=== PATIENT | male | born 1955 | race Caucasian/White ===

== ENCOUNTER 2019-04-07 08:45 | Emergency (ER) | payer OTHER ==
--- NOTE | 2019-04-07 11:04 | ED ---
Lower Extremity - HPI Summary HPI Summary: Patient is a 63-year-old male presenting to the ED with worsening right hip and groin pain over the past several weeks. He states at this time he is beginning to use a cane as symptoms have worsened. Denies any issues with range of motion. Denies any trauma or discolorations. Denies any numbness or tingling to the bilateral lower extremities. His most notably to the right lateral side of the hip and is non-radiating. Denies back pain, abdominal pain or SOB. Has been taking ibuprofen with minimal relief. - History of Current Complaint Chief Complaint: EDHipPelvisInjury Stated Complaint: PAIN IN RIGHT HIP PER PT Time Seen by Provider: 04/07/19 08:56 Hx Obtained From: Patient Mechanism Of Injury: Other - no trauma Onset/Duration: Worse Since - 3 months has been worsening Severity Initially: Moderate Severity Currently: Moderate Pain Intensity: 2 Pain Scale Used: 0-10 Numeric Timing: Constant Location: Is Discrete @ - right lateral hip Character Of Pain: Aching Associated Signs And Symptoms: Negative: Swelling, Bruising, Weakness, Dizziness , Knee Pain Aggravating Factor(s): Standing, Ambulation Alleviating Factor(s): Rest Able to Bear Weight: Yes - painful and is now using cane for ambulation - Risk Factors Gout Risk Factors: Negative DVT Risk Factors: Negative Septic Arthritis Risk Factor: Negative - Allergies/Home Medications Allergies/Adverse Reactions: Allergies Allergy/AdvReac Type Severity Reaction Status Date / Time No Known Allergies Allergy Verified 04/07/19 09:38 Home Medications: Home Medications Naproxen Sodium [Aleve] 220 mg PO BID PRN 04/07/19 [History Confirmed 04/07/19] PMH/Surg Hx/FS Hx/Imm Hx Previously Healthy: Yes Endocrine/Hematology History: Denies: Hx Diabetes Cardiovascular History: Reports: Other Cardiovascular Problems/Disorders - ON B- KATHLEEN (PORTAL HTN?) & LASIX (EDEMA?) Denies: Hx Congestive Heart Failure, Hx Hypertension GI History: Reports: Hx Cirrhosis, Other GI Disorders - 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 History: Reports: Hx Kidney Stones, Other Problems/Disorders - RENAL CALCULI Denies: Hx Renal Disease Sensory History: Reports: Hx Contacts or Glasses - FOR READING Opthamlomology History: Reports: Hx Contacts or Glasses - FOR READING - Immunization History Hx Pertussis Vaccination: No Immunizations Up to Date: Yes Infectious Disease History: Yes Infectious Disease History: Reports: Hx Hepatitis - HEPATITIS C Denies: Traveled Outside the [place] in Last 30 Days - Social History Occupation: Employed Full-time Lives: Alone Alcohol Use: None Hx Substance Use: No Substance Use Type: Reports: None Smoking Status (MU): Former Smoker Type: Cigarettes Have You Smoked in the Last Year: Yes Review of Systems Constitutional: Negative Negative: Fever, Chills, Fatigue, Skin Diaphoresis Negative: Palpitations, Chest Pain Negative: Shortness Of Breath, Cough Genitourinary: Negative Positive: no symptoms reported, see HPI Positive: Arthralgia - right sided hip pain - lateral. Negative: Myalgia Skin: Negative Neurological: Negative All Other Systems Reviewed And Are Negative: Yes Physical Exam Triage Information Reviewed: Yes Vital Signs On Initial Exam: Initial Vitals Temp Pulse Resp BP Pulse Ox 99.4 F 113 18 143/79 98 04/07/19 08:52 04/07/19 08:52 04/07/19 08:52 04/07/19 08:52 04/07/19 08:52 Vital Signs Reviewed: Yes Appearance: Positive: Well-Appearing, Well-Nourished Skin: Positive: Warm, Skin Color Reflects Adequate Perfusion Head/Face: Positive: Normal Head/Face Inspection Eyes: Positive: EOMI, Conjunctiva Clear Neck: Positive: Supple, No Lymphadenopathy Respiratory/Lung Sounds: Positive: Clear to Auscultation, Breath Sounds Present Cardiovascular: Positive: Normal, RRR, Pulses are Symmetrical in both Upper and Lower Extremities Musculoskeletal: Positive: Pain @ - right sided lateral hip pain - not worse with palpation Neurological: Positive: Sensory/Motor Intact, Alert, Oriented to Person Place, Time Psychiatric: Positive: Normal, Affect/Mood Appropriate AVPU Assessment: Alert Diagnostics - Vital Signs Vital Signs Temp Pulse Resp BP Pulse Ox 04/07/19 08:52 99.4 F 113 18 143/79 98 - Laboratory Result Diagrams: 04/07/19 11:21 04/07/19 11:21 Lab Statement: Any lab studies that have been ordered have been reviewed, and results considered in the medical decision making process. Lower Extremity Course/Dx - Course Course Of Treatment: During the course of treatment, the patient is evaluated for right lateral hip pain which is been worsening over the past 3 weeks. He states he is to the point where he is trying to use a cane. He states he is very active and is otherwise healthy and voices no other complaints at this time. He denies any back pain. He has pain over palpation to the right lateral hip without radiation. As patient continues to remain ambulatory without range of motion issues, I am not suspecting a fracture, although other pathologies were considered, so a CT was obtained. CT evidence for multiple expansile lytic lesions present throughout the pelvic bones, the L4 and L5 vertebra, the sacrum and in both proximal femurs most consistent with metastatic disease or multiple myeloma. A large lesion in the right iliac bone has both medial and lateral cortical breakthrough and a nondisplaced pathologic fracture. At this time, patient is made aware and labs are obtained. Called oncology, Dr. Vasques, Called Dr. Beasley, orthopedics, - Diagnoses Differential Diagnosis/HQI/PQRI: Positive: Fracture (Closed), Fracture (Open), Infection Provider Diagnoses: Lytic bone lesion of right femur, Metastasis - Physician Notifications Discussed Care Of Patient With: Dex Vasques - New patient visit Time Discussed With Above Provider: 11:30 - Provider called office at 11:30 and made appt for tomorrow for patient at 4pm with Dr. Vasques Instructed by Provider To: Have Pt Call For Appt. Discharge - Sign-Out/Discharge Documenting (check all that apply): Patient Departure Patient Received Moderate/Deep Sedation with Procedure: No - Discharge Plan Condition: Good Disposition: HOME Prescriptions: Ketorolac TAB * [Toradol TAB *] 10 mg PO Q6H #16 tab Referrals: Dex Vasques MD [Medical Doctor] - Carol Palmer MD [Primary Care Provider] - Additional Instructions: Please follow up with Dr. Vasques tomorrow at 11am, please arrive 15 min early for paperwork Use the cane for weight bearing - Billing Disposition and Condition Condition: GOOD Disposition: Home
[2019-04-07 11:30] LABS: Hematocrit 38 % (42-52); Hemoglobin 13.2 g/dL (14.0-18.0); Mean Corpuscular HGB Conc 35 g/dL (31-36); Mean Corpuscular Hemoglobin 35 pg (27-31); Mean Corpuscular Volume 99 fL (80-94); Platelet Count 108 10^3/uL (150-450); Red Blood Count 3.81 10^6 /uL (4.18-5.48); Red Cell Distribution Width 14 % (10.5-15); White Blood Count 7.7 10^3/uL (3.5-10.8)
[2019-04-07 11:48] LABS: Albumin 3.9 g/dL (3.2-5.2); Albumin/Globulin Ratio 1.1 (1-3); BUN/Creatinine Ratio 29.2 (8-20); C Reactive Protein 24.71 mg/L (<8.01); Calcium 9.4 mg/dL (8.6-10.3); EGFR African American 150.6 (>60); EGFR Non-African American 124.5 (>60); Globulin 3.7 g/dL (2-4); Magnesium 2.2 mg/dL (1.9-2.7); Potassium 3.9 mmol/L (3.5-5.0); Total Bilirubin 1.5 mg/dL (0.2-1.0); Total Protein 7.6 g/dL (6.4-8.9)
[2019-04-07] MEDS ORDERED: Ketorolac INJ* 60 MG/2 ML VIAL IM ONE (12:09)
[2019-04-07 12:21] VITALS: BP 148/68
== END 2019-04-07 12:20 | disposition home or self-care (01) ==
LOC: ED 08:45
DX: M89.8X5 Other specified disorders of bone, thigh (principal); M89.28 Other disorders of bone development and growth, other site; M84.454A Pathological fracture, pelvis, initial encounter for fracture; C79.9 Secondary malignant neoplasm of unspecified site; K74.60 Unspecified cirrhosis of liver; B19.20 Unspecified viral hepatitis C without hepatic coma; Z87.891 Personal history of nicotine dependence
CPT/HCPCS: 36415; 72192; 80053; 83605; 83735; 85027; 86140; 96372; 99282; J1885

== ENCOUNTER 2019-06-05 04:54 | Inpatient (IN) | payer OTHER ==
[2019-06-05] MEDS ORDERED: NS 0.9% 1000 ML** 1,000 ML IV SCH ×2 (05:30→08:00)
[2019-06-05] MEDS ORDERED: Pantoprazole* 80 mg IN NS 80 MG/250 ML BAG IV ONE (05:32)
[2019-06-05] MEDS ORDERED: Pantoprazole IV* 40 MG IV ONE (05:32)
--- NOTE | 2019-06-05 05:42 | ED ---
Complex/Multi-Sys Presentation - HPI Summary HPI Summary: This patient is a 64 year old M presenting to [facility] accompanied by his significant other with a chief complaint of vomiting bloody mucous since today. He is currently getting treated for multiple myeloma. Pt finished radiation therapy one week ago and started chemotherapy 3 days ago. Pt takes Percocet for pain, and is on chemotherapy and ABD pain medication. He occasionally takes naproxen, but has not taken it in the last few days. Pt does not take Motrin or Aspirin. Pt has hx of hepatitis C and varices. The patient rates the pain 0/10 in severity. Symptoms aggravated by nothing. Symptoms alleviated by nothing. Patient reports nasal discharge, last normal BM yesterday. Patient denies dizziness. He states his last blood transfusion was in 2011. - History Of Current Complaint Chief Complaint: EDGIBleed Time Seen by Provider: 06/05/19 05:11 Hx Obtained From: Patient, Other: - significant other Onset/Duration: Sudden Onset, Lasting Days - since today Timing: Constant, Days - since today Severity Currently: Moderate - ann discharge, last normal BM yesterday. Patient denies dizziness. Aggravating Factor(s): nothing Alleviating Factor(s): nothing Associated Signs And Symptoms: Positive: Vomiting, Other - positive - nasal discharge, last normal BM yesterday.. 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 History: Reports: Hx Kidney Stones, Other Problems/Disorders - RENAL CALCULI Denies: Hx Renal Disease Sensory History: Reports: Hx Contacts or Glasses - FOR READING Opthamlomology History: Reports: Hx Contacts or Glasses - FOR READING - Surgical History Surgical History: Yes Infectious Disease History: No Infectious Disease History: Reports: Hx Hepatitis - HEPATITIS C Denies: Traveled Outside the [place] in Last 30 Days - Family History Known Family History: Positive: None - Social History Alcohol Use: Rare Hx Substance Use: No Substance Use Type: Reports: None Smoking Status (MU): Former Smoker Type: Cigarettes Have You Smoked in the Last Year: Yes Review of Systems Positive: Nasal Discharge Positive: Vomiting Genitourinary: Other - positive - last normal BM yesterday Neurological: Other - negative - dizziness Psychological: Other All Other Systems Reviewed And Are Negative: Yes Physical Exam - Summary Physical Exam Summary: VITAL SIGNS: Reviewed. GENERAL: Patient is a well-developed and nourished MALE who is lying comfortable in the stretcher. Patient is not in any acute respiratory distress. HEAD AND FACE: No signs of trauma. No ecchymosis, hematomas or skull depressions. No sinus tenderness. EYES: PERRLA, EOMI x 2, No injected conjunctiva, no nystagmus. EARS: Hearing grossly intact. Ear canals and tympanic membranes are within normal limits. MOUTH: Oropharynx within normal limits. NECK: Supple, trachea is midline, no adenopathy, no JVD, no carotid bruit, no c- spine tenderness, neck with full ROM CHEST: Symmetric, no tenderness at palpation LUNGS: Clear to auscultation bilaterally. No wheezing or crackles. CVS: Regular rate and rhythm, S1 and S2 present, no murmurs or gallops appreciated. ABDOMEN: Soft, non-tender. No signs of distention. No rebound no guarding, and no masses palpated. Bowel sounds are normal. EXTREMITIES: Pale and bilateral lower extremity edema. FROM in all major joints , no edema, no cyanosis or clubbing. NEURO: Alert and oriented x 3. No acute neurological deficits. Speech is normal and follows commands. SKIN: Dry and warm RECTAL: brown stool Triage Information Reviewed: Yes Vital Signs On Initial Exam: Initial Vitals Temp Pulse Resp BP Pulse Ox 97.8 F 100 18 123/66 99 06/05/19 04:55 06/05/19 04:55 06/05/19 04:55 06/05/19 04:55 06/05/19 04:55 Vital Signs Reviewed: Yes Diagnostics - Vital Signs Vital Signs Temp Pulse Resp BP Pulse Ox 06/05/19 04:55 97.8 F 100 18 123/66 99 - Laboratory Result Diagrams: 06/05/19 05:55 06/05/19 05:55 Lab Statement: Any lab studies that have been ordered have been reviewed, and results considered in the medical decision making process. - EKG 0538 Cardiac Rate: Tachycardia - 102 BPM EKG Rhythm: Sinus Rhythm Summary of EKG Findings: sinus rhythm, 102 BPM, non specific T wave change Complex Multi-Symp Course/Dx Course Of Treatment: This patient is a 64 year old M presenting to [facility] accompanied by his significant other with a chief complaint of vomiting bloody mucous since today. He is currently getting treated for multiple myeloma. Pt finished radiation therapy one week ago and started chemotherapy 3 days ago. Pt takes Percocet for pain, and is on chemotherapy and ABD pain medication. He occasionally takes naproxen, but has not taken it in the last few days. Pt does not take Motrin or Aspirin. Pt has hx of hepatitis C and varices. The patient rates the pain 0/10 in severity. Symptoms aggravated by nothing. Symptoms alleviated by nothing. Patient reports nasal discharge, last normal BM yesterday. Patient denies dizziness. He states his last blood transfusion was in 2011. Patient stated that he has history of hepatitis C that was treated for years ago. Patient stated that he did have bleeding esophageal versus back then. Patient has not had any endoscopy for the last few years. I am not sure if patient's upper GI bleeding from esophageal varices versus peptic ulcer. Case discussed with product development student admissions clerk, Dr. Pickering. He stated that esophageal varices does not regress even if the hepatitis C has been cleared and treated. Had recommended the patient should be treated with octreotide and PPI simultaneously. Physical exam shows pale and bilateral lower extremity edema as well as brown stool. EKG at 0538 shows sinus rhythm, 102 BPM, non specific T wave change. Lab results show RBC 1.82, Hgb 6.5, Hct 19, MCV 107, MCH 36, RDW 18, Plt Count 56, absolute lymphs 0.6, INR 1.47, sodium 134, BUN 34 , BUN/creatinine ratio 47.9, glucose 115, calcium 8.1, total bilirubin 1.30, AST 86, alkaline phosphatase 200, ammonia 106, total protein 5.6, albumin 3.1. During ED course, the pt was given Fluids, Octreotide Acetate, and Protonix. Dx are esophageal varices and upper GI bleed. At 0653, Dr. Padilla discusses pt's case with Dr. Mosley, hospitalist, who agrees to admit pt. Pt is agreeable. - Diagnoses Provider Diagnoses: Esophageal varices, Upper GI bleed - Physician Notifications Discussed Care Of Patient With: Re Mosley Time Discussed With Above Provider: 06:53 Instructed by Provider To: Other - Dr. Padilla discusses pt's case with Dr. Mosley, hospitalist, who agrees to admit pt. Discharge - Sign-Out/Discharge Documenting (check all that apply): Patient Departure - admit Patient Received Moderate/Deep Sedation with Procedure: No - Discharge Plan Condition: Stable Disposition: ADMITTED TO [facility] Referrals: Carol Palmer MD [Primary Care Provider] - - Attestation Statements Document Initiated by Scribe: Yes Documenting Scribe: Bennett Hemphill Provider For Whom Scribe is Documenting (Include Credential): Dr. Sukhwinder Padilla MD Scribe Attestation: Bennett George scribed for Dr. Sukhwinder Padilla MD on 06/05/19 at 0723. Status of Scribe Document: Ready
[2019-06-05] MEDS ORDERED: Octreotide Acetate* 500 MCG in NS 0.9% 100 ML* 100 ML IV SCH (06:00)
[2019-06-05] MEDS ORDERED: Octreotide Acetate* 50 MCG in NS 0.9% 50 ML* 50 ML IV ONE (06:00)
[2019-06-05] MEDS ORDERED: NS 0.9% 100 ML* 100 ML ONE (06:10)
[2019-06-05 06:27] LABS: ABS Eosinophils 0.2 10^3/ul (0-0.6); ABS Lymphocytes 0.6 10^3/ul (1.0-4.8); ABS Monocytes 0.4 10^3/ul (0-0.8); ABS Neutrophils 4.3 10^3/ul (1.5-7.7); Eosinophil % 3.5 %; Hematocrit 19 % (42-52); Hemoglobin 6.5 g/dL (14.0-18.0); Lymphocyte % 10.1 %; Mean Corpuscular HGB Conc 34 g/dL (31-36); Mean Corpuscular Hemoglobin 36 pg (27-31); Mean Corpuscular Volume 107 fL (80-94); Mean Platelet Volume 9.6 fL (7.4-10.4); Platelet Count 56 10^3/uL (150-450); Red Blood Count 1.82 10^6 /uL (4.18-5.48); Red Cell Distribution Width 18 % (10-15); White Blood Count 5.5 10^3/uL (3.5-10.8)
[2019-06-05 06:32] LABS: Albumin 3.1 g/dL (3.2-5.2); Albumin/Globulin Ratio 1.2 (1-3); BUN/Creatinine Ratio 47.9 (8-20); Calcium 8.1 mg/dL (8.6-10.3); EGFR African American 135.6 (>60); EGFR Non-African American 112.1 (>60); Globulin 2.5 g/dL (2-4); Potassium 3.5 mmol/L (3.5-5.0); Total Bilirubin 1.3 mg/dL (0.2-1.0); Total Protein 5.6 g/dL (6.4-8.9)
[2019-06-05 06:41] LABS: Activated Partial Thrombo Time 26.4 seconds (26.0-38.0); INR 1.47 (0.82-1.09)
[2019-06-05] MEDS ORDERED: Ondansetron INJ* 2 MG/ML VIAL IV ONE (07:27)
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
[2019-06-05] MEDS: Morphine INJ* 2 MG/ML 1 ML SYRINGE (TWO MG - NEW SYRINGE VERSION) IV PRN (11:09)
[2019-06-05] MEDS ORDERED: fentaNYL* 50 MCG/ML 2 ML VIAL (100 MCG VIAL) ONE ×2 (14:30→21:16)
[2019-06-05] MEDS ORDERED: Midazolam* 1 MG/ML 10 ML VIAL (10 MG) ONE ×2 (14:30→21:16)
[2019-06-05] MEDS ORDERED: Pantoprazole* 80 mg IN NS 80 MG/250 ML BAG IV SCH (15:30)
[2019-06-05] MEDS: Octreotide Acetate* 500 MCG/ML 1 ML VIAL IV ONE ×2 (15:45→16:38)
[2019-06-05] MEDS: Octreotide Acetate* 500 MCG in NS 0.9% 100 ML* 100 ML IV SCH (16:36)
[2019-06-05] MEDS: cefTRIAXone(*) 1 GM in NS 0.9% 50 ML* 50 ML IVPB SCH (16:38)
--- NOTE | 2019-06-05 16:47 | CONS ---
GASTROENTEROLOGY CONSULT REPORT: DATE OF CONSULT: 06/05/19 REQUESTING PROVIDER: Dr. Diaz, ICU. REASON FOR CONSULT: Concern for upper GI bleed. HISTORY OF PRESENT ILLNESS: Mr. Gallagher is a 64-year-old gentleman with a history of multiple myeloma (on Revlimid) and hepatitis C cirrhosis complicated by esophageal varices with a variceal bleeding episode in 2011, who presents to the ER with several episodes of hematemesis. Mr. Gallagher is currently undergoing therapy for multiple myeloma. He underwent radiation therapy to his hip, and he is now on Revlimid, (today is day 3.) He felt well until this morning around 3 a.m. He woke up and felt that he had a significant amount of allergic-related phlegm. He tried to cough this phlegm up , which seemed to trigger a vomiting episode. He noticed that there was a small amount of fresh red blood in the emesis. He presented to the ER where he had a similar episode of small volume (estimated to be half a cup) hematemesis. No recurrent hematemesis since this time. No nausea, vomiting, abdominal pain , GERD, diarrhea or constipation. He had a bowel movement this morning that he thought looked normal, although nursing mentioned it smelled a bit like melena. The patient uses occasional naproxen but none recent. History of hepatitis C with a variceal bleed in 2011. Hepatitis C was treated with Harvoni. Last EGD in 2013 demonstrated small esophageal varices not requiring banding. There was also mild portal hypertensive gastropathy. He was instructed to maintain on nadolol and repeat the EGD in 1 year, although this has not happened. When asked about the beta- bere, he says that he stopped the nadolol sometime ago because he was feeling well. PAST MEDICAL HISTORY: 1. Hepatitis C cirrhosis, status post treatment for hepatitis C. Cirrhosis complicated by esophageal varices with bleeding in the 2011 requiring banding. 2. Multiple myeloma, now on Revlimid. Recently finished radiation therapy to hip. PAST SURGICAL HISTORY: None. MEDICATIONS: 1. Hydrocodone with acetaminophen 5/325 up to 9 tablets a day. 2. Morphine ER 15 mg b.i.d. p.r.n. 3. Acyclovir 400 b.i.d. 4. Compazine 10 mg p.r.n. 5. Dexamethasone 4 mg weekly. 6. Aspirin 81 mg daily. 7. Revlimid 25 mg as directed by Heme-Onc. ALLERGIES: No known drug allergies. FAMILY HISTORY: No GI or liver disease. 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 He is a former smoker. No alcohol use. No drug use other than medical marijuana recently. REVIEW OF SYSTEMS: The patient has noted some petechiae and easy bruising. He also reports right hip pain, which is related to a fracture in the setting of multiple myeloma. This is the hip that he had treated with radiation therapy recently. Otherwise complete 12 point review of system is negative except as above. PHYSICAL EXAM: Vital Signs: Heart rate 90, blood pressure 112/62. General: Chronically ill-appearing gentleman, pale, no acute distress. HEENT: Dried blood seen on patient's lips. Pulm: Breathing comfortably. Lungs clear. Cardiovascular: Regular rate and rhythm. Abdomen: Soft and mildly distended abdomen. Nontender. Extremities: No edema. Skin: Pale, no jaundice. DIAGNOSTIC STUDIES/LAB DATA: Labs reviewed, white count 5.5, hemoglobin 6.5, hematocrit 19. This is in comparison to a hemoglobin of 8.9 on 06/01/19 and 12.8 on 05/01/19. MCV 107. INR 1.47. Sodium 134, BUN 34, creatinine 0.71. Bilirubin 1.3, AST 86, ALT 25, alk-phos 200. Albumin 3.1. Imaging: No recent abdominal imaging. IMPRESSION AND RECOMMENDATIONS: Mr. Gallagher is a 64-year-old gentleman with a history of multiple myeloma on Revlimid, and hepatitis C cirrhosis complicated by variceal bleeding in 2011, who presents with several episodes of hematemesis and acute anemia. Mr. Gallagher is hemodynamically stable. No episode of hematemesis since approximately 6 am. Denies any melena. Differential certainly includes variceal bleed, esophagitis, peptic ulcer disease, portal hypertensive gastropathy. 1. NPO. 2. Plan for EGD urgently in the ICU. 3. The patient is receiving 2 units of blood and 1 unit of FFP. CBC and INR to be closely monitored. 4. Recommend starting ceftriaxone for prophylaxis given the concern for upper GI bleeding in a cirrhotic patient. 5. Recommend octreotide and PPI drips. Thank you for this consult. [id number]/[facility] #: [id number] RABIA
[2019-06-05 18:00] LABS: Hematocrit 20 % (42-52)
[2019-06-05] MEDS ORDERED: Prochlorperazine TAB* 10 MG PO PRN (18:00)
--- NOTE | 2019-06-05 18:10 | PRO ---
PROCEDURE REPORT: DATE OF PROCEDURE: 06/05/19 PROCEDURE: EGD. INDICATION: The patient presented with several episodes of small volume hematemesis. Hemoglobin dropped from recent baseline. No melena. No hematemesis since 6 a.m. Hemodynamically stable. History of hepatitis C cirrhosis with a variceal bleeding in 2011. He was banded at that point and followup EGD in 2013 demonstrated small varices. He was on nadolol, but he discontinued that sometime over the past few years. His hepatitis C was treated. He is currently receiving Revlimid for multiple myeloma. MEDICATIONS GIVEN: 1. Midazolam 3 mg IV. 2. Fentanyl 25 mcg IV. DESCRIPTION OF PROCEDURE: Full disclosure of risks was reviewed with the patient as detailed on the consent form. The patient was placed in the left lateral decubitus position and monitored with continuous pulse oximetry, capnography, interval blood pressure monitoring, and direct observation. A bite block was placed between the patient's teeth. An adult gastroscope was then inserted into the patient's mouth and advanced down the esophagus, into the stomach, and into the distal duodenum. Findings and interventions are described below. FINDINGS: There were small to medium esophageal varices in the mid and distal esophagus. These varices largely flattened with insufflation. There was no evidence of high-risk stigmata on the varices. The scope was advanced into the stomach. Stomach was examined in the forward and retroflexed views. There was a small- to medium-size hiatal hernia. There was a small amount of old blood seen throughout the stomach. This blood was suctioned away. Views of the gastric mucosa were adequate. Mild portal hypertensive gastropathy. There were no erosions or ulcers. Retroflexion did not reveal any gastric varices. Scope was then advanced into the duodenum to at least the third portion. Duodenal mucosa was unremarkable. No fresh or old blood. Scope was then withdrawn back to the esophagus. Varices were again inspected. No high-risk stigmata seen on second look. Scope was then withdrawn from the patient. The patient tolerated the procedure well and was recovered in the GI recovery area. IMPRESSION: 1. Complete upper endoscopy to the distal duodenum. 2. Small- to medium-size esophageal varices. No high-risk stigmata. 3. Small amount of old blood in the stomach. 4. Mild portal hypertensive gastropathy. 5. Hiatal hernia. FOLLOWUP: 1. Continue to monitor CBC and INR. The patient is due for repeat CBC now. 2. Continue octreotide and PPI drip for now. 3. Recommend ceftriaxone daily for SBP prophylaxis given upper GI bleed. 4. Clear diet for now. 5. No clear source of bleeding identified on this exam, although it certainly did appear that he had an upper GI bleeding episode given the old bleed seen on the stomach. I am quite concerned that perhaps he did have a variceal bleed. Varices can change in response to hemodynamics. The patient did have a hemoglobin drop and his blood pressure was borderline low (75 to 90 systolic) during the case due to sedation. Possible that the varices were partially flattened as a result of these hemodynamic changes. I would have expected to see stigmata of recent bleeding, which I did not see. Regardless, I would strongly encourage proceeding as if the patient had a variceal bleed in terms of octreotide gtt. Would also like to perform a second-look EGD tomorrow to reassess the varices and consider banding if any of the varices are larger at that time or there is evidence of high-risk stigmata. I discussed my findings and my recommendations with the patient and his partner. The patient is fairly adamant that he would not like to stay in the hospital and is interested in going home tonight. I reviewed with him the risks associated with that choice include life-threatening bleeding and . He indicates that he will let us know his decision, but that he again is inclined to go home tonight. I hope that the patient will stay and not leave AMA. I do wonder if hepatic encephalopathy may be developing and clouding his decision-making. Monitor and consider Lactulose if patient becomes clearly encephalopathic. Please contact me with any acute clinical change including recurrence of hematemesis. [id number]/[facility] #: [id number] RABIA
[2019-06-05] MEDS: PROCHLORPERAZINE INJ 5 MG/ML 2 ML VIAL IV PRN (20:06)
[2019-06-05] MEDS ORDERED: Erythromycin Lactobionate VIAL 250 MG in NS 0.9% 100 ML* 100 ML IVPB ONE (20:20)
[2019-06-05] MEDS ORDERED: NS 0.9% 1000 ML** 1,000 ML IV ONE (20:21)
[2019-06-05] MEDS ORDERED: Metoclopramide IV* 5 MG/ML 2 ML VIAL IV SLOW PU ONE (21:00)
--- NOTE | 2019-06-05 21:13 | PN ---
Progress Note - Progress Note Date of Service: 06/05/19 Note: GI Follow-up: Recurrent episode of hematemesis (300-500 cc red blood w/ clots) this evening. BP 70's-90's systolic. HR 100's. Receiving additional unit of blood. - Will plan for urgent EGD to reassess - Give Reglan 10 mg IV prior to procedure (Erythromycin on backorder nationally , per pharmacy) - Continue fluid resuscitation Ivette Corbett MD Gastroenterology
[2019-06-05] MEDS: Norepinephrine VIAL 8 MG in NS 0.9% 500 ML IV SCH (21:30)
--- NOTE | 2019-06-05 22:22 | CONSULT ---
Consult Consult: Consultation Note -- Critical Care Requesting Physician: Dr Corbett Reason for consult: GI hemorrhage Limitations in history/physical: sedated post procedure Date of consult: 06/05/2019 HPI: 64y M w/pmhx of Multiple Myeloma on chemo/radation tx, h/o Hep C, Cirrhosis , esophageal varices ; patient comes to [facility] ER 06/05 for complaints of vomiting of blood yesterday. Hg was to 6.5, last being 12s in April and March. He was given PRBC. Today he had an EGD in AM which demonstrated varices but no acute source of bleeding identified. Continued on octreotide/PPI infusion. HE was stable throughout the day and then again this evening started to vomit up blood. He was ordered for 4 more PRBC, he became hypotensive. Dr Corbett came in, another EGD performed and after multiple looks a bleeding varice identified and banded. Patient is not intubated, sats okay, BP improved with levophed and PRBC transfusing. ROS: ROS limited due to sedation PMHx: Multiple Myeloma on chemo/radation tx, h/o Hep C, Cirrhosis, esophageal varices PSHx: none Family History: None Social History: Alcohol-rare, Smoking-former, Drug use-none; Job; family Allergies: Allergies Allergy/AdvReac Type Severity Reaction Status Date / Time No Known Allergies Allergy Verified 04/07/19 09:38 Home Medications: Ketrolac TAB * [Toradol TAB *] 10 mg PO Q6H #16 tab 04/07/19 [Rx Confirmed 06/05] Naproxen Sodium [Aleve] 220 mg PO BID PRN 04/07/19 [History Confirmed 06/05/19] Acyclovir [Zovirax] 400 mg PO BID 06/05/19 [History Confirmed 06/05/19] Aspirin [Aspirin Childrens 81 MG] 81 mg PO DAILY 06/05/19 [History Confirmed ] Dexamethasone [Decadron] 4 mg PO WEEKLY 06/05/19 [History Confirmed 06/05/19] Docusate CAP* [Colace Cap*] 100 mg PO DAILY 06/05/19 [History Confirmed 06/05/19 ] Hydrocodone/Acetaminophen [Hydrocodone/Acetaminophen 5-325 mg] 1 tab PO Q4HR [History Confirmed 06/05/19] Lenalidomide [Revlimid] 25 mg PO DAILY 06/05/19 [History Confirmed 06/05/19] Morphine Sulfate [Ms Contin] 15 mg PO BID 06/05/19 [History Confirmed 06/05/19] Prochlorperazine TAB* [Compazine Tab*] 10 mg PO Q6HR 06/05/19 [History Confirmed 06/05/19] Tele: NSR Vitals: Vital Signs Temp 97.0 F 06/05/19 19:20 Pulse 88 06/05/19 19:01 Resp 17 06/05/19 20:00 BP 102/52 06/05/19 19:01 Pulse Ox 100 06/05/19 19:01 Intake & Output 06/05/19 06/05/19 06/06/19 06:59 18:59 06:59 Intake Total 263 Output Total 525 Balance -262 Weight 73.482 kg 73.3 kg Intake: IV Fluids 50 Fresh Frozen Plasma 213 Output: Urine 525 Other: Estimated Stool Amount Medium O2/Vent: NC Infusions: octreotide, ppi, prbc, ivf, levophed Current Medications: Hydrocodone Bitart/Acetaminophen (Sarah Ann 5-325 Tab*) 1 tab PO Q4H PRN PRN Reason: PAIN - MODERATE Acyclovir (Zovirax Tab*) 400 mg PO BID BLAYNE Sodium Chloride (Ns 0.9% 1000 Ml) 1,000 mls @ 125 mls/hr IV PER RATE [facility] Last Admin: 06/05/19 20:44 Dose: 125 mls/hr Pantoprazole Sodium (Protonix Iv Bag*) 80 mg in 250 mls @ 25 mls/hr IV Q10H BLAYNE Last Admin: 06/05/19 18:29 Dose: 25 mls/hr Ceftriaxone Sodium 1 gm/ (Sodium Chloride) 50 mls @ 200 mls/hr IVPB Q24H BLAYNE Last Admin: 06/05/19 16:38 Dose: 200 mls/hr Octreotide Acetate 500 mcg/ (Sodium Chloride) 101 mls @ 10.1 mls/hr IV Q10H BLAYNE ; Protocol Last Admin: 06/05/19 16:36 Dose: 10.1 mls/hr Norepinephrine Bitartrate 8 mg (/ Sodium Chloride) 500 mls @ 18.75 mls/hr IV Q24H BLAYNE; Protocol Morphine Sulfate (Morphine Inj (Syringe))*) 2 mg IV Q2H PRN PRN Reason: PAIN - MILD Last Admin: 06/05/19 11:09 Dose: 2 mg Morphine Sulfate (Ms Contin(*)) 15 mg PO BID BLAYNE Prochlorperazine (Compazine Tab*) 10 mg PO Q6H PRN PRN Reason: NAUSEA Prochlorperazine Edisylate (Compazine Inj*) 5 mg IV Q6H PRN PRN Reason: NAUSEA/VOMITING Last Admin: 06/05/19 20:06 Dose: 5 mg Physical Exam: Constitutional: awake, sedated post procedure and during, no distress, no diaphoresis Head: normocephalic, atraumatic Eyes: +++ pallor, no icterus ENT: DRY mucous membranes Neck: soft, supple, no jvd, no stridor CVS: normal rate, regular, no murmur Resp: bilateral air entry, no RRW, no acc muscle use Abdomen/GI: soft, nontender, nondistended, BS+ Ext/Msk: warm, pulses+, no edema Skin: intact, warm Neuro: awakens, sedated post procedure Labs: Laboratory Results - last 24 hr 06/05/19 06/05/19 06/05/19 05:55 05:55 05:55 WBC 5.5 RBC 1.82 L Hgb 6.5 L Hct 19 L MCV 107 H MCH 36 H MCHC 34 RDW 18 H Plt Count 56 L MPV 9.6 Neut % (Auto) 78.5 Lymph % (Auto) 10.1 Orange % (Auto) 7.3 Eos % (Auto) 3.5 Baso % (Auto) 0.6 Absolute Neuts (auto) 4.3 Absolute Lymphs (auto) 0.6 L Absolute Monos (auto) 0.4 Absolute Eos (auto) 0.2 Absolute Basos (auto) 0.0 Absolute Nucleated RBC 0.0 Nucleated RBC % 0.0 INR (Anticoag Therapy) 1.47 H APTT 26.4 Sodium 134 L Potassium 3.5 Chloride 105 Carbon Dioxide 22 Anion Gap 7 BUN 34 H Creatinine 0.71 Est GFR ( Amer) 135.6 Est GFR (Non-Af Amer) 112.1 BUN/Creatinine Ratio 47.9 H Glucose 115 H Calcium 8.1 L Total Bilirubin 1.30 H AST 86 H ALT 25 Alkaline Phosphatase 200 H Ammonia Total Protein 5.6 L Albumin 3.1 L Globulin 2.5 Albumin/Globulin Ratio 1.2 Blood Type Antibody Screen Crossmatch 06/05/19 06/05/19 06/05/19 05:55 05:55 17:50 WBC RBC Hgb 7.0 L Hct 20 L MCV MCH MCHC RDW Plt Count MPV Neut % (Auto) Lymph % (Auto) Orange % (Auto) Eos % (Auto) Baso % (Auto) Absolute Neuts (auto) Absolute Lymphs (auto) Absolute Monos (auto) Absolute Eos (auto) Absolute Basos (auto) Absolute Nucleated RBC Nucleated RBC % INR (Anticoag Therapy) APTT Sodium Potassium Chloride Carbon Dioxide Anion Gap BUN Creatinine Est GFR ( Amer) Est GFR (Non-Af Amer) BUN/Creatinine Ratio Glucose Calcium Total Bilirubin AST ALT Alkaline Phosphatase Ammonia 106 H Total Protein Albumin Globulin Albumin/Globulin Ratio Blood Type O Positive Antibody Screen Negative Crossmatch See Detail Imaging: - Assessment: 64y M w/pmhx of Multiple Myeloma on chemo/radation tx, h/o Hep C, Cirrhosis, esophageal varices ; patient comes to [facility] 06/05 for complaints of vomiting of blood yesterday. Hg was to 6.5, last being 12s in April and March. He was given PRBC. Today he had an EGD in AM which demonstrated varices but no acute source of bleeding identified. Continued on octreotide/PPI infusion. HE was stable throughout the day and then again this evening started to vomit up blood. He was ordered for 4 more PRBC, he became hypotensive. Dr Corbett came in, another EGD performed and after multiple looks a bleeding varice identified and banded. Patient is not intubated, sats okay, BP improved with levophed and PRBC transfusing. -Upper GI hemorrhage 2/2 to variceal hemorrhage -hypovolemic shock -acute blood loss anemia -thrombocytopenia -Liver Cirrhosis Multiple Myeloma Plan: Neuro- -avoid more sedation; current on moderate sedation from procedure -Delirium prec; avoid BDZ CVS- -hypotension from blood loss/hemorrhage; transfusing prbc -order plt once cbc returns -central line -check inr/pt again -on levophed but wean off once more volume/blood given -Titrate Pressors to Maintain MAP>65 Resp- -NC, no distress -if he looks stable may not require intubation; but low threshold again -Wean Fio2 to keep sat>92% -Bronchodilators PRN, Aspiration prec, Pulmonary Toilet ID- afebrile. no infectious etiology suspected. no abx indicated. GI- -UGI bleed from esoph varices; s/p banding 06/05 -cont octreotide and ppi infusion -PRBC transfusions -if further bleed, will stat transfer to [facility] for TIPS evaluation; will need a TIPS -NPO Renal- -IVF PRN; check lytes -strict I/O, replete to keep K>4, Mg>2 -hdez as indicated Heme- acute blood loss; transfuse prbc -check plt and inr stat Endo- Maintain BG<200, insulin protocol as needed Musculsk- pressure ulcer prophylaxis. Bedrest. Wounds- none Nutrition- NPO DVT prophylaxis: SCD; no AC GI prophylaxis: PPI Central Line: no Arterial Line: no Hdez Cathetor: no Disposition: Patient requires Critical Care/ICU for UGI hemorrhage, hypovolemic /hemorrhagic shock Patient Clinical Status: unstable, critical Code Status: full code Total Critical Care time is 50 minutes, excluding procedures/teaching Johnnie Diaz MD Automotive Service Assistant (Electronically Signed)
--- NOTE | 2019-06-05 23:10 | OP ---
Operative Report - Blank - Operative Report Date of Operation: 06/05/19 Note: Central Line Procedure Note Indication: venous access Diagnosis: hypovolemic/hemorrhagic shock, acute blood loss anemia, upper gi hemorrhage, esophageal varices Performed by: Johnnie Diaz MD Consent: Informed ; placed in bedside chart Risks of procedure were explained if possible, all risks of pain/discomfort, bleeding, infection, PTX, Hemotx, need for chest tube, air/wire embolism, vessel injury, , and failed procedure disclosed and understanding verbalized [place] Protocol: Time-out was performed and the correct patient and site were verified - Prior labs/history was reviewed prior to procedure - Full sterile precautions with chlorhexidine/full drapes/gowns/gloves utilized - Right Internal Jugular Vein visualized with ultrasound - Vessel accessed under ultrasound guidance with return of nonpulsatile blood. A guidewire was passed into vessel and confirmed in vessel with ultrasound. 1 attempt was made to access vessel. Vessel was dilated and cathetor was passed over wire into vessel. All ports demonstrated good blood return and flushed. Catheter was sutured to site and dressing applied. Adequate hemostasis was achieved EBL <5 cc No immediate complications noted, patient tolerated procedure well. Post Procedure CXR: RIJ in place, terminating at SVC/atrial jxn; no PTX noted Johnnie Diaz MD Rn Interventional (electronically signed)
[2019-06-05 23:18] LABS: INR 1.69 (0.82-1.09)
[2019-06-05 23:27] LABS: Albumin 2.4 g/dL (3.2-5.2); Albumin/Globulin Ratio 1.3 (1-3); BUN/Creatinine Ratio 43.8 (8-20); Calcium 6.8 mg/dL (8.6-10.3); EGFR African American 131.3 (>60); EGFR Non-African American 108.5 (>60); Globulin 1.8 g/dL (2-4); Hematocrit 21 % (42-52); Hemoglobin 7.1 g/dL (14.0-18.0); Mean Corpuscular HGB Conc 35 g/dL (31-36); Mean Corpuscular Hemoglobin 33 pg (27-31); Mean Corpuscular Volume 95 fL (80-94); Platelet Count 73 10^3/uL (150-450); Potassium 4.5 mmol/L (3.5-5.0); Red Blood Count 2.17 10^6 /uL (4.18-5.48); Red Cell Distribution Width 22 % (10-15); Total Bilirubin 1.8 mg/dL (0.2-1.0); Total Protein 4.2 g/dL (6.4-8.9); White Blood Count 13.3 10^3/uL (3.5-10.8)
[2019-06-05] MEDS ORDERED: NS 0.9% 250 ML* 250 ML IV ONE (23:32)
--- NOTE | 2019-06-06 00:01 | PRO ---
PROCEDURE REPORT: DATE OF PROCEDURE: 06/05/19 PROCEDURE: EGD with variceal banding. INPATIENT PROVIDER: Dr. Diaz. INDICATION: The patient has had several episodes of hematemesis. History of hep C cirrhosis with a variceal bleeding in 2011. EGD earlier today demonstrated small to medium varices without any evidence of high-risk stigmata. He developed a recurrent episode of hematemesis this evening. Blood pressure is in the 70s-80s systolic. Patient is less alert. Transfusions ongoing. Plan for urgent repeat EGD to reassess given high suspicion for varices , which were possibly flattened earlier due to earlier bleeding episode. MEDICATIONS: Versed given by ICU staff. DESCRIPTION OF PROCEDURE: Full disclosure of risks was reviewed with the patient as detailed on the consent form. The patient was placed in the left lateral decubitus position and monitored with continuous pulse oximetry, capnography, interval blood pressure monitoring, and direct observation. A bite block was placed between the patient's teeth. An adult gastroscope was then inserted into the patient's mouth and advanced down the esophagus and into the stomach. Findings and interventions are described below. FINDINGS: Esophagus was a tubular structure with several columns of small to medium esophageal varices. There was fresh red blood seen refluxing from the stomach, but there was no active bleeding seen in the esophagus. Scope was briefly advanced into the stomach. Stomach was full of liquid red blood and large clots. Given high concern for esophageal variceal bleed, the scope was withdrawn back into the esophagus. Close attention was paid to the columns of varices in the distal esophagus. There was one varix with possible white nipple sign representing a fibrin plug at the site of recent bleed. This portion of the varix was suctioned into the banding device. Unfortunately, the bedside suction in ICU was weak, and the varix did not lift well into the banding cup. The fibrin plug dislodged resulting in active variceal bleeding with a strong stream of blood seen spurting from the vessel. Further attempts were made to band this actively bleeding varix. Again, the varix did not lift well. The scope was withdrawn from the patient. A portable Irma suction device was then brought into the room from the endo unit. Scope was hooked up to this suction, which was much stronger. A new banding kit was placed on the scope. Scope was then inserted into the patient's esophagus where the actively spurting varix was again visualized. This varix was suctioned into the banding device. One band was deployed with immediate hemostasis. The scope was withdrawn slightly into the mid esophagus, and the varix was watched for several minutes. No evidence of ongoing bleeding identified. The scope was then withdrawn from the patient. The patient tolerated the procedure well and was recovered in the GI recovery area. IMPRESSION: 1. Upper endoscopy to stomach. Active variceal bleed, status-post placement of one band with hemostasis achieved. 2. Large amount of blood and clot seen in stomach related to the variceal bleed. RECOMMENDATIONS: 1. Continue octreotide. 2. Can switch to IV PPI once or twice daily. 3. Continue ceftriaxone once daily. 4. Continue to monitor CBC. Aim to transfuse for hemoglobin between 7 and 9. 5. Recommend keeping blood pressure between the 80 and 100 range. Avoid blood pressure over 100 as this might increase variceal pressure and prompt recurrent bleeding. 6. NPO. GI will continue to follow. Please contact me with any acute clinical change. [id number]/[facility] #: [id number] RABIA
[2019-06-06] MEDS: Acyclovir* 400 MG TAB PO SCH ×3 (00:34→22:33)
[2019-06-06] MEDS: Morphine TAB Extended Release (*) 15 MG TAB.ER PO SCH ×4 (00:34→21:40)
[2019-06-06] MEDS: Morphine INJ* 2 MG/ML 1 ML SYRINGE (TWO MG - NEW SYRINGE VERSION) IV PRN ×6 (01:22→21:41)
[2019-06-06 01:38] LABS: ABS Basophils 0.1 10^3/ul (0-0.2); ABS Eosinophils 0.7 10^3/ul (0-0.6); ABS Lymphocytes 1.2 10^3/ul (1.0-4.8); ABS Neutrophils 10.5 10^3/ul (1.5-7.7); ABS Nucleated RBC 0.1 10^3/ul; Eosinophil % 5.2 %; Lymphocyte % 8.7 %; Nucleated Red Blood Cells % 0.6
[2019-06-06 01:47] LABS: Hematocrit 25 % (42-52); Hemoglobin 8.7 g/dL (14.0-18.0)
[2019-06-06] MEDS: PROCHLORPERAZINE INJ 5 MG/ML 2 ML VIAL IV PRN ×2 (02:22→08:16)
[2019-06-06] MEDS: Octreotide Acetate* 500 MCG in NS 0.9% 100 ML* 100 ML IV SCH ×3 (03:09→23:36)
[2019-06-06 06:42] LABS: Hematocrit 25 % (42-52); Hemoglobin 8.7 g/dL (14.0-18.0); Mean Corpuscular HGB Conc 35 g/dL (31-36); Mean Corpuscular Hemoglobin 33 pg (27-31); Mean Corpuscular Volume 94 fL (80-94); Mean Platelet Volume 9.3 fL (7.4-10.4); Platelet Count 67 10^3/uL (150-450); Red Blood Count 2.63 10^6 /uL (4.18-5.48); Red Cell Distribution Width 20 % (10-15); White Blood Count 14.4 10^3/uL (3.5-10.8)
[2019-06-06 06:48] LABS: Fibrinogen 144.9 mg/dL (110.8-404.3); INR 1.63 (0.82-1.09)
[2019-06-06 06:59] LABS: Albumin 2.6 g/dL (3.2-5.2); Albumin/Globulin Ratio 1.2 (1-3); BUN/Creatinine Ratio 42.7 (8-20); Calcium 7.4 mg/dL (8.6-10.3); EGFR African American 114.8 (>60); EGFR Non-African American 94.9 (>60); Globulin 2.1 g/dL (2-4); Magnesium 2.1 mg/dL (1.9-2.7); Phosphorus 2.5 mg/dL (2.5-5.0); Total Protein 4.7 g/dL (6.4-8.9)
[2019-06-06 10:38] LABS: Hematocrit 24 % (42-52); Hemoglobin 8.5 g/dL (14.0-18.0)
[2019-06-06] MEDS ORDERED: Metoclopramide IV* 5 MG/ML 2 ML VIAL IV SLOW PU ONE (10:46)
[2019-06-06] MEDS: Pantoprazole IV* 40 MG IV SCH ×2 (11:18→23:35)
--- NOTE | 2019-06-06 12:27 | PN ---
Progress Note - Progress Note Date of Service: 06/06/19 Note: GASTROENTEROLOGY FOLLOW-UP IE/S: - EGD yesterday afternoon w/ small to medium varices w/o high risk stigmata. - Developed recurrent hematemesis and hypotension. Urgent bedside EGD late last night demonstrated varix with white nipple sign (fibrin plug). This plug was dislodged with attempted suction into banding device and began actively spurting. Varix was successfully banded with hemostasis. - Received 3 units of blood yesterday evening. Follow-up Hgb this morning has stabilized 8.7 > 8.7. - Had two small episodes of hematemesis (dark red blood) this AM. Passing melena and dark red blood. Follow-up CBC stable (Hgb 8.5). VSS, tachycardic. - Patient denies abdominal pain or nausea. O: SBP 120's-130's, HR 100's-110's GEN: Pale, ill-appearing gentleman. NAD. Interactive. HEENT: MMM CV: Tachycardic PULM: Breathing comfortably ABD: NT/ND, softly distended EXT: No significant edema Labs reviewed. INR 1.6 range. WBC elevated to 14.4. Hgb 8.7/25 x 2 > 8.5/24. A/P: 64yM w/ Hep C Cirrhosis c/b variceal bleed (2011) and multiple myeloma on Revlimid, who is admitted with variceal bleed. Status-post banding of actively spurting varix last night with hemostasis. CBC stable. Patient had two episodes of small volume hematemesis of dark red blood this morning. Suspect that this may represent old blood as significant amount of blood/clot in stomach at time of EGD. No hematemesis in several hours. Blood pressure more than adequate at present. Patient is tachycardic this morning, which will need to be closely monitoring in case this is secondary to recurrent bleeding. - NPO other ice chips (few) - Repeat CBC at 2 PM. Continue to follow CBC closely. Check at least daily CMP, INR. - Continue Octreotide gtt (x 72 hours) - Continue Ceftriaxone daily x 7 days (can switch to po abx once clinically improving) for SBP prophylaxis given UGIB in cirrhotic patient - Continue IV PPI Q12H - Can give Reglan 5-10 mg IV q8 hours to promote gastric emptying of old blood. - Low threshold to repeat EGD if concern for recurrent bleeding. Would likely need transfer to [place] for TIPS in that case. - Avoid over-resuscitation. Hgb should be within 7-9 range. No indication for FFP at this point. - Please obtain liver US w/ doppler to rule-out portal vein thrombosis given variceal bleed. GI will continue to follow. Please call with any acute clinical change. Ivette Corbett MD Gastroenterology
[2019-06-06] MEDS ORDERED: NS 0.9% 250 ML* 250 ML IV ONE (12:29)
--- NOTE | 2019-06-06 12:53 | PN ---
Progress Note - Progress Note Date of Service: 06/06/19 Note: Progress Note -- Critical Care 24 hour events -s/p EGD x2 yesterday; s/p banding of bleeding varice -overnight stable, no further bleeding/vomitting; passage of likley old blood -BP stable, HR more tachy today -this morning 1 larger episode and small episode of vomitting dark blood -no abd pain/sob/cp -hg 8.7, then repeat 8.7 -octreotide infusion ongoing -was on pressors post hemorrhage yesterday but now off; BP 130s Tele: sinus tachy Vitals: Vital Signs Temp 98.5 F 06/06/19 11:32 Pulse 112 06/06/19 12:02 Resp 19 06/06/19 12:02 BP 136/71 06/06/19 12:00 Pulse Ox 97 06/06/19 12:02 Intake & Output 06/05/19 06/06/19 06/06/19 18:59 06:59 18:59 Intake Total 263 3314 Output Total 525 575 240 Balance -262 2739 -240 Weight 73.3 kg 75.6 kg Intake: IV Fluids 50 2893 NS (0.9%) 2893 Medicated IV 421 CC - Norepinephrine/ 50 Levophed GEN - Octreotide 371 Oral 0 Fresh Frozen Plasma 213 Output: Urine 525 575 125 Emesis 115 Other: Estimated Void Medium Date of Last Bowel 06/06/19 Movement # Bowel Movements 1 Estimated Stool Amount Medium Small # Voids 1 O2/Vent: NC Infusions: octreotide Current Medications: Hydrocodone Bitart/Acetaminophen ([place] 5-325 Tab*) 1 tab PO Q4H PRN PRN Reason: PAIN - MODERATE Acyclovir (Zovirax Tab*) 400 mg PO BID [facility] Last Admin: 06/06/19 10:46 Dose: Not Given Sodium Chloride (Ns 0.9% 1000 Ml) 1,000 mls @ 125 mls/hr IV PER RATE [facility] Last Admin: 06/05/19 20:44 Dose: 125 mls/hr Ceftriaxone Sodium 1 gm/ (Sodium Chloride) 50 mls @ 200 mls/hr IVPB Q24H [facility] Last Admin: 06/05/19 16:38 Dose: 200 mls/hr Octreotide Acetate 500 mcg/ (Sodium Chloride) 101 mls @ 10.1 mls/hr IV Q10H [facility] ; Protocol Last Admin: 06/06/19 03:09 Dose: 10.1 mls/hr Norepinephrine Bitartrate 8 mg (/ Sodium Chloride) 500 mls @ 18.75 mls/hr IV Q24H [facility]; Protocol Last Admin: 06/05/19 21:30 Dose: 18.75 mls/hr Metoclopramide HCl (Reglan Iv*) 10 mg IV SLOW PU Q12H [facility] Morphine Sulfate (Morphine Inj (Syringe))*) 2 mg IV Q2H PRN PRN Reason: PAIN - MILD Last Admin: 06/06/19 04:29 Dose: 2 mg Morphine Sulfate (Ms Contin(*)) 15 mg PO BID [facility] Last Admin: 06/06/19 10:46 Dose: Not Given Ondansetron HCl (Zofran Inj*) 4 mg IV Q4H PRN PRN Reason: NAUSEA/VOMITING Pantoprazole Sodium (Protonix Iv*) 40 mg IV Q12H [facility] Last Admin: 06/06/19 11:18 Dose: 40 mg Prochlorperazine (Compazine Tab*) 10 mg PO Q6H PRN PRN Reason: NAUSEA Prochlorperazine Edisylate (Compazine Inj*) 5 mg IV Q6H PRN PRN Reason: NAUSEA/VOMITING Last Admin: 06/06/19 08:16 Dose: 5 mg Physical Exam: Constitutional: awake, alert, no distress, not diaphoretic Head: normocephalic, atraumatic Eyes: + pallor, no icterus ENT: DRY mucous membranes Neck: soft, supple, no jvd, no stridor CVS: tachy+, regular, no murmur Resp: bilateral air entry, no RRW, no acc muscle use Abdomen/GI: soft, nontender, nondistended, BS+ Ext/Msk: warm, pulses+, no edema Skin: intact, warm Neuro: awake, alert, moving all ext, oriented x3 Labs: Laboratory Results - last 24 hr 06/05/19 06/05/19 06/05/19 05:55 17:50 22:15 WBC Cancelled RBC Cancelled Hgb 7.0 L Cancelled Hct 20 L Cancelled MCV Cancelled MCH Cancelled MCHC Cancelled RDW Cancelled Plt Count Cancelled MPV Cancelled Neut % (Auto) Cancelled Lymph % (Auto) Cancelled Cavalier % (Auto) Cancelled Eos % (Auto) Cancelled Baso % (Auto) Cancelled Absolute Neuts (auto) Cancelled Absolute Lymphs (auto) Cancelled Absolute Monos (auto) Cancelled Absolute Eos (auto) Cancelled Absolute Basos (auto) Cancelled Absolute Nucleated RBC Cancelled CBC Comment Cancelled Nucleated RBC % Cancelled Diff Slide Review Cancelled Hypogranular Platelets Cancelled Clumped Platelets Cancelled Large Platelets Cancelled Giant Platelets Cancelled PT INR (Anticoag Therapy) Fibrinogen Sodium Potassium Chloride Carbon Dioxide Anion Gap BUN Creatinine Est GFR ( Amer) Est GFR (Non-Af Amer) BUN/Creatinine Ratio Glucose Calcium Phosphorus Magnesium Total Bilirubin AST ALT Alkaline Phosphatase Ammonia Total Protein Albumin Globulin Albumin/Globulin Ratio Blood Type O Positive Antibody Screen Negative Crossmatch See Detail 06/05/19 06/05/19 06/05/19 22:15 22:15 22:59 WBC 13.3 H RBC 2.17 L Hgb 7.1 L Hct 21 L MCV 95 H MCH 33 H MCHC 35 RDW 22 H Plt Count 73 L MPV 9.0 Neut % (Auto) 78.4 Lymph % (Auto) 8.7 Cavalier % (Auto) 7.2 Eos % (Auto) 5.2 Baso % (Auto) 0.5 Absolute Neuts (auto) 10.5 H Absolute Lymphs (auto) 1.2 Absolute Monos (auto) 1.0 H Absolute Eos (auto) 0.7 H Absolute Basos (auto) 0.1 Absolute Nucleated RBC 0.1 CBC Comment Nucleated RBC % 0.6 Diff Slide Review Hypogranular Platelets Clumped Platelets Large Platelets Giant Platelets PT Cancelled INR (Anticoag Therapy) Cancelled Fibrinogen Sodium Cancelled Potassium Cancelled Chloride Cancelled Carbon Dioxide Cancelled Anion Gap Cancelled BUN Cancelled Creatinine Cancelled Est GFR ( Amer) Cancelled Est GFR (Non-Af Amer) Cancelled BUN/Creatinine Ratio Cancelled Glucose Cancelled Calcium Cancelled Phosphorus Magnesium Total Bilirubin Cancelled AST Cancelled ALT Cancelled Alkaline Phosphatase Cancelled Ammonia Total Protein Cancelled Albumin Cancelled Globulin Cancelled Albumin/Globulin Ratio Cancelled Blood Type Antibody Screen Crossmatch 06/05/19 06/05/19 06/06/19 22:59 22:59 01:40 WBC RBC Hgb 8.7 L Hct 25 L MCV MCH MCHC RDW Plt Count MPV Neut % (Auto) Lymph % (Auto) Cavalier % (Auto) Eos % (Auto) Baso % (Auto) Absolute Neuts (auto) Absolute Lymphs (auto) Absolute Monos (auto) Absolute Eos (auto) Absolute Basos (auto) Absolute Nucleated RBC CBC Comment Nucleated RBC % Diff Slide Review Hypogranular Platelets Clumped Platelets Large Platelets Giant Platelets PT INR (Anticoag Therapy) 1.69 H Fibrinogen Sodium 137 Potassium 4.5 Chloride 111 Carbon Dioxide 21 L Anion Gap 5 BUN 32 H Creatinine 0.73 Est GFR ( Amer) 131.3 Est GFR (Non-Af Amer) 108.5 BUN/Creatinine Ratio 43.8 H Glucose 142 H Calcium 6.8 L Phosphorus Magnesium Total Bilirubin 1.80 H AST 70 H ALT 22 Alkaline Phosphatase 145 H Ammonia Total Protein 4.2 L Albumin 2.4 L Globulin 1.8 L Albumin/Globulin Ratio 1.3 Blood Type Antibody Screen Crossmatch 06/06/19 06/06/19 06/06/19 05:45 05:45 05:45 WBC 14.4 H RBC 2.63 L Hgb 8.7 L Hct 25 L MCV 94 MCH 33 H MCHC 35 RDW 20 H Plt Count 67 L MPV 9.3 Neut % (Auto) Lymph % (Auto) [place] % (Auto) Eos % (Auto) Baso % (Auto) Absolute Neuts (auto) Absolute Lymphs (auto) Absolute Monos (auto) Absolute Eos (auto) Absolute Basos (auto) Absolute Nucleated RBC CBC Comment Nucleated RBC % Diff Slide Review Hypogranular Platelets Clumped Platelets Large Platelets Giant Platelets PT INR (Anticoag Therapy) Fibrinogen Sodium 137 Potassium 4.0 Chloride 111 Carbon Dioxide 19 L Anion Gap 7 BUN 35 H Creatinine 0.82 Est GFR ( Amer) 114.8 Est GFR (Non-Af Amer) 94.9 BUN/Creatinine Ratio 42.7 H Glucose 159 H Calcium 7.4 L Phosphorus 2.5 Magnesium 2.1 Total Bilirubin 3.00 H AST 90 H ALT 29 Alkaline Phosphatase 163 H Ammonia 120 H Total Protein 4.7 L Albumin 2.6 L Globulin 2.1 Albumin/Globulin Ratio 1.2 Blood Type Antibody Screen Crossmatch 06/06/19 06/06/19 05:45 10:28 WBC RBC Hgb 8.5 L Hct 24 L MCV MCH MCHC RDW Plt Count MPV Neut % (Auto) Lymph % (Auto) [place]alier % (Auto) Eos % (Auto) Baso % (Auto) Absolute Neuts (auto) Absolute Lymphs (auto) Absolute Monos (auto) Absolute Eos (auto) Absolute Basos (auto) Absolute Nucleated RBC CBC Comment Nucleated RBC % Diff Slide Review Hypogranular Platelets Clumped Platelets Large Platelets Giant Platelets PT INR (Anticoag Therapy) 1.63 H Fibrinogen 144.9 Sodium Potassium Chloride Carbon Dioxide Anion Gap BUN Creatinine Est GFR ( Amer) Est GFR (Non-Af Amer) BUN/Creatinine Ratio Glucose Calcium Phosphorus Magnesium Total Bilirubin AST ALT Alkaline Phosphatase Ammonia Total Protein Albumin Globulin Albumin/Globulin Ratio Blood Type Antibody Screen Crossmatch Imaging: cxr 06/05 - TLC in place; no infiltrates Assessment: 64y M w/pmhx of Multiple Myeloma on chemo/radation tx, h/o Hep C, Cirrhosis, esophageal varices ; patient comes to [facility] 06/05 for complaints of vomiting of blood yesterday. Hg was to 6.5, last being 12s in April and March. He was given PRBC. Today he had an EGD in AM which demonstrated varices but no acute source of bleeding identified. Continued on octreotide/PPI infusion. HE was stable throughout the day and then again this evening started to vomit up blood. He was ordered for 4 more PRBC, he became hypotensive. Dr Corbett came in, another EGD performed and after multiple looks a bleeding varice identified and banded. Patient is not intubated, sats okay, BP improved with levophed and PRBC transfusing. -Upper GI hemorrhage 2/2 to variceal hemorrhage -hypovolemic shock, improved -acute blood loss anemia -thrombocytopenia -Liver Cirrhosis Multiple Myeloma Plan: Neuro- -awake/alert -Delirium prec; avoid BDZ CVS- -BP stable; mild tachycardia this AM -hg stable -give NS 250cc bolus; check h/h again at 130pm -if further dropo may need PRBC +/- repeat EGD -Maintain MAP>65 Resp- -NC, no distress -Wean Fio2 to keep sat>92% -Bronchodilators PRN, Aspiration prec, Pulmonary Toilet ID- afebrile. no infectious etiology suspected. -CTX for SBP proph in setting of GIB (day#2) GI- -UGI bleed from esoph varices; s/p banding 06/05 -has some vomittign of blood this morning, dark in appearance -reglan/zofran/coompazine IV -check repeat cbc/inr -discussed with GI; may need repeat EGD today -cont octreotide -PPI IV BID -maintain hg7-8 -NPO Renal- -IVF PRN -strict I/O, replete to keep K>4, Mg>2 -hdez as indicated Heme- acute blood loss; hg 8.7; follow trend; transfuse to maintain 7-8 -check INR and plt again Endo- Maintain BG<200, insulin protocol as needed Musculsk- pressure ulcer prophylaxis. Bedrest. Wounds- none Nutrition- NPO DVT prophylaxis: SCD; no AC GI prophylaxis: PPI Central Line: no Arterial Line: no Hdez Cathetor: no Disposition: Patient requires Critical Care/ICU for UGI hemorrhage, acute blood loss anemia Patient Clinical Status: unstable, critical Code Status: full code Total Critical Care time is 40 minutes, excluding procedures/teaching Johnnie Diaz MD [employer] (Electronically Signed)
[2019-06-06 14:10] LABS: Hematocrit 24 % (42-52); Hemoglobin 8.3 g/dL (14.0-18.0); Mean Corpuscular HGB Conc 35 g/dL (31-36); Mean Corpuscular Hemoglobin 33 pg (27-31); Mean Corpuscular Volume 93 fL (80-94); Mean Platelet Volume 8.6 fL (7.4-10.4); Platelet Count 65 10^3/uL (150-450); Red Blood Count 2.55 10^6 /uL (4.18-5.48); Red Cell Distribution Width 20 % (10-15); White Blood Count 13.5 10^3/uL (3.5-10.8)
[2019-06-06 14:14] LABS: INR 1.84 (0.82-1.09)
[2019-06-06] MEDS: Ondansetron INJ* 2 MG/ML VIAL IV PRN ×2 (15:11→23:33)
[2019-06-06] MEDS: cefTRIAXone(*) 1 GM in NS 0.9% 50 ML* 50 ML IVPB SCH (16:00)
[2019-06-06] MEDS ORDERED: Phytonadione SUBCUT/IM Adult* 10 MG/ML AMP (IM or SQ not preferred route) SUBCUT ONE (18:19)
[2019-06-06] MEDS: Metoclopramide IV* 5 MG/ML 2 ML VIAL IV SLOW PU SCH (21:40)
[2019-06-06 22:24] LABS: Hematocrit 23 % (42-52); Mean Corpuscular HGB Conc 35 g/dL (31-36); Mean Corpuscular Hemoglobin 33 pg (27-31); Mean Corpuscular Volume 94 fL (80-94); Mean Platelet Volume 8.2 fL (7.4-10.4); Platelet Count 62 10^3/uL (150-450); Red Blood Count 2.43 10^6 /uL (4.18-5.48); Red Cell Distribution Width 21 % (10-15); White Blood Count 14.1 10^3/uL (3.5-10.8)
[2019-06-06 22:31] LABS: ABS Eosinophils 0.3 10^3/ul (0-0.6); ABS Lymphocytes 1.3 10^3/ul (1.0-4.8); ABS Monocytes 1.2 10^3/ul (0-0.8); ABS Neutrophils 11.4 10^3/ul (1.5-7.7)
[2019-06-06 22:57] LABS: Polychromasia 2+
[2019-06-06] MEDS: Norepinephrine VIAL 8 MG in NS 0.9% 500 ML IV SCH (23:35)
[2019-06-07] MEDS: Morphine INJ* 2 MG/ML 1 ML SYRINGE (TWO MG - NEW SYRINGE VERSION) IV PRN (00:25)
[2019-06-07] MEDS: Morphine 4 MG/ML VIAL (1 ml) 4 MG/ML VIAL IV PRN ×6 (01:30→22:36)
[2019-06-07] MEDS: Octreotide Acetate* 500 MCG in NS 0.9% 100 ML* 100 ML IV SCH ×4 (01:50→22:36)
[2019-06-07 05:21] LABS: Hematocrit 22 % (42-52); Hemoglobin 7.5 g/dL (14.0-18.0); Mean Corpuscular HGB Conc 35 g/dL (31-36); Mean Corpuscular Hemoglobin 33 pg (27-31); Mean Corpuscular Volume 95 fL (80-94); Mean Platelet Volume 8.6 fL (7.4-10.4); Platelet Count 60 10^3/uL (150-450); Red Blood Count 2.29 10^6 /uL (4.18-5.48); Red Cell Distribution Width 21 % (10-15); White Blood Count 14.2 10^3/uL (3.5-10.8)
[2019-06-07 05:26] LABS: INR 1.65 (0.82-1.09)
[2019-06-07 05:41] LABS: Albumin 2.6 g/dL (3.2-5.2); Albumin/Globulin Ratio 1.1 (1-3); BUN/Creatinine Ratio 40.4 (8-20); Calcium 8.3 mg/dL (8.6-10.3); EGFR African American 92.4 (>60); EGFR Non-African American 76.3 (>60); Globulin 2.3 g/dL (2-4); Magnesium 2.4 mg/dL (1.9-2.7); Phosphorus 2.3 mg/dL (2.5-5.0); Total Bilirubin 2.5 mg/dL (0.2-1.0); Total Protein 4.9 g/dL (6.4-8.9)
[2019-06-07] MEDS: Metoclopramide IV* 5 MG/ML 2 ML VIAL IV SLOW PU SCH ×2 (08:15→20:37)
[2019-06-07] MEDS: Acyclovir* 400 MG TAB PO SCH ×2 (08:16→20:37)
[2019-06-07] MEDS: Morphine TAB Extended Release (*) 15 MG TAB.ER PO SCH ×2 (08:39→20:37)
[2019-06-07] MEDS: Pantoprazole IV* 40 MG IV SCH ×2 (08:46→20:37)
[2019-06-07 10:19] LABS: ABS Eosinophils 0.3 10^3/ul (0-0.6); ABS Lymphocytes 1.3 10^3/ul (1.0-4.8); ABS Neutrophils 12.7 10^3/ul (1.5-7.7); ABS Nucleated RBC 0.1 10^3/ul; Eosinophil % 2.2 %; Hematocrit 23 % (42-52); Hemoglobin 7.7 g/dL (14.0-18.0); Lymphocyte % 8.3 %; Mean Corpuscular HGB Conc 34 g/dL (31-36); Mean Corpuscular Hemoglobin 33 pg (27-31); Mean Corpuscular Volume 97 fL (80-94); Mean Platelet Volume 8.5 fL (7.4-10.4); Nucleated Red Blood Cells % 0.6; Platelet Count 66 10^3/uL (150-450); Red Blood Count 2.33 10^6 /uL (4.18-5.48); Red Cell Distribution Width 21 % (10-15); White Blood Count 15.4 10^3/uL (3.5-10.8)
[2019-06-07] MEDS: Ondansetron INJ* 2 MG/ML VIAL IV PRN ×2 (11:00→13:44)
--- NOTE | 2019-06-07 11:29 | PN ---
Progress Note - Progress Note Date of Service: 06/07/19 Note: Progress Note -- Critical Care 24 hour events -afebrile; BP 130-140s; tachycardic -confused at times; not restless -pulled out central line yesterday 2/2 to delirium -had 2 episodes of vomitting blood but dark; no further episodes overnight -no tranfusions needed -last hg 7.7 this morning; stable 7-8 range now Tele: sinus tachy Vitals: Vital Signs Temp 99.8 F 06/07/19 07:25 Pulse 103 06/07/19 11:08 Resp 16 06/07/19 11:08 BP 143/76 06/07/19 11:08 Pulse Ox 96 06/07/19 11:08 Intake & Output 06/06/19 06/07/19 06/07/19 18:59 06:59 18:59 Intake Total 471 585 Output Total 720 325 500 Balance -249 260 -500 Weight 77.4 kg Intake: IV Fluids 314 209 NS (0.9%) 314 209 Medicated IV 57 156 GEN - Octreotide 57 156 Oral 100 220 Output: Urine 425 325 500 Liquid Stool 180 Emesis 115 Other: # Bowel Movements 0 Estimated Stool Amount Small O2/Vent: NC Infusions: octreotide Current Medications: Hydrocodone Bitart/Acetaminophen ([place] 5-325 Tab*) 1 tab PO Q4H PRN PRN Reason: PAIN - MODERATE Acyclovir (Zovirax Tab*) 400 mg PO BID [facility] Last Admin: 06/07/19 08:16 Dose: 400 mg Ceftriaxone Sodium 1 gm/ (Sodium Chloride) 50 mls @ 200 mls/hr IVPB Q24H [facility] Last Admin: 06/06/19 16:00 Dose: 200 mls/hr Octreotide Acetate 500 mcg/ (Sodium Chloride) 101 mls @ 10.1 mls/hr IV Q10H [facility] ; Protocol Last Admin: 06/07/19 10:07 Dose: Not Given Norepinephrine Bitartrate 8 mg (/ Sodium Chloride) 500 mls @ 18.75 mls/hr IV Q24H [facility]; Protocol Last Admin: 06/06/19 23:35 Dose: Not Given Sodium Chloride (Ns 0.45% 1000 Ml Bag*) 1,000 mls @ 75 mls/hr IV PER RATE [facility] Stop: 06/08/19 01:19 Lactulose (Lactulose*) 30 ml PO TID [facility] Last Admin: 06/07/19 08:16 Dose: 30 ml Metoclopramide HCl (Reglan Iv*) 10 mg IV SLOW PU Q12H [facility] Last Admin: 06/07/19 08:15 Dose: 10 mg Morphine Sulfate (Ms Contin(*)) 15 mg PO BID [facility] Last Admin: 06/07/19 08:39 Dose: 15 mg Morphine Sulfate (Morphine 4 Mg/Ml Vial (1 Ml)) 4 mg IV Q2H PRN PRN Reason: PAIN - MILD Last Admin: 06/07/19 03:50 Dose: 4 mg Ondansetron HCl (Zofran Inj*) 4 mg IV Q4H PRN PRN Reason: NAUSEA/VOMITING Last Admin: 06/07/19 11:00 Dose: 4 mg Pantoprazole Sodium (Protonix Iv*) 40 mg IV Q12H [facility] Last Admin: 06/07/19 08:46 Dose: 40 mg Physical Exam: Constitutional: awake, alert, no distress, not diaphoretic Head: normocephalic, atraumatic Eyes: + pallor, no icterus ENT: DRY mucous membranes Neck: soft, supple, no jvd, no stridor CVS: tachy+, regular, no murmur Resp: bilateral air entry, no RRW, no acc muscle use Abdomen/GI: soft, nontender, mild distension, BS+ Ext/Msk: warm, pulses+, no edema Skin: intact, warm Neuro: awake, alert, oriented x2, moving all ext Labs: Laboratory Results - last 24 hr 06/05/19 06/06/19 06/06/19 05:55 14:00 14:00 WBC 13.5 H RBC 2.55 L Hgb 8.3 L Hct 24 L MCV 93 MCH 33 H MCHC 35 RDW 20 H Plt Count 65 L MPV 8.6 Neut % (Auto) Lymph % (Auto) [place] % (Auto) Eos % (Auto) Baso % (Auto) Absolute Neuts (auto) Absolute Lymphs (auto) Absolute Monos (auto) Absolute Eos (auto) Absolute Basos (auto) Absolute Nucleated RBC Immature Gran % Neutrophils % Band Neutrophils % Lymphocytes % Monocytes % Eosinophils % Metamyelocytes % Myelocytes % Nucleated RBC % Nucleated RBCs/100 WBC Normal RBC Morphology Polychromasia Anisocytosis INR (Anticoag Therapy) 1.84 H Sodium Potassium Chloride Carbon Dioxide Anion Gap BUN Creatinine Est GFR ( Amer) Est GFR (Non-Af Amer) BUN/Creatinine Ratio Glucose Calcium Phosphorus Magnesium Total Bilirubin AST ALT Alkaline Phosphatase Ammonia Total Protein Albumin Globulin Albumin/Globulin Ratio Blood Type O Positive Antibody Screen Negative Crossmatch See Detail 06/06/19 06/07/19 06/07/19 22:00 05:05 05:05 WBC 14.1 H 14.2 H RBC 2.43 L 2.29 L Hgb 8.0 L 7.5 L Hct 23 L 22 L MCV 94 95 H MCH 33 H 33 H MCHC 35 35 RDW 21 H 21 H Plt Count 62 L 60 L MPV 8.2 8.6 Neut % (Auto) Not Reportable Lymph % (Auto) Not Reportable [place] % (Auto) Not Reportable Eos % (Auto) Not Reportable Baso % (Auto) Not Reportable Absolute Neuts (auto) 11.4 H Absolute Lymphs (auto) 1.3 Absolute Monos (auto) 1.2 H Absolute Eos (auto) 0.3 Absolute Basos (auto) 0.0 Absolute Nucleated RBC 0.0 Immature Gran % 9.0 Neutrophils % 77.0 Band Neutrophils % 6.0 Lymphocytes % 10.0 Monocytes % 2.0 Eosinophils % 2.0 Metamyelocytes % 2.0 Myelocytes % 1.0 Nucleated RBC % Not Reportable Nucleated RBCs/100 WBC 2.0 H Normal RBC Morphology Not Reportable Polychromasia 2+ Anisocytosis 2+ INR (Anticoag Therapy) Sodium 139 Potassium 4.0 Chloride 114 H Carbon Dioxide 18 L Anion Gap 7 BUN 40 H Creatinine 0.99 Est GFR ( Amer) 92.4 Est GFR (Non-Af Amer) 76.3 BUN/Creatinine Ratio 40.4 H Glucose 140 H Calcium 8.3 L Phosphorus 2.3 L Magnesium 2.4 Total Bilirubin 2.50 H AST 92 H ALT 37 Alkaline Phosphatase 174 H Ammonia Total Protein 4.9 L Albumin 2.6 L Globulin 2.3 Albumin/Globulin Ratio 1.1 Blood Type Antibody Screen Crossmatch 06/07/19 06/07/19 06/07/19 05:05 08:34 08:51 WBC 15.4 H RBC 2.33 L Hgb 7.7 L Hct 23 L MCV 97 H MCH 33 H MCHC 34 RDW 21 H Plt Count 66 L MPV 8.5 Neut % (Auto) 82.6 Lymph % (Auto) 8.3 [place] % (Auto) 6.7 Eos % (Auto) 2.2 Baso % (Auto) 0.2 Absolute Neuts (auto) 12.7 H Absolute Lymphs (auto) 1.3 Absolute Monos (auto) 1.0 H Absolute Eos (auto) 0.3 Absolute Basos (auto) 0.0 Absolute Nucleated RBC 0.1 Immature Gran % Neutrophils % Band Neutrophils % Lymphocytes % Monocytes % Eosinophils % Metamyelocytes % Myelocytes % Nucleated RBC % 0.6 Nucleated RBCs/100 WBC Normal RBC Morphology Polychromasia Anisocytosis INR (Anticoag Therapy) 1.65 H Sodium Potassium Chloride Carbon Dioxide Anion Gap BUN Creatinine Est GFR ( Amer) Est GFR (Non-Af Amer) BUN/Creatinine Ratio Glucose Calcium Phosphorus Magnesium Total Bilirubin AST ALT Alkaline Phosphatase Ammonia 45 Total Protein Albumin Globulin Albumin/Globulin Ratio Blood Type Antibody Screen Crossmatch Imaging: cxr 06/05 - TLC in place; no infiltrates Assessment: 64y M w/pmhx of Multiple Myeloma on chemo/radation tx, h/o Hep C, Cirrhosis, esophageal varices ; patient comes to [facility] [place] 06/05 for complaints of vomiting of blood yesterday. Hg was to 6.5, last being 12s in April and March. He was given PRBC. Today he had an EGD in AM which demonstrated varices but no acute source of bleeding identified. Continued on octreotide/PPI infusion. HE was stable throughout the day and then again this evening started to vomit up blood. He was ordered for 4 more PRBC, he became hypotensive. Dr Corbett came in, another EGD performed and after multiple looks a bleeding varice identified and banded. Patient is not intubated, sats okay, BP improved with levophed and PRBC transfusing. -Upper GI hemorrhage 2/2 to variceal hemorrhage -hypovolemic shock, improved -acute blood loss anemia -thrombocytopenia -Liver Cirrhosis Multiple Myeloma Plan: Neuro- -awake/alert; confused -ammonia was 120 but improved with lactulose now -neurochecks, asp prec, fall prec -suspect metabolic dysfunction with bleeidng and acute hepatic decompensation -cont lactulose q8h -Delirium prec; avoid BDZ CVS- -BP stable; tachycardia -hg now 7.7 but no further bleeding since last episodes yesterday -Na and Cl elveated, BUn elevated; start 1/2 NS infusion since NPO also -monitor h/h -Maintain MAP>65 Resp- -NC, no distress -Wean Fio2 to keep sat>92% -Bronchodilators PRN, Aspiration prec ID- afebrile. no infectious etiology suspected. -CTX for SBP proph in setting of GIB (day#3) GI- -UGI bleed from esoph varices; s/p banding 06/05 -last vomitting yesterday; none further overnight -trend h/h -GI following; ?repeat EGD if further bleeding -INR down; LFTs down; bili down -reglan/zofran/coompazine IV -discussed with GI; may need repeat EGD today -cont octreotide -PPI IV BID -maintain hg7-8 -NPO; ice chips for now -will need TIPS for definitive tx for variceal bleeding -will need BB restarted also -pending portal US for thrombosis eval -cont lactulose q8h; ammonia level decreased but still confused Renal- -BUn elevated, Chloride elevated, tachycardic; start 1/2 NS 75cc/hr x1 liter and re-eval -strict I/O, replete to keep K>4, Mg>2 -hdez as indicated Heme- acute blood loss; hg 7.7; follow trend; transfuse to maintain 7-8 -INR 1.6; plt 60-70s; bleeding appears to have slowed; avoiding further transfusion for now Endo- Maintain BG<200, insulin protocol as needed Musculsk- pressure ulcer prophylaxis. Bedrest. Wounds- none Nutrition- NPO DVT prophylaxis: SCD; no AC GI prophylaxis: PPI Central Line: no Arterial Line: no Hdez Cathetor: no Disposition: Patient requires Critical Care/ICU for UGI hemorrhage, acute blood loss anemia Patient Clinical Status: guarded, critical Code Status: full code Total Critical Care time is 40 minutes, excluding procedures/teaching Johnnie Diaz MD [employer] (Electronically Signed)
[2019-06-07] MEDS ORDERED: NS 0.45% 1000 ML BAG* 1,000 ML IV SCH (12:00)
--- NOTE | 2019-06-07 12:00 | PN ---
Progress Note - Progress Note Date of Service: 06/07/19 SOAP: Subjective: [This is a 64 yo male well known to the oncology service for a relatively new diagnosis of multiple myeloma. He received palliative radiation to a painful R hip lesion and started chemotherapy 06/01/19. He presented with hematemesis and associated hemmorhagic shock found to have a variceal bleed now s/p banding. He has a history of Hep C previously treated with Harvoni and associated cirrhosis and a prior variceal bleed. Patient reports feeling relatively well today. He has been intermittently confused. ] Objective: [ Vital Signs: Temp Pulse Resp BP Pulse Ox 99.4 F 103 16 143/76 96 06/07/19 11:47 06/07/19 11:08 06/07/19 11:08 06/07/19 11:08 06/07/19 11:08 Hydrocodone Bitart/Acetaminophen ([place] 5-325 Tab*) 1 tab PO Q4H PRN PRN Reason: PAIN - MODERATE Acyclovir (Zovirax Tab*) 400 mg PO BID BLAYNE Last Admin: 06/07/19 08:16 Dose: 400 mg Ceftriaxone Sodium 1 gm/ (Sodium Chloride) 50 mls @ 200 mls/hr IVPB Q24H BLAYNE Last Admin: 06/06/19 16:00 Dose: 200 mls/hr Octreotide Acetate 500 mcg/ (Sodium Chloride) 101 mls @ 10.1 mls/hr IV Q10H BLAYNE ; Protocol Last Admin: 06/07/19 10:07 Dose: Not Given Norepinephrine Bitartrate 8 mg (/ Sodium Chloride) 500 mls @ 18.75 mls/hr IV Q24H BLAYNE; Protocol Last Admin: 06/06/19 23:35 Dose: Not Given Sodium Chloride (Ns 0.45% 1000 Ml Bag*) 1,000 mls @ 75 mls/hr IV PER RATE BLAYNE Stop: 06/08/19 01:19 Lactulose (Lactulose*) 30 ml PO TID BLAYNE Last Admin: 06/07/19 08:16 Dose: 30 ml Metoclopramide HCl (Reglan Iv*) 10 mg IV SLOW PU Q12H BLAYNE Last Admin: 06/07/19 08:15 Dose: 10 mg Morphine Sulfate (Ms Contin(*)) 15 mg PO BID BLAYNE Last Admin: 06/07/19 08:39 Dose: 15 mg Morphine Sulfate (Morphine 4 Mg/Ml Vial (1 Ml)) 4 mg IV Q2H PRN PRN Reason: PAIN - MILD Last Admin: 06/07/19 03:50 Dose: 4 mg Ondansetron HCl (Zofran Inj*) 4 mg IV Q4H PRN PRN Reason: NAUSEA/VOMITING Last Admin: 06/07/19 11:00 Dose: 4 mg Pantoprazole Sodium (Protonix Iv*) 40 mg IV Q12H BLAYNE Last Admin: 06/07/19 08:46 Dose: 40 mg Laboratory Results - last 24 hr 06/05/19 06/06/19 06/06/19 05:55 14:00 14:00 WBC 13.5 H RBC 2.55 L Hgb 8.3 L Hct 24 L MCV 93 MCH 33 H MCHC 35 RDW 20 H Plt Count 65 L MPV 8.6 Neut % (Auto) Lymph % (Auto) [place] % (Auto) Eos % (Auto) Baso % (Auto) Absolute Neuts (auto) Absolute Lymphs (auto) Absolute Monos (auto) Absolute Eos (auto) Absolute Basos (auto) Absolute Nucleated RBC Immature Gran % Neutrophils % Band Neutrophils % Lymphocytes % Monocytes % Eosinophils % Metamyelocytes % Myelocytes % Nucleated RBC % Nucleated RBCs/100 WBC Normal RBC Morphology Polychromasia Anisocytosis INR (Anticoag Therapy) 1.84 H Sodium Potassium Chloride Carbon Dioxide Anion Gap BUN Creatinine Est GFR ( Amer) Est GFR (Non-Af Amer) BUN/Creatinine Ratio Glucose Calcium Phosphorus Magnesium Total Bilirubin AST ALT Alkaline Phosphatase Ammonia Total Protein Albumin Globulin Albumin/Globulin Ratio Blood Type O Positive Antibody Screen Negative Crossmatch See Detail 06/06/19 06/07/19 06/07/19 22:00 05:05 05:05 WBC 14.1 H 14.2 H RBC 2.43 L 2.29 L Hgb 8.0 L 7.5 L Hct 23 L 22 L MCV 94 95 H MCH 33 H 33 H MCHC 35 35 RDW 21 H 21 H Plt Count 62 L 60 L MPV 8.2 8.6 Neut % (Auto) Not Reportable Lymph % (Auto) Not Reportable [place] % (Auto) Not Reportable Eos % (Auto) Not Reportable Baso % (Auto) Not Reportable Absolute Neuts (auto) 11.4 H Absolute Lymphs (auto) 1.3 Absolute Monos (auto) 1.2 H Absolute Eos (auto) 0.3 Absolute Basos (auto) 0.0 Absolute Nucleated RBC 0.0 Immature Gran % 9.0 Neutrophils % 77.0 Band Neutrophils % 6.0 Lymphocytes % 10.0 Monocytes % 2.0 Eosinophils % 2.0 Metamyelocytes % 2.0 Myelocytes % 1.0 Nucleated RBC % Not Reportable Nucleated RBCs/100 WBC 2.0 H Normal RBC Morphology Not Reportable Polychromasia 2+ Anisocytosis 2+ INR (Anticoag Therapy) Sodium 139 Potassium 4.0 Chloride 114 H Carbon Dioxide 18 L Anion Gap 7 BUN 40 H Creatinine 0.99 Est GFR ( Amer) 92.4 Est GFR (Non-Af Amer) 76.3 BUN/Creatinine Ratio 40.4 H Glucose 140 H Calcium 8.3 L Phosphorus 2.3 L Magnesium 2.4 Total Bilirubin 2.50 H AST 92 H ALT 37 Alkaline Phosphatase 174 H Ammonia Total Protein 4.9 L Albumin 2.6 L Globulin 2.3 Albumin/Globulin Ratio 1.1 Blood Type Antibody Screen Crossmatch 06/07/19 06/07/19 06/07/19 05:05 08:34 08:51 WBC 15.4 H RBC 2.33 L Hgb 7.7 L Hct 23 L MCV 97 H MCH 33 H MCHC 34 RDW 21 H Plt Count 66 L MPV 8.5 Neut % (Auto) 82.6 Lymph % (Auto) 8.3 [place] % (Auto) 6.7 Eos % (Auto) 2.2 Baso % (Auto) 0.2 Absolute Neuts (auto) 12.7 H Absolute Lymphs (auto) 1.3 Absolute Monos (auto) 1.0 H Absolute Eos (auto) 0.3 Absolute Basos (auto) 0.0 Absolute Nucleated RBC 0.1 Immature Gran % Neutrophils % Band Neutrophils % Lymphocytes % Monocytes % Eosinophils % Metamyelocytes % Myelocytes % Nucleated RBC % 0.6 Nucleated RBCs/100 WBC Normal RBC Morphology Polychromasia Anisocytosis INR (Anticoag Therapy) 1.65 H Sodium Potassium Chloride Carbon Dioxide Anion Gap BUN Creatinine Est GFR ( Amer) Est GFR (Non-Af Amer) BUN/Creatinine Ratio Glucose Calcium Phosphorus Magnesium Total Bilirubin AST ALT Alkaline Phosphatase Ammonia 45 Total Protein Albumin Globulin Albumin/Globulin Ratio Blood Type Antibody Screen Crossmatch Exam: Gen: Ill appearing 64 yo male in NAD HEENT: poor dentition CV: RRR no m/r/g Resp: CTA, no w/c/r Abd: distended, nonTTP Ext: no edema] Assessment: [64 yo male with multiple myeloma and h/o Hep C with cirrhosis who is admitted with a variceal bleed now s/p banding with a relatively stable Hgb over the last 24h.] Plan: [1. Variceal bleed with hemorrhagic shock - management per GI/nurses supervisor 2. Multiple myeloma - C1D1 RVD 06/01/19 - plan to hold additional chemotherapy until he has recovered from this acute episode to avoid inducing additional cytopenias - will follow up in oncology clinic following discharge to develop plan for restarting therapy ]
[2019-06-07] MEDS: HYDROcodone/ACETAMIN 5-325 MG* 1 TAB PO PRN (15:07)
--- NOTE | 2019-06-07 15:24 | PN ---
Progress Note - Progress Note Date of Service: 06/07/19 Note: GASTROENTEROLOGY FOLLOW-UP IE/S: - Hgb slowly drifted down a bit but now stable over past two checks. - No hematemesis in 36 hours - Bowel movements (several) yesterday were not bloody. - Remains persistently tachycardic with Tm 99.8 - No complaints. Denies chest pain, shortness of breath, cough, abdominal pain. O: SBP 140's, HR 100's-110's GEN: Pale, ill-appearing gentleman. NAD. Interactive. HEENT: MMM CV: Tachycardic PULM: Breathing comfortably ABD: NT/ND, softly distended NEURO: No asterixis. EXT: No significant edema. No calf tenderness or swelling. Labs reviewed. INR 1.6 range. WBC 14-15 range. Hgb 8 > 7.5 > 7.7. Albumin <3. Bilirubin peaked yesterday, down slightly today. A/P: 64yM w/ Hep C Cirrhosis c/b variceal bleed (2011) and multiple myeloma on Revlimid, who is admitted with variceal bleed. Status-post banding of actively spurting varix on 06/05 with hemostasis. No evidence of ongoing bleeding. H/H essentially stable. Remains persistently elevated and borderline febrile. Differential for the elevated HR and borderline elevated temp should include: sepsis/infection and PE (two pro- thrombotic conditions in MM and cirrhosis). - Advance to clears - Follow CBC every 8 hours. CMP and INR daily. - Continue Octreotide gtt (x 72 hours -- d/c Mon at [place]) - Continue Ceftriaxone daily x 7 days (can switch to po abx once clinically improving) for SBP prophylaxis given UGIB in cirrhotic patient - Continue IV PPI Q12H - Avoid over-resuscitation. Hgb should be within 7-9 range. - Please obtain liver US w/ doppler to rule-out portal vein thrombosis given variceal bleed. - Low threshold to consider infectious work-up (including diagnostic paracentesis if ascites present on US) and/or CT PE if clinical change or tachycardia worsens. - Will need outpatient GI follow-up GI will continue to follow. Please call with any acute clinical change. Ivette Corbett MD Gastroenterology
[2019-06-07] MEDS: cefTRIAXone(*) 1 GM in NS 0.9% 50 ML* 50 ML IVPB SCH (16:15)
[2019-06-07] MEDS ORDERED: NS 0.9% 250 ML* 250 ML IVPB ONE (16:15)
[2019-06-07] MEDS ORDERED: diPHENhydraMINE IV* 50 MG/ML 1 ml VIAL (BENADRYL) ONE (20:27)
[2019-06-07] MEDS ORDERED: diPHENhydraMINE IV* 50 MG/ML 1 ml VIAL (BENADRYL) IV ONE (20:30)
[2019-06-07] MEDS: Norepinephrine VIAL 8 MG in NS 0.9% 500 ML IV SCH (23:55)
[2019-06-08 01:01] LABS: Urine Appearance Clear; Urine Bacteria Absent (Absent); Urine Bilirubin Negative (Negative); Urine Blood 3+ (Negative); Urine Color Amber; Urine Glucose Negative (Negative); Urine Ketones Negative (Negative); Urine Nitrite Negative (Negative); Urine Protein Negative (Negative); Urine Red Blood Cell 3+(>10/hpf) (Absent); Urine Specific Gravity 1.021 (1.010-1.030); Urine Squamous Epithelial Cell Present (Absent); Urine Urobilinogen Negative (Negative); Urine White Blood Cell 2+(11-20/hpf) (Absent)
[2019-06-08] MEDS: Morphine 4 MG/ML VIAL (1 ml) 4 MG/ML VIAL IV PRN (01:45)
[2019-06-08 07:04] LABS: Hematocrit 20 % (42-52); Hemoglobin 6.9 g/dL (14.0-18.0); Mean Corpuscular HGB Conc 34 g/dL (31-36); Mean Corpuscular Hemoglobin 34 pg (27-31); Mean Corpuscular Volume 99 fL (80-94); Mean Platelet Volume 8.4 fL (7.4-10.4); Platelet Count 57 10^3/uL (150-450); Red Blood Count 2.03 10^6 /uL (4.18-5.48); Red Cell Distribution Width 21 % (10-15); White Blood Count 12.5 10^3/uL (3.5-10.8)
[2019-06-08 07:14] LABS: INR 1.27 (0.82-1.09)
[2019-06-08 07:31] LABS: Albumin 2.8 g/dL (3.2-5.2); Albumin/Globulin Ratio 1.2 (1-3); Calcium 8.1 mg/dL (8.6-10.3); EGFR African American 91.3 (>60); EGFR Non-African American 75.5 (>60); Globulin 2.3 g/dL (2-4); Magnesium 2.4 mg/dL (1.9-2.7); Phosphorus 2.3 mg/dL (2.5-5.0); Potassium 3.6 mmol/L (3.5-5.0); Total Bilirubin 2.8 mg/dL (0.2-1.0); Total Protein 5.1 g/dL (6.4-8.9)
[2019-06-08] MEDS: Octreotide Acetate* 500 MCG in NS 0.9% 100 ML* 100 ML IV SCH (09:27)
[2019-06-08] MEDS: Acyclovir* 400 MG TAB PO SCH ×2 (09:47→20:23)
[2019-06-08] MEDS: Morphine TAB Extended Release (*) 15 MG TAB.ER PO SCH ×2 (09:48→20:23)
[2019-06-08] MEDS: Pantoprazole IV* 40 MG IV SCH (09:48)
[2019-06-08] MEDS: Metoclopramide IV* 5 MG/ML 2 ML VIAL IV SLOW PU SCH (09:48)
--- NOTE | 2019-06-08 12:45 | PN ---
Date of Service: 06/08/13 Critical Care Services: Patient is alert and oriented this AM. No hematemesis or hematochezia. Hb down from 7.7 to 6.9, but this may be clinically insignificant. Vital Signs: Temp Pulse Resp BP SpO2 FiO2 99.7 F 104 20 133/62 98 Physical Exam: Gen:Alert, oritnted, seems comfortable Lungs:Clear Cardiac: Reg rhythm Abdomen:Not distended Extremities:No asterixis. Has trace-1+ edema throughout Fluid Balance (Past 24 Hours): 06/06/19 06/07/19 06/08/19 06:59 06:59 06:59 Intake Total 3577 1056 1465 Output Total 1100 1045 1940 Balance 0147 11 -475 Weight 166 lb 170 lb 168 lb Intake: IV Fluids 2943 523 593 NS (0.9%) 2893 523 593 Medicated IV 421 213 222 CC - Norepinephrine/ 50 Levophed GEN - Octreotide 371 213 222 Oral 0 320 650 Fresh Frozen Plasma 213 Output: Urine 1100 750 620 Vel[place] 345 Straight Cath 375 Residual 600 Velarde 16 Fr Temperature 600 Probe Liquid Stool 180 Emesis 115 Other: Estimated Void Medium Date of Last Bowel 06/06/19 06/07/19 Movement # Bowel Movements 1 0 1 Estimated Stool Amount Medium Small Medium # Voids 1 Labs: 06/08/19 06/08/19 06/08/19 06:44 06:44 06:44 WBC 12.5 RBC 2.03 L Hgb 6.9 L Hct 20 L MCV 99 H MCH 34 H MCHC 34 RDW 21 H Plt Count 57 L MPV 8.4 Hem Pathologist Commnt INR (Anticoag Therapy) Sodium 141 Potassium 3.6 Chloride 115 Carbon Dioxide 18 Anion Gap 8 BUN 40 H Creatinine 1.00 Glucose 129 H Calcium 8.1 L Phosphorus 2.3 L Magnesium 2.4 Total Bilirubin 2.80 H AST 85 H ALT 40 Alkaline Phosphatase 185 H Ammonia 43 Total Protein 5.1 L Albumin 2.8 L Globulin 2.3 Albumin/Globulin Ratio 1.2 Urine Color Urine Appearance Urine pH Ur Specific Silt Urine Protein Urine Ketones Urine Blood Urine Nitrate Urine Bilirubin Urine Urobilinogen Ur Leukocyte Esterase Urine WBC (Auto) Urine RBC (Auto) Ur Squamous Epith Cells Urine Bacteria Hyaline Casts Urine Glucose Blood Type Antibody Screen Crossmatch Studies: Portal vein ultrasound - Normal flow -There is an echogenic area at bifurcation of main and left portal veins, but it is not obstructive and thus is unlikely to be a source of varices. Nutrition: Oral diet Impression: No evidence of active GI bleeding or hepatic encephalopathy. Mild tachycardia may be residual from bleed, but could also be a sign of a cardiomyopathy from chemoRx or thiamine deficiency ([id number]).The drop in Hb may be dilutional. The platelet count is low, but not low enough to warrant platelet transfusion. Plan: 1. Repeat Hb, Hct today - if no further drop, can transfer out of ICU. 2. D/C octreotide 3. Check plasma thiamine level 4. Start beta bere (to prevent rebleeding) in 3- 5 days. 5. Oncology will decide about resuming chemoRx. Critical Care Time: 40 minutes
[2019-06-08 14:01] LABS: Hematocrit 21 % (42-52); Hemoglobin 7.2 g/dL (14.0-18.0)
[2019-06-08] MEDS: HYDROcodone/ACETAMIN 5-325 MG* 1 TAB PO PRN (18:26)
[2019-06-09] MEDS: HYDROcodone/ACETAMIN 5-325 MG* 1 TAB PO PRN ×3 (01:00→18:46)
[2019-06-09 07:02] LABS: INR 1.21 (0.82-1.09)
[2019-06-09 07:09] LABS: Albumin 2.7 g/dL (3.2-5.2); Albumin/Globulin Ratio 1.2 (1-3); BUN/Creatinine Ratio 35.4 (8-20); EGFR African American 114.8 (>60); EGFR Non-African American 94.9 (>60); Globulin 2.3 g/dL (2-4); Magnesium 2.1 mg/dL (1.9-2.7); Phosphorus 2.1 mg/dL (2.5-5.0); Potassium 3.5 mmol/L (3.5-5.0); Total Bilirubin 3.2 mg/dL (0.2-1.0)
[2019-06-09 07:23] LABS: Hematocrit 20 % (42-52); Hemoglobin 6.9 g/dL (14.0-18.0); Mean Corpuscular HGB Conc 35 g/dL (31-36); Mean Corpuscular Hemoglobin 35 pg (27-31); Mean Corpuscular Volume 101 fL (80-94); Mean Platelet Volume 8.1 fL (7.4-10.4); Platelet Count 49 10^3/uL (150-450); Red Blood Count 1.97 10^6 /uL (4.18-5.48); Red Cell Distribution Width 21 % (10-15); White Blood Count 10.4 10^3/uL (3.5-10.8)
[2019-06-09] MEDS: Morphine TAB Extended Release (*) 15 MG TAB.ER PO SCH ×2 (08:39→20:26)
[2019-06-09] MEDS: Acyclovir* 400 MG TAB PO SCH ×2 (08:39→20:26)
[2019-06-09] MEDS: Pantoprazole TAB * 40 MG TAB PO SCH (08:39)
[2019-06-09] MEDS ORDERED: Potassium Chlor TAB* 20 MEQ TAB.ER PO ONE (14:56)
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
[2019-06-09] MEDS ORDERED: Magnesium Hydroxide LIQ* 30 ML UDC PO PRN (20:53)
[2019-06-09] MEDS ORDERED: Senna TAB PO PRN (20:53)
[2019-06-09] MEDS ORDERED: cefTRIAXone(*) 1 GM in NS 0.9% 50 ML* 50 ML IVPB SCH (22:00)
[2019-06-10] MEDS: HYDROcodone/ACETAMIN 5-325 MG* 1 TAB PO PRN ×4 (01:13→18:06)
[2019-06-10 06:29] LABS: Hematocrit 23 % (42-52); Mean Corpuscular HGB Conc 34 g/dL (31-36); Mean Corpuscular Hemoglobin 35 pg (27-31); Mean Corpuscular Volume 101 fL (80-94); Mean Platelet Volume 8.2 fL (7.4-10.4); Platelet Count 50 10^3/uL (150-450); Red Blood Count 2.32 10^6 /uL (4.18-5.48); Red Cell Distribution Width 19 % (10-15); White Blood Count 10.3 10^3/uL (3.5-10.8)
[2019-06-10 06:42] LABS: BUN/Creatinine Ratio 31.8 (8-20); Calcium 8.1 mg/dL (8.6-10.3); EGFR African American 147.5 (>60); EGFR Non-African American 121.9 (>60); Potassium 3.9 mmol/L (3.5-5.0)
[2019-06-10] MEDS: Pantoprazole TAB * 40 MG TAB PO SCH (09:31)
[2019-06-10] MEDS: Morphine TAB Extended Release (*) 15 MG TAB.ER PO SCH (09:31)
[2019-06-10] MEDS: Acyclovir* 400 MG TAB PO SCH (09:32)
[2019-06-10] MEDS ORDERED: Spironolactone TAB* 25 MG PO SCH (11:15)
[2019-06-10] MEDS ORDERED: Furosemide TAB* 20 MG PO SCH (12:00)
[2019-06-10 16:13] VITALS: BP 127/50
--- NOTE | 2019-06-10 18:20 | DS ---
Resident Discharge Summary Discharge Summary: Date of Admission: 06/05/19 Date of Discharge: 06/10/2019 Admitting MD: Re Mosley MD Attending MD: Bernie Blanchard MD Primary Care Physician: Carol Palmer MD Home Medications Medication Instructions Recorded Confirmed Type Acyclovir [Zovirax] 400 mg PO BID 06/05/19 06/05/19 History Dexamethasone [Decadron] 4 mg PO WEEKLY 06/05/19 06/05/19 History Hydrocodone/Acetaminophen 1 tab PO Q4HR 06/05/19 06/05/19 History [Hydrocodone-Acetamin 5-325 mg] Lenalidomide [Revlimid] 25 mg PO DAILY 06/05/19 06/05/19 History Morphine Sulfate [Ms Contin] 15 mg PO BID 06/05/19 06/05/19 History Prochlorperazine TAB* [Compazine 10 mg PO Q6HR 06/05/19 06/05/19 History Tab*] Ciprofloxacin TAB* [Cipro 500 MG 500 mg PO BID #6 tab 06/10/19 Rx TAB*] Furosemide TAB* [Lasix TAB*] 20 mg PO DAILY #30 tab 06/10/19 Rx Lactulose* 30 ml PO TID #900 ml 06/10/19 Rx Nadolol TAB* [[place] TAB*] 20 mg PO DAILY #30 tab 06/10/19 Rx Pantoprazole TAB * [Protonix TAB*] 40 mg PO DAILY #30 tab 06/10/19 Rx Spironolactone TAB* [Aldactone TAB 25 mg PO DAILY #30 tab 06/10/19 Rx 25 MG*] Disposition: Home Condition: Improved Primary Diagnosis: 1. Decompensated Cirrhosis with variceal bleed s/p Banding. 2. Multiple Myeloma 3. Constipation Diagnostic Imaging: Chest X-Ray: Lytic lesion with soft tissue mass at the right 5th rib and fracture of right 7th rib. Lungs clear. Portal US: Echogenic material in junction between main portal vein and left portal vein probably Thrombus. Moderate ascites noted. Pertinent Laboratory Results: WBC: 5.5 on admission. 10.3 on discharge HgB: 6.5 on admission. 8.0 on discharge. Platelet: 56 on admission, 50 on discharge Ammonia: 106 on presentation, normal on discharge. Creatinine: 0.66 INR; 1.21 Hospital Course: 64 y/o M with PMH of Hepatits C(cured), variceal bleed and Multiple Myeloma( recently diagnosed; on chemo and radiotherapy) presented with Vomiting of blood ; which was red in color, 4 episodes. No any abdominal pain, fever, dizziness or passing out. He was started on octreotide and protonix drip.Patient was tachycardic. Admitted to ICU, IV fluid resuscitation done. 2 U of PRBC and 1 UNIT OF ffp given. IV CEFTRIAXONE started for SBP Prophylaxis. EGD showed varices. Recurrent hematemesis so urgent EGD done again and banding done. 1 U of PRBC transfused. Patient was transferred to floor after 4 days of ICU stay. 1 U of PRBC transfused again as his hb was low. On discharge his hb was 8 and patient was eating and doing well. Follow Up Instructions: F/U with PCP in 1-2 weeks. F/U with GI in 1-2 weeks. Advised to avoid NSAIDS. and eat low salt and high fiber diet. In case of an emergency or after clinic hours, please go to your nearest Emergency Department. You may also call the [facility] coating machine operator helper at ( [phone].
== END 2019-06-10 18:50 | disposition home health service (06) ==
LOC: ED 04:54 → ICU 07:56 → MED 06-08 16:25
PROVIDERS: ADMIT Internal Medicine; ATTEND Internal Medicine
PROC: 06L38CZ Occlusion of Esophageal Vein with Extraluminal Device, Via Natural or Artificial Opening Endoscopic (ICD-10-PCS; principal; 2019-06-05)
PROC: 30233N1 Transfusion of Nonautologous Red Blood Cells into Peripheral Vein, Percutaneous Approach (ICD-10-PCS; 2019-06-05)
PROC: 30233K1 Transfusion of Nonautologous Frozen Plasma into Peripheral Vein, Percutaneous Approach (ICD-10-PCS; 2019-06-05)
PROC: 0DJ08ZZ Inspection of Upper Intestinal Tract, Via Natural or Artificial Opening Endoscopic (ICD-10-PCS; 2019-06-05)
PROC: 05HM33Z Insertion of Infusion Device into Right Internal Jugular Vein, Percutaneous Approach (ICD-10-PCS; 2019-06-05)
DX: K74.60 Unspecified cirrhosis of liver (principal); I85.11 Secondary esophageal varices with bleeding; R57.1 Hypovolemic shock; C90.00 Multiple myeloma not having achieved remission; K76.6 Portal hypertension; D62 Acute posthemorrhagic anemia; K59.00 Constipation, unspecified; K44.9 Diaphragmatic hernia without obstruction or gangrene; K31.89 Other diseases of stomach and duodenum; D69.6 Thrombocytopenia, unspecified; R00.0 Tachycardia, unspecified; Z87.442 Personal history of urinary calculi; Z80.42 Family history of malignant neoplasm of prostate; Z86.19 Personal history of other infectious and parasitic diseases; Z92.3 Personal history of irradiation; Z87.891 Personal history of nicotine dependence; Z92.21 Personal history of antineoplastic chemotherapy; Z83.79 Family history of other diseases of the digestive system; Z79.891 Long term (current) use of opiate analgesic
CPT/HCPCS: 36415; 71045; 80048; 80053; 81003; 81015; 82140; 82270; 83735; 84100; 85014; 85018; 85025; 85027; 85060; 85384; 85610; 85730; 86850; 86900; 86901; 86922; 86927; 87086; 87641; 93005; 93975; 99156; 99157; 99232; 99284; A9270-GY; G8978-GP-CJ; G8979-GP-CH; G8987-GO-CI; G8988-GO-CI; G8989-GO-CI; J0696; J0780; J1200; J2250; J2270; J2354; J2405; J2765; J3010; J3430; P9017; P9040

== ENCOUNTER 2019-06-19 19:48 | Inpatient (IN) | payer OTHER ==
[2019-06-19] MEDS ORDERED: NS 0.9% 1000 ML** 1,000 ML IV ONE (20:07)
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
[2019-06-19] MEDS ORDERED: Lidocaine 2% EPI 1:200000 MPF* 10 ML VIAL INJ ONE (20:44)
[2019-06-19] MEDS ORDERED: Lidocaine 2% w/ EPI 1:200,000* 20 ML SDV VIAL ONE (20:46)
[2019-06-19 21:21] LABS: Albumin/Globulin Ratio 0.9 (1-3); BUN/Creatinine Ratio 27.7 (8-20); Calcium 8.3 mg/dL (8.6-10.3); EGFR African American 90.3 (>60); EGFR Non-African American 74.6 (>60); Globulin 3.2 g/dL (2-4); Potassium 3.7 mmol/L (3.5-5.0); Total Protein 6.2 g/dL (6.4-8.9); Troponin I 0.03 ng/mL (<0.04)
[2019-06-19 21:28] LABS: Total Bilirubin 12.9 mg/dL (0.2-1.0)
[2019-06-19] MEDS ORDERED: fentaNYL* 50 MCG/ML 2 ML VIAL (100 MCG VIAL) IV SLOW PU ONE (21:28)
[2019-06-19] MEDS ORDERED: Lidocaine 1% INJ* 10 MG/ML 30 ML SDV INJ ONE (21:28)
[2019-06-19 21:40] LABS: ABS Eosinophils 0.6 10^3/ul (0-0.6); ABS Monocytes 0.4 10^3/ul (0-0.8); ABS Neutrophils 11.5 10^3/ul (1.5-7.7); Eosinophil % 4.4 %; Hematocrit 33 % (42-52); Hemoglobin 10.6 g/dL (14.0-18.0); Lymphocyte % 7.1 %; Mean Corpuscular HGB Conc 33 g/dL (31-36); Mean Corpuscular Hemoglobin 34 pg (27-31); Mean Corpuscular Volume 104 fL (80-94); Mean Platelet Volume 10.1 fL (7.4-10.4); Nucleated Red Blood Cells % 0.1; Platelet Count 79 10^3/uL (150-450); Red Blood Count 3.12 10^6 /uL (4.18-5.48); Red Cell Distribution Width 25 % (10-15); White Blood Count 13.5 10^3/uL (3.5-10.8)
[2019-06-19] MEDS ORDERED: Acetaminophen TAB* 325 MG PO PRN (21:55)
[2019-06-19] MEDS ORDERED: Morphine INJ* 2 MG/ML 1 ML SYRINGE (TWO MG - NEW SYRINGE VERSION) IV PRN (21:55)
[2019-06-19] MEDS ORDERED: Vancomycin(*) 1,000 MG in NS 0.9% 250 ML* 250 ML IVPB ONE (21:58)
[2019-06-19] MEDS ORDERED: Cefepime 2 GM in Dextrose(*) 2 GM/50 ML BAG IV ONE (21:58)
--- NOTE | 2019-06-19 23:06 | OP ---
OPERATIVE REPORT: DATE OF OPERATION: 06/19/19. DATE OF : 57. SURGEON: Gigi Doran MD PRE-OP DIAGNOSIS: Spontaneous right pneumothorax. POST-OP DIAGNOSIS: Spontaneous right pneumothorax. OPERATIVE PROCEDURE: Placement of 16-Algerian right chest tube. INDICATION FOR PROCEDURE: Spontaneous pneumothorax. Risks including but not limited to bleeding, infection, injury to lung or other chest contents explai perez along with persistent pneumothorax. He seemed to understand and agreed to the procedure. Consen t was signed and all questions were answered. DESCRIPTION OF PROCEDURE: In the emergency room bed in the supine position with his right arm extend ed and the hand placed behind his head, the right chest was prepped and draped in a sterile fashion. The skin was anesthetized with plain lidocaine. In the mid axillary line, just above the nipple lev el, a 16-Algerian chest tube was placed over the rib and into the chest cavity and connected to Pleur- evac suction. The patient felt immediate relief. The chest tube was sutured in place with a silk byrne ture. A chest x-ray was ordered. Sedation was given by the emergency room physician prior to the pr ocedure with fentanyl. He tolerated the procedure well. ESTIMATED BLOOD LOSS: Minimal/zero. [id number]/[facility] #: [id number]
[2019-06-20] MEDS: RiFAXimin* 550 MG TAB PO SCH ×3 (00:34→21:02)
[2019-06-20] MEDS ORDERED: Vancomycin per Pharmacy* NOTE FOLLOW UP PRN (00:37)
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
[2019-06-20] MEDS: HYDROcodone/ACETAMIN 5-325 MG* 1 TAB PO PRN ×4 (02:01→16:31)
[2019-06-20] MEDS: Morphine INJ* 2 MG/ML 1 ML SYRINGE (TWO MG - NEW SYRINGE VERSION) IV PRN ×5 (02:01→14:47)
[2019-06-20 05:45] LABS: Hematocrit 29 % (42-52); Hemoglobin 9.9 g/dL (14.0-18.0); Mean Corpuscular HGB Conc 34 g/dL (31-36); Mean Corpuscular Hemoglobin 36 pg (27-31); Mean Corpuscular Volume 106 fL (80-94); Mean Platelet Volume 10.3 fL (7.4-10.4); Platelet Count 57 10^3/uL (150-450); Red Blood Count 2.76 10^6 /uL (4.18-5.48); Red Cell Distribution Width 25 % (10-15); White Blood Count 9.9 10^3/uL (3.5-10.8)
[2019-06-20 05:59] LABS: Albumin 2.7 g/dL (3.2-5.2); BUN/Creatinine Ratio 31.2 (8-20); Calcium 7.8 mg/dL (8.6-10.3); EGFR African American 99.3 (>60); EGFR Non-African American 82.1 (>60); Globulin 2.8 g/dL (2-4); Potassium 3.7 mmol/L (3.5-5.0); Total Bilirubin 11.2 mg/dL (0.2-1.0); Total Protein 5.5 g/dL (6.4-8.9)
[2019-06-20 06:30] LABS: ABS Eosinophils 0.5 10^3/ul (0-0.6); ABS Lymphocytes 0.7 10^3/ul (1.0-4.8); ABS Monocytes 0.3 10^3/ul (0-0.8); ABS Neutrophils 8.4 10^3/ul (1.5-7.7); Eosinophil % 4.7 %; Lymphocyte % 6.9 %; Polychromasia 1+
[2019-06-20] MEDS: Cefepime 2 GM in Dextrose(*) 2 GM/50 ML BAG IV SCH ×2 (08:00→15:12)
[2019-06-20] MEDS: Vancomycin(*) 1,250 MG in NS 0.9% 250 ML* 250 ML IVPB SCH ×2 (09:39→22:28)
[2019-06-20] MEDS: Nadolol TAB* 40 MG PO SCH (09:42)
[2019-06-20] MEDS: Acyclovir* 400 MG TAB PO SCH ×2 (09:42→21:02)
[2019-06-20] MEDS: Pantoprazole TAB * 40 MG TAB PO SCH (09:44)
[2019-06-20] MEDS: Spironolactone TAB* 25 MG PO SCH (09:44)
[2019-06-20] MEDS: Morphine TAB Extended Release (*) 15 MG TAB.ER PO SCH ×2 (09:44→21:02)
[2019-06-20] MEDS: Furosemide TAB* 20 MG PO SCH (09:44)
--- NOTE | 2019-06-20 10:50 | PN ---
Subjective Date of Service: 06/20/19 Interval History: Pt states SOB is improving. He notes that he avoids walking, due to his peripheral edema, which is chronic, but worse in last month. He c/o pain all over, due to cancer. He states that his next dose of chemo is due Saturday. Objective Active Medications: Acetaminophen (Tylenol Tab*) 650 mg PO Q6H PRN Hydrocodone Bitart/Acetaminophen (Buckeye 5-325 Tab*) 1 tab PO Q4HR PRN Acyclovir (Zovirax Tab*) 400 mg PO BID BLAYNE Furosemide (Lasix Tab*) 20 mg PO DAILY BLAYNE Cefepime HCl (Maxipime 2 Gm In Dextrose Duplex (*)) 2 gm in 50 mls @ 100 mls/ hr IV Q8H BLAYNE Vancomycin HCl 1,250 mg/ (Sodium Chloride) 250 mls @ 166.667 mls/hr IVPB Q12H B[facility]NE Lactulose (Lactulose*) 30 ml PO TID BLAYNE Morphine Sulfate (Ms Contin(*)) 15 mg PO BID BLAYNE Morphine Sulfate (Morphine Inj (Syringe))*) 1 mg IV Q1H PRN Nadolol (Corgard Tab*) 20 mg PO DAILY BLAYNE Pantoprazole Sodium (Protonix Tab*) 40 mg PO DAILY [facility] Pharmacy Consult (Vancomycin Per Pharmacy*) 1 note FOLLOW UP . PRN Pharmacy Profile Note (Vancomycin Trough Check) 1 note FOLLOW UP 0930 ONE Pneumococcal Polyvalent Vaccine (Pneumococcal Vac 23-Polyvalent*) 0.5 ml IM .ONCE ONE Rifaximin (Xifaxan*) 550 mg PO BID BLAYNE Spironolactone (Aldactone Tab*) 25 mg PO DAILY [facility] Vital Signs: Temp Pulse Resp BP Pulse Ox 99.3 F 79 16 106/57 98 06/20/19 16:10 06/20/19 16:10 06/20/19 18:40 06/20/19 16:10 06/20/19 16:10 Oxygen Devices in Use Now: Nasal Cannula Appearance: Pt is laying in bed with HOB elevated. He is jaundice and appears chronically ill and weak. He is in no acute distress. Eyes: PERRLA, - - Icterus. Neck: NL Appearance and Movements; NL JVP, Trachea Midline Respiratory: Symmetrical Chest Expansion and Respiratory Effort, - - L side crackles throughout. Cardiovascular: NL Sounds; No Murmurs; No JVD, RRR, - - 3+ b/l LE pitting edema Abdominal: NL Sounds; No Tenderness; No Distention, No Hepatosplenomegaly Extremities: No Clubbing, Cyanosis Skin: - - Jaundice. Neurological: Alert and Oriented x 3 Result Diagrams: 06/20/19 05:27 06/20/19 05:27 Microbiology and Other Data: Microbiology 06/20/19 03:50 Legionella Urinary Antigen - Final Urine Negative Legionella Antigen Streptococcus pneumoniae Ag Screen - Final Negative S. pneumo Antigen Assess/Plan/Problems-Billing Assessment: 64yom PMHx multiple myeloma, currently on chemo, HCV, liver cirrhosis, recent UGIB presents with SOB, found to have ptx due to pathological rib fx; R chest tube placed. - Patient Problems (1) Pneumothorax Comment: -R lung chest tube in place; pt with b/l pneumothorax likely from b/l rib fractures; no recommendation for L chest tube -Pt reports improved SOB -Surgery, Dr. Doran following; thank you for recommendations (2) Hospital-acquired pneumonia Comment: -SOB has improved; afebrile with improved leukocytosis -Likely HAP; continue treatment with Cefepime, Vanco -BC pending -Urine for strep, legionella negative (3) Liver cirrhosis Comment: -Pt with b/l LE edema, jaundice, scleral icterus; LFTs decreasing but are still very elevated -Continue nadolol, spironolactone -BP low-normal; will consider lasix later in hospital course (4) Multiple myeloma Comment: -Pt states he is on PO chemo and follows with Dr. Vasques -Dr. Vasques notified and consulted with pt today; awaiting further recommendations (5) Hepatic encephalopathy Comment: -Continue home lactulose -Continue rifaximin (6) DVT prophylaxis Comment: -Hold chemo ppx in light of recent UGIB and SCD d/t LE edema (7) Full code status Status and Disposition: Inpatient. Discharge when stable.
[2019-06-20] MEDS ORDERED: Pneumococcal *Vac Polyvalent 0.5 ML VIAL IM ONE (11:00)
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
[2019-06-21] MEDS: Cefepime 2 GM in Dextrose(*) 2 GM/50 ML BAG IV SCH ×4 (00:08→23:41)
[2019-06-21] MEDS: HYDROcodone/ACETAMIN 5-325 MG* 1 TAB PO PRN ×4 (00:56→23:40)
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
[2019-06-21 07:03] LABS: ABS Eosinophils 0.7 10^3/ul (0-0.6); ABS Lymphocytes 0.7 10^3/ul (1.0-4.8); ABS Monocytes 0.3 10^3/ul (0-0.8); ABS Neutrophils 7.1 10^3/ul (1.5-7.7); Eosinophil % 8.3 %; Hematocrit 26 % (42-52); Hemoglobin 8.9 g/dL (14.0-18.0); Lymphocyte % 7.9 %; Mean Corpuscular HGB Conc 35 g/dL (31-36); Mean Corpuscular Hemoglobin 36 pg (27-31); Mean Corpuscular Volume 103 fL (80-94); Mean Platelet Volume 9.8 fL (7.4-10.4); Nucleated Red Blood Cells % 0.1; Platelet Count 54 10^3/uL (150-450); Red Blood Count 2.49 10^6 /uL (4.18-5.48); Red Cell Distribution Width 25 % (10-15)
[2019-06-21 07:15] LABS: Albumin 2.5 g/dL (3.2-5.2); Albumin/Globulin Ratio 0.9 (1-3); BUN/Creatinine Ratio 28.9 (8-20); Calcium 7.8 mg/dL (8.6-10.3); EGFR African American 94.6 (>60); EGFR Non-African American 78.2 (>60); Globulin 2.7 g/dL (2-4); Potassium 3.6 mmol/L (3.5-5.0); Total Bilirubin 10.7 mg/dL (0.2-1.0); Total Protein 5.2 g/dL (6.4-8.9)
[2019-06-21] MEDS: RiFAXimin* 550 MG TAB PO SCH ×2 (08:40→21:25)
[2019-06-21] MEDS: Morphine TAB Extended Release (*) 15 MG TAB.ER PO SCH ×2 (08:40→21:25)
[2019-06-21] MEDS: Furosemide TAB* 20 MG PO SCH (08:41)
[2019-06-21] MEDS: Nadolol TAB* 40 MG PO SCH (08:41)
[2019-06-21] MEDS: Pantoprazole TAB * 40 MG TAB PO SCH (08:41)
[2019-06-21] MEDS: Acyclovir* 400 MG TAB PO SCH ×2 (08:41→21:25)
[2019-06-21] MEDS: Spironolactone TAB* 25 MG PO SCH ×2 (08:41→10:03)
--- NOTE | 2019-06-21 08:56 | PN ---
Subjective Date of Service: 06/21/19 Interval History: Pt states he is doing well today. He states that his SOB is improved and he is not having difficulty with breathing. He admits to cough last night d/t congestion and post-nasal drainage, but otherwise denies cough, fever, chills. He was up to chair yesterday and feels that his peripheral edema has decreased somewhat. Pt has h/o HCV obtained in [place] from a B12 injection. He denies IV drug use, alcohol use. He has 1 female partner with whom he has unprotected intercourse since treatment of HCV. He has cirrhosis. He denies abdominal pain , n/v. Objective Active Medications: Acetaminophen (Tylenol Tab*) 650 mg PO Q6H PRN Hydrocodone Bitart/Acetaminophen ([place] 5-325 Tab*) 1 tab PO Q4HR PRN Acyclovir (Zovirax Tab*) 400 mg PO BID [facility] Furosemide (Lasix Tab*) 20 mg PO DAILY [facility] Cefepime HCl (Maxipime 2 Gm In Dextrose Duplex (*)) 2 gm in 50 mls @ 100 mls/ hr IV Q8H [facility] Vancomycin HCl 1,250 mg/ (Sodium Chloride) 250 mls @ 166.667 mls/hr IVPB Q12H [facility] Lactulose (Lactulose*) 30 ml PO TID [facility] Morphine Sulfate (Ms Contin(*)) 15 mg PO BID [facility] Morphine Sulfate (Morphine Inj (Syringe))*) 1 mg IV Q1H PRN Nadolol ([place] Tab*) 20 mg PO DAILY [facility] Pantoprazole Sodium (Protonix Tab*) 40 mg PO DAILY [facility] Pharmacy Consult (Vancomycin Per Pharmacy*) 1 note FOLLOW UP . PRN Pharmacy Profile Note (Vancomycin Trough Check) 1 note FOLLOW UP 0930 ONE Rifaximin (Xifaxan*) 550 mg PO BID [facility] Spironolactone (Aldactone Tab*) 50 mg PO DAILY [facility] Vital Signs: Temp Pulse Resp BP Pulse Ox 98.2 F 82 16 104/46 97 06/21/19 08:00 06/21/19 08:00 06/21/19 08:40 06/21/19 08:00 06/21/19 08:00 Oxygen Devices in Use Now: Nasal Cannula Appearance: Pt is sitting up in bed with HOB elevated. He appears to be in no acute distress and is breathing comfortably. Chronically ill-appearing, jaundiced, and appears older than stated age. Eyes: PERRLA, - - Icteric sclera Ears/Nose/Mouth/Throat: Clear Oropharnyx, Mucous Membranes Moist Neck: NL Appearance and Movements; NL JVP, Trachea Midline Respiratory: Symmetrical Chest Expansion and Respiratory Effort, - - B/l lungs clear to ausculation. R chest tube in place. There is some subcutaneous emphysema crackling on the left side. Cardiovascular: NL Sounds; No Murmurs; No JVD, RRR Abdominal: NL Sounds; No Tenderness; No Distention, - - Abdomen distended without notable fluid wave. BS in all quadrants. Nontender to palpation. Extremities: No Clubbing, Cyanosis, - - B/l LE 2+ pitting edema. Neurological: Alert and Oriented x 3, - - CN grossly intact. Result Diagrams: 06/21/19 06:38 06/21/19 06:38 Microbiology and Other Data: Microbiology 06/20/19 03:50 Legionella Urinary Antigen - Final Urine Negative Legionella Antigen Streptococcus pneumoniae Ag Screen - Final Negative S. pneumo Antigen Assess/Plan/Problems-Billing Assessment: 64yom PMHx multiple myeloma, currently on chemo, HCV, liver cirrhosis, recent UGIB presents with SOB, found to have ptx due to pathological rib fx; R chest tube placed. - Patient Problems (1) Hospital-acquired pneumonia Comment: -SOB has improved; afebrile with improved leukocytosis -Likely HAP; continue treatment with Cefepime, Vanco -BC x1 shows gram positive bacilli -ID consulted and notified -Urine for strep, legionella negative (2) Liver cirrhosis Comment: -Pt with mild ascites, hepatic encephalopathy; MELD-Na score: 24, therefore 14- 15% estimated 90-day mortality -Pt with b/l LE edema, jaundice, scleral icterus -h/o esophageal varices 2011 and May 2018, both s/p banding -LFTs trending down, but still elevated -Continue Lasix; increase spironolactone to 50 -Continue nadolol -US liver from May shows echogenic material in portal vein, R liver lobe lesion -CT abd/pel with and without shows 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, portal vein thrombus -GI consulted, notified; thank you for recommendations -Albumin ordered -AFP ordered -Will need outpatient variceal banding (3) Hepatic encephalopathy Comment: -Lactulose titrated to 3-4 BM per day -Continue rifaximin -Continue to monitor ammonia (4) Pneumothorax Comment: -R lung chest tube in place; pt with b/l pneumothorax likely from b/l rib fractures; no recommendation for L chest tube at this time -Pt reports improved SOB; breath sounds clear -Surgery following; thank you for recommendations (5) Multiple myeloma Comment: -Pt states he is on PO chemo and follows with Dr. Vasques -CT abd/pel shows multiple myeloma at T12 with epidural extension, mild spinal stenosis. If there is any neuropathy, MRI is indicated to assess severity of stenosis. -Dr. Vasques notified and consulted (6) DVT prophylaxis Comment: -Hold chemo ppx in light of recent UGIB and SCD d/t LE edema (7) Full code status Status and Disposition: Inpatient. Discharge when stable.
--- NOTE | 2019-06-21 08:59 | PN ---
Progress Note - Progress Note Date of Service: 06/21/19 SOAP: Subjective: [] "feel much better" Objective: [] Temp Pulse Resp BP Pulse Ox 98.2 F 82 16 104/46 97 06/21/19 08:00 06/21/19 08:00 06/21/19 08:40 06/21/19 08:00 06/21/19 08:00 lungs clear anteriorly chest tube -no air leak Assessment: []stable pneumothorax treated with chest tube Plan: []chest tube to water seal in am, ? dc tube soon
[2019-06-21] MEDS ORDERED: Vancomycin Trough Check NOTE FOLLOW UP ONE (09:30)
[2019-06-21 09:46] LABS: INR 1.63 (0.82-1.09)
[2019-06-21] MEDS: Vancomycin(*) 1,250 MG in NS 0.9% 250 ML* 250 ML IVPB SCH (10:31)
[2019-06-21] MEDS ORDERED: Iohexol 300* (CONTRAST) 10 ML SDV IV ONE (10:43)
[2019-06-21] MEDS: Vancomycin(*) 1,000 MG in NS 0.9% 250 ML* 250 ML IVPB SCH (12:11)
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
[2019-06-21] MEDS: Morphine INJ* 2 MG/ML 1 ML SYRINGE (TWO MG - NEW SYRINGE VERSION) IV PRN (20:15)
[2019-06-21] MEDS: Albumin Human 25%* 25 GM/100 ML BTL IV SCH (21:31)
[2019-06-22] MEDS: Vancomycin(*) 1,000 MG in NS 0.9% 250 ML* 250 ML IVPB SCH (00:24)
[2019-06-22] MEDS: HYDROcodone/ACETAMIN 5-325 MG* 1 TAB PO PRN ×4 (04:01→23:29)
[2019-06-22 05:09] LABS: Hematocrit 24 % (42-52); Hemoglobin 8.2 g/dL (14.0-18.0); Mean Corpuscular HGB Conc 34 g/dL (31-36); Mean Corpuscular Hemoglobin 36 pg (27-31); Mean Corpuscular Volume 105 fL (80-94); Mean Platelet Volume 9.4 fL (7.4-10.4); Platelet Count 59 10^3/uL (150-450); Red Cell Distribution Width 24 % (10-15)
[2019-06-22 05:10] LABS: INR 1.71 (0.82-1.09)
[2019-06-22 05:21] LABS: ALT 98 U/L (7-52); Albumin 2.7 g/dL (3.2-5.2); Albumin/Globulin Ratio 1.1 (1-3); Alkaline Phosphatase 218 U/L (34-104); BUN/Creatinine Ratio 23.7 (8-20); Blood Urea Nitrogen 23 mg/dL (6-24); CO2 Carbon Dioxide 22 mmol/L (22-32); Calcium 7.9 mg/dL (8.6-10.3); Chloride 101 mmol/L (101-111); EGFR African American 94.6 (>60); EGFR Non-African American 78.2 (>60); Globulin 2.5 g/dL (2-4); Glucose 115 mg/dL (70-100); Sodium 132 mmol/L (135-145); Total Protein 5.2 g/dL (6.4-8.9)
[2019-06-22 05:46] LABS: Anion Gap 9 mmol/L (2-11)
[2019-06-22 07:11] LABS: Potassium Redraw 3.4 mmol/L (3.5-5.0)
[2019-06-22] MEDS: Cefepime 2 GM in Dextrose(*) 2 GM/50 ML BAG IV SCH ×3 (07:51→23:30)
[2019-06-22] MEDS ORDERED: Potassium Chlor TAB* 20 MEQ TAB.ER PO ONE (09:00)
[2019-06-22] MEDS: Morphine TAB Extended Release (*) 15 MG TAB.ER PO SCH ×2 (10:27→20:48)
[2019-06-22] MEDS: Spironolactone TAB* 25 MG PO SCH (10:27)
[2019-06-22] MEDS: Acyclovir* 400 MG TAB PO SCH ×2 (10:28→20:49)
[2019-06-22] MEDS: Pantoprazole TAB * 40 MG TAB PO SCH (10:28)
[2019-06-22] MEDS: Nadolol TAB* 40 MG PO SCH (10:28)
[2019-06-22] MEDS: Furosemide TAB* 20 MG PO SCH (10:28)
[2019-06-22] MEDS: Albumin Human 25%* 25 GM/100 ML BTL IV SCH ×2 (10:28→21:01)
[2019-06-22] MEDS: RiFAXimin* 550 MG TAB PO SCH ×2 (10:30→20:49)
[2019-06-22] MEDS ORDERED: Azithromycin TAB* 250 MG PO ONE (11:27)
--- NOTE | 2019-06-22 12:25 | PN ---
Progress Note - Progress Note Date of Service: 06/22/19 Note: Surgery Progress: S: Breathing feels "great". Some bilateral rib pain, robyn if he has to sit up. O: Vital Signs - 8 hr 06/22/19 06/22/19 06/22/19 06:26 07:40 07:41 Temperature 98.3 F Pulse Rate 77 Respiratory 18 14 Rate Blood Pressure 100/45 108/35 (mmHg) O2 Sat by Pulse 95 Oximetry 06/22/19 06/22/19 06/22/19 08:00 08:07 10:27 Temperature Pulse Rate Respiratory 14 14 14 Rate Blood Pressure (mmHg) O2 Sat by Pulse 95 Oximetry 06/22/19 06/22/19 11:20 11:33 Temperature 98.5 F Pulse Rate 78 Respiratory 14 Rate Blood Pressure 110/42 114/48 (mmHg) O2 Sat by Pulse 96 Oximetry Gen: jaundiced-appearing male in NAD Heart: reg Lungs: clear bilat in upper anterior tucker; small areas of crepitus palp Left side, lateral chest wall and base of neck. Pleurevac w/ min serosang drainage; no air leak Most recent cXray from 06/20 reviewed A: bilateral pneumothoraces, s/p chest tube placement on Right; improved P: suction d/c'd to Right chest tube; discussed w/ Dr. Arnold (covering); will check xray; prob d/c Chest tube 06/23
--- NOTE | 2019-06-22 18:18 | PN ---
Progress Note - Progress Note Date of Service: 06/22/19 Note: feels better today, breathing better, no confusion; edema still an issue VS; 98.9, 101/48 nad, alert +bs, soft no asterixis MELD has increased, as INR, bili trending up lactulose at TID, can increase diuretics to lasix 40mg, aldactone 100mg as renal fxn stable awaiting imaging and afp to eval for HCC will follow Migel Decker MD [facility]
--- NOTE | 2019-06-22 19:10 | PN ---
Subjective Date of Service: 06/22/19 Interval History: Late entry: Pt seen today; states he is feeling well. Discussed CT findings and possible clinical course. He is accepting, but appears somewhat discouraged. Pt denies fever. He continues to have b/l LE edema. Denies abd pain. He had 1 BM yesterday, and none as of this morning. He denies numbness/tingling in UE or LE. he denies hematemesis, melena, hematochezia. He feels that he is urinating well and has been up to the BR with walker. Objective Active Medications: Acetaminophen (Tylenol Tab*) 650 mg PO Q6H PRN Hydrocodone Bitart/Acetaminophen ([place] 5-325 Tab*) 1 tab PO Q4HR PRN Acyclovir (Zovirax Tab*) 400 mg PO BID BLAYNE Azithromycin (Zithromax Tab*) 250 mg PO DAILY BLAYNE Furosemide (Lasix Tab*) 20 mg PO DAILY BLAYNE Cefepime HCl (Maxipime 2 Gm In Dextrose Duplex (*)) 2 gm in 50 mls @ 100 mls/ hr IV Q8H BLAYNE Albumin Human (Albumin Human 25%*) 25 gm in 100 mls @ 100 mls/hr IV BID BLAYNE Lactulose (Lactulose*) 30 ml PO TID BLAYNE Morphine Sulfate (Ms Contin(*)) 15 mg PO BID BLAYNE Morphine Sulfate (Morphine Inj (Syringe))*) 1 mg IV Q1H PRN Nadolol ([place] Tab*) 20 mg PO DAILY BLAYNE Pantoprazole Sodium (Protonix Tab*) 40 mg PO DAILY BLAYNE Rifaximin (Xifaxan*) 550 mg PO BID BLAYNE Spironolactone (Aldactone Tab*) 50 mg PO DAILY BLAYNE Vital Signs: Temp Pulse Resp BP Pulse Ox 98.9 F 78 15 101/48 95 06/22/19 15:31 06/22/19 15:31 06/22/19 16:28 06/22/19 15:31 06/22/19 16:00 Oxygen Devices in Use Now: None Appearance: Pt is laying in bed with HOB elevated, LE elevated and wrapped. He is comfortable, appropriate; in no acute distress. Jaundiced. Eyes: PERRLA, - - Scleral icterus Ears/Nose/Mouth/Throat: NL Teeth, Lips, Gums, Clear Oropharnyx, Mucous Membranes Moist Neck: NL Appearance and Movements; NL JVP, Trachea Midline Respiratory: Symmetrical Chest Expansion and Respiratory Effort, Clear to Auscultation, - - Subcutaneous emphysema noted. Cardiovascular: NL Sounds; No Murmurs; No JVD, RRR Abdominal: - - Abd appears distended. BS in all quadrants. Nontender to palpation. Extremities: No Clubbing, Cyanosis, - - B/l LE anasarca. No asterixis. Neurological: Alert and Oriented x 3 Result Diagrams: 06/22/19 04:56 06/22/19 06:43 Microbiology and Other Data: Microbiology 06/20/19 03:50 Legionella Urinary Antigen - Final Urine Negative Legionella Antigen Streptococcus pneumoniae Ag Screen - Final Negative S. pneumo Antigen Assess/Plan/Problems-Billing Assessment: 64yom PMHx multiple myeloma, currently on chemo, HCV, liver cirrhosis, recent UGIB presents with SOB, found to have ptx due to pathological rib fx; R chest tube placed. - Patient Problems (1) Hospital-acquired pneumonia Comment: -SOB has improved; afebrile with improved leukocytosis -Likely HAP -BC x1 shows gram positive bacilli (likely contaminant) -ID consulted and notified; recommend d/c vanco (done) -Continue cefepime and add azithro -Urine for strep, legionella negative (2) Liver cirrhosis Comment: -Pt with mild ascites, hepatic encephalopathy; MELD-Na score: 24, therefore 14- 15% estimated 90-day mortality -Pt with b/l LE edema, jaundice, scleral icterus -h/o esophageal varices 2011 and May 2018, both s/p banding -LFTs trending down, but still elevated -Increase lasix to 40, spironolactone to 100 -Continue nadolol -US liver from May shows echogenic material in portal vein, R liver lobe lesion -CT abd/pel with and without shows 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, portal vein thrombus -GI consulted, notified; thank you for recommendations -Albumin ordered -AFP ordered -Will need outpatient variceal banding (3) Hepatic encephalopathy Comment: -Lactulose titrated to 3-4 BM per day -Continue rifaximin -Continue to monitor ammonia (4) Pneumothorax Comment: -R lung chest tube in place; pt with b/l pneumothorax likely from b/l rib fractures; no recommendation for L chest tube at this time -Pt reports improved SOB; breath sounds clear -Surgery following; thank you for recommendations -Planning for possible removal 06/23 (5) Multiple myeloma Comment: -Pt states he is on PO chemo and follows with Dr. Vasques -CT abd/pel shows multiple myeloma at T12 with epidural extension, mild spinal stenosis. If there is any neuropathy, MRI is indicated to assess severity of stenosis. -Dr. Vasques notified and consulted (6) DVT prophylaxis Comment: -Hold chemo ppx in light of recent UGIB and SCD d/t LE edema (7) Full code status Status and Disposition: Inpatient. Discharge when stable.
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
[2019-06-22] MEDS: Morphine INJ* 2 MG/ML 1 ML SYRINGE (TWO MG - NEW SYRINGE VERSION) IV PRN (19:51)
[2019-06-23] MEDS: HYDROcodone/ACETAMIN 5-325 MG* 1 TAB PO PRN ×2 (05:35→15:57)
[2019-06-23 05:48] LABS: ABS Eosinophils 0.5 10^3/ul (0-0.6); ABS Lymphocytes 0.5 10^3/ul (1.0-4.8); ABS Monocytes 0.6 10^3/ul (0-0.8); ABS Neutrophils 7.1 10^3/ul (1.5-7.7); Eosinophil % 6.1 %; Hematocrit 24 % (42-52); Lymphocyte % 5.7 %; Mean Corpuscular HGB Conc 34 g/dL (31-36); Mean Corpuscular Hemoglobin 36 pg (27-31); Mean Corpuscular Volume 106 fL (80-94); Mean Platelet Volume 8.9 fL (7.4-10.4); Platelet Count 50 10^3/uL (150-450); Red Blood Count 2.24 10^6 /uL (4.18-5.48); Red Cell Distribution Width 24 % (10-15); White Blood Count 8.7 10^3/uL (3.5-10.8)
[2019-06-23 05:52] LABS: INR 1.78 (0.82-1.09)
[2019-06-23 06:17] LABS: BUN/Creatinine Ratio 22.4 (8-20); Calcium 8.3 mg/dL (8.6-10.3); EGFR African American 110.2 (>60); Potassium 3.5 mmol/L (3.5-5.0)
[2019-06-23] MEDS: Cefepime 2 GM in Dextrose(*) 2 GM/50 ML BAG IV SCH ×2 (07:41→15:57)
[2019-06-23] MEDS: Morphine INJ* 2 MG/ML 1 ML SYRINGE (TWO MG - NEW SYRINGE VERSION) IV PRN (07:45)
[2019-06-23] MEDS: Nadolol TAB* 40 MG PO SCH (10:11)
[2019-06-23] MEDS: RiFAXimin* 550 MG TAB PO SCH ×2 (10:11→21:43)
[2019-06-23] MEDS: Morphine TAB Extended Release (*) 15 MG TAB.ER PO SCH ×2 (10:12→21:43)
[2019-06-23] MEDS: Spironolactone TAB* 25 MG PO SCH (10:12)
[2019-06-23] MEDS: Acyclovir* 400 MG TAB PO SCH ×2 (10:14→21:44)
[2019-06-23] MEDS: Pantoprazole TAB * 40 MG TAB PO SCH (10:14)
[2019-06-23] MEDS: Azithromycin TAB* 250 MG PO SCH (10:15)
[2019-06-23] MEDS: Furosemide TAB* 40 MG PO SCH (10:15)
[2019-06-23] MEDS: Albumin Human 25%* 25 GM/100 ML BTL IV SCH ×2 (10:17→21:36)
[2019-06-23] MEDS ORDERED: Vancomycin Trough Check NOTE FOLLOW UP ONE (11:30)
--- NOTE | 2019-06-23 19:29 | PN ---
Subjective Date of Service: 06/23/19 Interval History: Assessed in bed. Denies fever, chills, and abd pain. Continues to have bilateral LE edema. In addition he has scrotal edema which is uncomfortable. Reports he is urinary large amounts of dark colored urine. Objective Active Medications: Acetaminophen (Tylenol Tab*) 650 mg PO Q6H PRN PRN Reason: MILD PAIN or TEMP > 100.4 Last Admin: 06/23/19 01:38 Dose: 650 mg Hydrocodone Bitart/Acetaminophen ([place] 5-325 Tab*) 1 tab PO Q4HR PRN PRN Reason: Moderate pain Last Admin: 06/23/19 15:57 Dose: 1 tab Acyclovir (Zovirax Tab*) 400 mg PO BID [facility] Last Admin: 06/23/19 10:14 Dose: 400 mg Azithromycin (Zithromax Tab*) 250 mg PO DAILY [facility] Stop: 06/27/19 08:59 Last Admin: 06/23/19 10:15 Dose: 250 mg Furosemide (Lasix Tab*) 40 mg PO DAILY [facility] Last Admin: 06/23/19 10:15 Dose: 40 mg Cefepime HCl (Maxipime 2 Gm In Dextrose Duplex (*)) 2 gm in 50 mls @ 100 mls/ hr IV Q8H [facility] Last Admin: 06/23/19 15:57 Dose: 100 mls/hr Albumin Human (Albumin Human 25%*) 25 gm in 100 mls @ 100 mls/hr IV BID [facility] Last Admin: 06/23/19 10:17 Dose: 100 mls/hr Lactulose (Lactulose*) 30 ml PO TID [facility] Last Admin: 06/23/19 13:56 Dose: Not Given Morphine Sulfate (Ms Contin(*)) 15 mg PO BID [facility] Last Admin: 06/23/19 10:12 Dose: 15 mg Morphine Sulfate (Morphine Inj (Syringe))*) 1 mg IV Q1H PRN PRN Reason: SEVERE PAIN Last Admin: 06/23/19 07:45 Dose: 1 mg Nadolol (Corgard Tab*) 20 mg PO DAILY [facility] Last Admin: 06/23/19 10:11 Dose: 20 mg Pantoprazole Sodium (Protonix Tab*) 40 mg PO DAILY [facility] Last Admin: 06/23/19 10:14 Dose: 40 mg Rifaximin (Xifaxan*) 550 mg PO BID [facility] Last Admin: 06/23/19 10:11 Dose: 550 mg Spironolactone (Aldactone Tab*) 100 mg PO DAILY [facility] Last Admin: 06/23/19 10:12 Dose: 100 mg Vital Signs - 8 hr 06/23/19 06/23/19 06/23/19 15:09 15:57 16:00 Temperature 98 F Pulse Rate 75 Respiratory 19 18 Rate Blood Pressure 109/52 (mmHg) O2 Sat by Pulse 94 94 Oximetry Oxygen Devices in Use Now: None Appearance: NAD Eyes: No Scleral Icterus Ears/Nose/Mouth/Throat: Clear Oropharnyx, Mucous Membranes Moist Neck: NL Appearance and Movements; NL JVP Respiratory: Symmetrical Chest Expansion and Respiratory Effort, Clear to Auscultation Cardiovascular: NL Sounds; No Murmurs; No JVD, RRR, - - +3 pitting edema to BLE. Abdominal: - - Mild abd distention. Denies pain. BS+ Lymphatic: No Cervical Adenopathy Skin: No Rash or Ulcers Neurological: Alert and Oriented x 3 Nutrition: Taking PO's - Nutrition: Malnutrition Diagnosis/Plan Malnutrition Assessment by Registered Dietitian: Malnutrition Assessment Clinical Characteristics Chronic,Severe Malnutrition Assessment: Severe Muscle Wasting - Temporal muscles Criteria Severe Fat Pad Wasting - Orbital fat pads Inadequate Oral Intake - Consumed 75-90% single meal x3 days, w/ reported poor intake since CA dx x3 mos ago Malnutrition Assessment: Nutritional Supplementals/Nourishments - Pt Interventions amenable to trialing anything; will send Ensure Enlive (350kcal, 20g prot/serv) w/ B, L, and D daily to optimize kcal/prot intake; will monitor acceptance. Malnutrition Assessment: Goals 1) Adequate po intake to replete lean body mass and hydration status 2) Improve fluid/electrolyte balance w/ adequate po intake 3) Maintain bowel regularity w/ adequate po intake w/o development of diarrhea/constipation Result Diagrams: 06/23/19 05:33 06/23/19 05:33 Additional Lab and Data: Laboratory Results - last 24 hr 06/21/19 06/23/19 06/23/19 06:38 05:33 05:33 WBC 8.7 RBC 2.24 L Hgb 8.0 L Hct 24 L MCV 106 H MCH 36 H MCHC 34 RDW 24 H Plt Count 50 L MPV 8.9 Neut % (Auto) 81.2 Lymph % (Auto) 5.7 [place] % (Auto) 6.5 Eos % (Auto) 6.1 Baso % (Auto) 0.5 Absolute Neuts (auto) 7.1 Absolute Lymphs (auto) 0.5 L Absolute Monos (auto) 0.6 Absolute Eos (auto) 0.5 Absolute Basos (auto) 0.0 Absolute Nucleated RBC 0.0 Nucleated RBC % 0.0 INR (Anticoag Therapy) 1.78 H Sodium Potassium Chloride Carbon Dioxide Anion Gap BUN Creatinine Est GFR ( Amer) Est GFR (Non-Af Amer) BUN/Creatinine Ratio Glucose Calcium Ammonia Tumor Marker AFP 1628 H 06/23/19 06/23/19 05:33 05:33 WBC RBC Hgb Hct MCV MCH MCHC RDW Plt Count MPV Neut % (Auto) Lymph % (Auto) [place] % (Auto) Eos % (Auto) Baso % (Auto) Absolute Neuts (auto) Absolute Lymphs (auto) Absolute Monos (auto) Absolute Eos (auto) Absolute Basos (auto) Absolute Nucleated RBC Nucleated RBC % INR (Anticoag Therapy) Sodium 134 L Potassium 3.5 Chloride 103 Carbon Dioxide 21 L Anion Gap 10 BUN 19 Creatinine 0.85 Est GFR ( Amer) 110.2 Est GFR (Non-Af Amer) 91.0 BUN/Creatinine Ratio 22.4 H Glucose 117 H Calcium 8.3 L Ammonia 56 H Tumor Marker AFP Microbiology and Other Data: Microbiology 06/23/19 00:20 Sputum Expectorated Gram Stain - Final 06/19/19 20:55 Blood Venous Aerobic Blood Culture - Preliminary No Growth Day 3 06/19/19 20:55 Blood Venous Anaerobic Blood Culture - Preliminary No Growth Day 3 06/19/19 20:55 Blood Venous Aerobic Blood Culture - Final Bacillus Sp (Non-Anthracis) 06/19/19 20:55 Blood Venous Anaerobic Blood Culture - Preliminary No Growth Day 3 06/20/19 03:50 Urine Legionella Urinary Antigen - Final Negative Legionella Antigen 06/20/19 03:50 Urine Streptococcus pneumoniae Ag Screen - Final Negative S. pneumo Antigen Assess/Plan/Problems-Billing Assessment: 64yom PMHx multiple myeloma, currently on chemo, HCV, liver cirrhosis, recent UGIB presents with SOB, found to have ptx due to pathological rib fx; R chest tube placed. - Patient Problems (1) Hepatic encephalopathy Comment: -Lactulose titrated to 3-4 BM per day -Continue rifaximin -Continue to monitor ammonia (2) Hospital-acquired pneumonia Comment: -SOB has improved; afebrile with improved leukocytosis -Likely HAP -BC x1 shows gram positive bacilli (likely contaminant) -ID consulted and notified; recommend d/c vanco (done) -Continue cefepime and add azithro -Urine for strep and legionella negative (3) Liver cirrhosis Comment: -Pt with mild ascites, hepatic encephalopathy; MELD-Na score: 24, therefore 14- 15% estimated 90-day mortality -Pt with b/l LE edema, jaundice, scleral icterus, and scrotal edema -h/o esophageal varices 2011 and May 2018, both s/p banding -LFTs trending down, but still elevated -Increase lasix to 40, spironolactone to 100 per GI -Continue nadolol -US liver from May shows echogenic material in portal vein, R liver lobe lesion -CT abd/pel with and without shows 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, portal vein thrombus -GI consulted, notified; thank you for recommendations -Albumin ordered -AFP ordered (4) Multiple myeloma Comment: - No neuropathy - Pt states he is on PO chemo and follows with Dr. Vasques - CT abd/pel shows multiple myeloma at T12 with epidural extension, mild spinal stenosis. If there is any neuropathy, MRI is indicated to assess severity of stenosis. - Dr. Vasques notified and consulted (5) Pneumothorax Comment: - R lung chest tube in place; pt with b/l pneumothorax likely from b/l rib fractures; no recommendation for L chest tube at this time - Pt reports improved SOB; breath sounds clear - Surgery following; thank you for recommendations - Planning for possible removal 06/23 (6) Esophageal varices in cirrhosis Comment: - Recent variceal bleed - Will need outpatient banding per GI (7) Full code status (8) DVT prophylaxis Comment: - Cont to hold chemo ppx as patient is high risk due to thrombocytopenia, hx of varciele bleeding, anemia, elevated INR in setting of liver disease Status and Disposition: Inpatient. Discharge when stable. Attending: Elvia Ovalle
--- NOTE | 2019-06-23 20:11 | PN ---
Progress Note - Progress Note Date of Service: 06/23/19 Note: Surgery Progress: S: No c/o re: breathing or chest pain. No change or increase in sc emphysema. O: Vital Signs - 8 hr 06/23/19 06/23/19 06/23/19 15:09 15:57 16:00 Temperature 98 F Pulse Rate 75 Respiratory 19 18 Rate Blood Pressure 109/52 (mmHg) O2 Sat by Pulse 94 94 Oximetry 06/23/19 19:35 Temperature 98.2 F Pulse Rate 73 Respiratory 18 Rate Blood Pressure 107/50 (mmHg) O2 Sat by Pulse 96 Oximetry Gen: lying in bed; appears comfortable; jaundiced Heart: reg Lungs: clear to ausc; no sig palp sc air Chest tube w/ minimal light serosang drainage. No air leak. Chest xray from 06/22 viewed personally and report reviewed. Reviewed verbally w/ Dr. Doran. A: bilateral pneumothoraces; s/p R chest tube placement w/ improvement, stable P: Right chest tube d/c'd; occlusive dsg placed; pt tali'd well. Nsg instructions given.
[2019-06-24] MEDS: Cefepime 2 GM in Dextrose(*) 2 GM/50 ML BAG IV SCH ×4 (00:11→23:53)
[2019-06-24 06:26] LABS: ABS Basophils 0.1 10^3/ul (0-0.2); ABS Eosinophils 0.5 10^3/ul (0-0.6); ABS Lymphocytes 0.6 10^3/ul (1.0-4.8); ABS Monocytes 0.9 10^3/ul (0-0.8); ABS Neutrophils 7.5 10^3/ul (1.5-7.7); Hematocrit 25 % (42-52); Hemoglobin 8.6 g/dL (14.0-18.0); Lymphocyte % 6.3 %; Mean Corpuscular HGB Conc 34 g/dL (31-36); Mean Corpuscular Hemoglobin 37 pg (27-31); Mean Corpuscular Volume 106 fL (80-94); Mean Platelet Volume 8.6 fL (7.4-10.4); Nucleated Red Blood Cells % 0.1; Platelet Count 66 10^3/uL (150-450); Red Blood Count 2.35 10^6 /uL (4.18-5.48); Red Cell Distribution Width 24 % (10-15); White Blood Count 9.6 10^3/uL (3.5-10.8)
[2019-06-24 06:35] LABS: Albumin 3.1 g/dL (3.2-5.2); Albumin/Globulin Ratio 1.3 (1-3); BUN/Creatinine Ratio 21.4 (8-20); Calcium 8.4 mg/dL (8.6-10.3); EGFR African American 93.5 (>60); EGFR Non-African American 77.2 (>60); Globulin 2.4 g/dL (2-4); Potassium 3.6 mmol/L (3.5-5.0); Total Protein 5.5 g/dL (6.4-8.9)
[2019-06-24 06:37] LABS: Total Bilirubin 12.2 mg/dL (0.2-1.0)
--- NOTE | 2019-06-24 08:25 | PN ---
Subjective Date of Service: 06/24/19 Interval History: Discussed case with Dr Elías Sheets plan for further imaging to evaluate thromus Spoke to Radiologist this morning who recommends starting with ultrasound to evaluate flow to further evaluate composition of thrombus then MRI w/wo if needed. Discussed case with Dr Pascual who will see patient this afternoon. Discussed elevated AFP with patient and plan for ultrasound and evaluation. Patient states understanding and requested that I call his partner. Attempted call x2 with no response. Harshil PRABHAKAR from Onc will contact partner. Patient reports right hip pain which is normal for him and is tolerable. Patient denies sob, cp, nausea, vomiting, urinary symptoms. Objective Active Medications: Acetaminophen (Tylenol Tab*) 650 mg PO Q6H PRN PRN Reason: MILD PAIN or TEMP > 100.4 Last Admin: 06/23/19 01:38 Dose: 650 mg Hydrocodone Bitart/Acetaminophen ([place] 5-325 Tab*) 1 tab PO Q4HR PRN PRN Reason: Moderate pain Last Admin: 06/23/19 15:57 Dose: 1 tab Acyclovir (Zovirax Tab*) 400 mg PO BID [facility] Last Admin: 06/23/19 21:44 Dose: 400 mg Azithromycin (Zithromax Tab*) 250 mg PO DAILY [facility] Stop: 06/27/19 08:59 Last Admin: 06/23/19 10:15 Dose: 250 mg Furosemide (Lasix Tab*) 40 mg PO DAILY [facility] Last Admin: 06/23/19 10:15 Dose: 40 mg Cefepime HCl (Maxipime 2 Gm In Dextrose Duplex (*)) 2 gm in 50 mls @ 100 mls/ hr IV Q8H [facility] Last Admin: 06/24/19 07:53 Dose: 100 mls/hr Albumin Human (Albumin Human 25%*) 25 gm in 100 mls @ 100 mls/hr IV BID [facility] Last Admin: 06/23/19 21:36 Dose: 100 mls/hr Lactulose (Lactulose*) 30 ml PO TID [facility] Last Admin: 06/23/19 21:44 Dose: Not Given Morphine Sulfate (Ms Contin(*)) 15 mg PO BID [facility] Last Admin: 06/23/19 21:43 Dose: 15 mg Morphine Sulfate (Morphine Inj (Syringe))*) 1 mg IV Q1H PRN PRN Reason: SEVERE PAIN Last Admin: 06/23/19 07:45 Dose: 1 mg Nadolol (Corgard Tab*) 20 mg PO DAILY [facility] Last Admin: 06/23/19 10:11 Dose: 20 mg Pantoprazole Sodium (Protonix Tab*) 40 mg PO DAILY [facility] Last Admin: 06/23/19 10:14 Dose: 40 mg Rifaximin (Xifaxan*) 550 mg PO BID [facility] Last Admin: 06/23/19 21:43 Dose: 550 mg Spironolactone (Aldactone Tab*) 100 mg PO DAILY [facility] Last Admin: 06/23/19 10:12 Dose: 100 mg Vital Signs - 8 hr 06/24/19 06/24/19 06/24/19 03:00 07:00 07:27 Temperature 98.2 F 98.5 F 98.5 F Pulse Rate 81 74 74 Respiratory 16 20 20 Rate Blood Pressure 111/48 107/53 107/53 (mmHg) O2 Sat by Pulse 94 93 93 Oximetry Oxygen Devices in Use Now: None Appearance: Comfortable, NAD Eyes: - - Scleral with icterus - Nutrition: Malnutrition Diagnosis/Plan Malnutrition Assessment by Registered Dietitian: Malnutrition Assessment Clinical Characteristics Chronic,Severe Malnutrition Assessment: Severe Muscle Wasting - Temporal muscles Criteria Severe Fat Pad Wasting - Orbital fat pads Inadequate Oral Intake - Consumed 75-90% single meal x3 days, w/ reported poor intake since CA dx x3 mos ago Malnutrition Assessment: Nutritional Supplementals/Nourishments - Pt Interventions amenable to trialing anything; will send Ensure Enlive (350kcal, 20g prot/serv) w/ B, L, and D daily to optimize kcal/prot intake; will monitor acceptance. Malnutrition Assessment: Goals 1) Adequate po intake to replete lean body mass and hydration status 2) Improve fluid/electrolyte balance w/ adequate po intake 3) Maintain bowel regularity w/ adequate po intake w/o development of diarrhea/constipation Result Diagrams: 06/24/19 06:01 06/24/19 06:01 Additional Lab and Data: Laboratory Results - last 24 hr 06/21/19 06/23/19 06/23/19 06:38 05:33 05:33 WBC 8.7 RBC 2.24 L Hgb 8.0 L Hct 24 L MCV 106 H MCH 36 H MCHC 34 RDW 24 H Plt Count 50 L MPV 8.9 Neut % (Auto) 81.2 Lymph % (Auto) 5.7 [place] % (Auto) 6.5 Eos % (Auto) 6.1 Baso % (Auto) 0.5 Absolute Neuts (auto) 7.1 Absolute Lymphs (auto) 0.5 L Absolute Monos (auto) 0.6 Absolute Eos (auto) 0.5 Absolute Basos (auto) 0.0 Absolute Nucleated RBC 0.0 Nucleated RBC % 0.0 INR (Anticoag Therapy) 1.78 H Sodium Potassium Chloride Carbon Dioxide Anion Gap BUN Creatinine Est GFR ( Amer) Est GFR (Non-Af Amer) BUN/Creatinine Ratio Glucose Calcium Ammonia Tumor Marker AFP 1628 H 06/23/19 06/23/19 05:33 05:33 WBC RBC Hgb Hct MCV MCH MCHC RDW Plt Count MPV Neut % (Auto) Lymph % (Auto) [place] % (Auto) Eos % (Auto) Baso % (Auto) Absolute Neuts (auto) Absolute Lymphs (auto) Absolute Monos (auto) Absolute Eos (auto) Absolute Basos (auto) Absolute Nucleated RBC Nucleated RBC % INR (Anticoag Therapy) Sodium 134 L Potassium 3.5 Chloride 103 Carbon Dioxide 21 L Anion Gap 10 BUN 19 Creatinine 0.85 Est GFR ( Amer) 110.2 Est GFR (Non-Af Amer) 91.0 BUN/Creatinine Ratio 22.4 H Glucose 117 H Calcium 8.3 L Ammonia 56 H Tumor Marker AFP Microbiology and Other Data: Microbiology 06/23/19 00:20 Sputum Expectorated Gram Stain - Final 06/19/19 20:55 Blood Venous Aerobic Blood Culture - Preliminary No Growth Day 3 06/19/19 20:55 Blood Venous Anaerobic Blood Culture - Preliminary No Growth Day 3 06/19/19 20:55 Blood Venous Aerobic Blood Culture - Final Bacillus Sp (Non-Anthracis) 06/19/19 20:55 Blood Venous Anaerobic Blood Culture - Preliminary No Growth Day 3 06/20/19 03:50 Urine Legionella Urinary Antigen - Final Negative Legionella Antigen 06/20/19 03:50 Urine Streptococcus pneumoniae Ag Screen - Final Negative S. pneumo Antigen Assess/Plan/Problems-Billing Assessment: 64yom PMHx multiple myeloma, currently on chemo, HCV, liver cirrhosis, recent UGIB presents with SOB, found to have ptx due to pathological rib fx; R chest tube placed. 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 Hopefully liver function will improve and patient will have more options for treatment. (2) Hepatic encephalopathy Comment: -Lactulose titrated to 3-4 BM per day -Continue rifaximin -Continue to monitor ammonia (3) Hospital-acquired pneumonia Comment: - Denies sob - Leukocytosis improved - Likely HAP - BC x1 shows gram positive bacilli (likely contaminant) - ID consulted; recommend d/c vanco (done) - Continue cefepime and add azithro - Urine for strep and legionella negative (4) Liver cirrhosis Comment: - Discussed diuresis with Harshil PRABHAKAR. Changed Lasix from PO to IV 40 mg daily. Cont Aldactone and Nadolol per GI - Pt with b/l LE edema, jaundice, scleral icterus, and scrotal edema - h/o esophageal varices 2011 and May 2018, both s/p banding. Plan for serial banding starting tomorrow. - CT abd/pel with and without shows 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, portal vein thrombus - GI and Oncology consulting - Cont Albumin per Oncology order - AFP elevated (5) Multiple myeloma Comment: - No neuropathy - Pt states he is on PO chemo and follows with Dr. Vasques - CT abd/pel shows multiple myeloma at T12 with epidural extension, mild spinal stenosis. If there is any neuropathy, MRI is indicated to assess severity of stenosis. - Oncology consulting (6) Pneumothorax Comment: - Chest tube removed today. - Admitted with b/l pneumothorax likely from b/l rib fractures; Had chest tube on right. No recommendation for L chest tube at this time - Denies SOB; breath sounds clear - Surgery following (7) Esophageal varices in cirrhosis Comment: - Recent variceal bleed - Plan for serial banding with EGD starting tomorrow (8) Full code status (9) DVT prophylaxis Comment: - Cont to hold chemo ppx as patient is high risk due to thrombocytopenia, hx of varciele bleeding, anemia, elevated INR in setting of liver disease Status and Disposition: Inpatient. Discharge when stable. May need CATARINA, therefore, PT and OT ordered. Attending: Elvia Ovalle
[2019-06-24] MEDS: RiFAXimin* 550 MG TAB PO SCH ×2 (08:49→21:21)
[2019-06-24] MEDS: Azithromycin TAB* 250 MG PO SCH (08:49)
[2019-06-24] MEDS: Spironolactone TAB* 25 MG PO SCH (08:49)
[2019-06-24] MEDS: Acyclovir* 400 MG TAB PO SCH ×2 (08:49→21:22)
[2019-06-24] MEDS: Furosemide TAB* 40 MG PO SCH (08:50)
[2019-06-24] MEDS: Pantoprazole TAB * 40 MG TAB PO SCH (08:50)
[2019-06-24] MEDS: Morphine TAB Extended Release (*) 15 MG TAB.ER PO SCH ×2 (08:52→21:22)
[2019-06-24] MEDS: Nadolol TAB* 40 MG PO SCH (08:53)
[2019-06-24] MEDS: Albumin Human 25%* 25 GM/100 ML BTL IV SCH ×2 (10:06→21:20)
--- NOTE | 2019-06-24 16:58 | PN ---
Progress Note - Progress Note Date of Service: 06/24/19 SOAP: Subjective: [No change in symptoms. Feels very weak.] Objective: [ Vital Signs: Temp Pulse Resp BP Pulse Ox 98.2 F 70 18 112/47 92 06/24/19 15:23 06/24/19 15:23 06/24/19 15:23 06/24/19 15:23 06/24/19 15:23 Acetaminophen (Tylenol Tab*) 650 mg PO Q6H PRN PRN Reason: MILD PAIN or TEMP > 100.4 Last Admin: 06/23/19 01:38 Dose: 650 mg Hydrocodone Bitart/Acetaminophen ([place] 5-325 Tab*) 1 tab PO Q4HR PRN PRN Reason: Moderate pain Last Admin: 06/23/19 15:57 Dose: 1 tab Acyclovir (Zovirax Tab*) 400 mg PO BID [facility] Last Admin: 06/24/19 08:49 Dose: 400 mg Azithromycin (Zithromax Tab*) 250 mg PO DAILY [facility] Stop: 06/27/19 08:59 Last Admin: 06/24/19 08:49 Dose: 250 mg Furosemide (Lasix Tab*) 40 mg PO DAILY [facility] Last Admin: 06/24/19 08:50 Dose: 40 mg Cefepime HCl (Maxipime 2 Gm In Dextrose Duplex (*)) 2 gm in 50 mls @ 100 mls/ hr IV Q8H [facility] Last Admin: 06/24/19 15:59 Dose: 100 mls/hr Albumin Human (Albumin Human 25%*) 25 gm in 100 mls @ 100 mls/hr IV BID [facility] Last Admin: 06/24/19 10:06 Dose: 100 mls/hr Lactulose (Lactulose*) 30 ml PO TID [facility] Last Admin: 06/24/19 14:07 Dose: 30 ml Morphine Sulfate (Ms Contin(*)) 15 mg PO BID [facility] Last Admin: 06/24/19 08:52 Dose: 15 mg Morphine Sulfate (Morphine Inj (Syringe))*) 1 mg IV Q1H PRN PRN Reason: SEVERE PAIN Last Admin: 06/23/19 07:45 Dose: 1 mg Nadolol (Corgard Tab*) 20 mg PO DAILY [facility] Last Admin: 06/24/19 08:53 Dose: 20 mg Pantoprazole Sodium (Protonix Tab*) 40 mg PO DAILY [facility] Last Admin: 06/24/19 08:50 Dose: 40 mg Rifaximin (Xifaxan*) 550 mg PO BID [facility] Last Admin: 06/24/19 08:49 Dose: 550 mg Spironolactone (Aldactone Tab*) 100 mg PO DAILY [facility] Last Admin: 06/24/19 08:49 Dose: 100 mg Laboratory Results - last 24 hr 06/24/19 06/24/19 06:01 06:01 WBC 9.6 RBC 2.35 L Hgb 8.6 L Hct 25 L MCV 106 H MCH 37 H MCHC 34 RDW 24 H Plt Count 66 L MPV 8.6 Neut % (Auto) 78.2 Lymph % (Auto) 6.3 [place] % (Auto) 9.1 Eos % (Auto) 5.0 Baso % (Auto) 1.4 Absolute Neuts (auto) 7.5 Absolute Lymphs (auto) 0.6 L Absolute Monos (auto) 0.9 H Absolute Eos (auto) 0.5 Absolute Basos (auto) 0.1 Absolute Nucleated RBC 0.0 Nucleated RBC % 0.1 Sodium 134 L Potassium 3.6 Chloride 104 Carbon Dioxide 23 Anion Gap 7 BUN 21 Creatinine 0.98 Est GFR ( Amer) 93.5 Est GFR (Non-Af Amer) 77.2 BUN/Creatinine Ratio 21.4 H Glucose 120 H Calcium 8.4 L Total Bilirubin 12.20 H* AST 125 H ALT 90 H Alkaline Phosphatase 259 H Total Protein 5.5 L Albumin 3.1 L Globulin 2.4 Albumin/Globulin Ratio 1.3 Exam: Gen: Chronically ill appearing HEENT: scleral icterus Abd: distended, nonTTP Skin: marked jaundice] Assessment: [64 yo male with multiple myeloma admitted with spontaneous pneumothorax and PNA and decompensated liver failure with a known h/o cirrhosis secondary to Hep C with a recent variceal bleed. Recent CT demonstrated a liver mass and tumor thrombus, highly suspicious of HCC given his history. AFP was sent earlier this week and returned today markedly elevated. He now has evidence of 2 malignancies and severe liver failure which significantly limits treatment options. Had a very long conversation today regarding goals of care and what options exist. The first issue to address is his liver failure and whether his acute decompensation is at least in part due to the portal vein thrombus. The biggest question regarding treatment is whether the portal vein thrombosis is a blood clot v. tumor thrombus. We have no options for treatment if this is tumor thrombus and limited options if a blood clot. Both his known esophageal varices and thrombocytopenia make anticoagulation very tenuous. Portal vein US completed today shows complete obstruction of the portal system and thrombus extending from the main portal vein, R and L portal veins and superior mesenteric vein. He had a portal vein US done 06/08 which showed no obstruction, but a possible echogenic focus. There certainly has been a significant record changer tester this period of time which favors a bland thrombus over rapid tumor progression over 2 weeks. Discussed case at length with Dr Elías Sheets who suggested we could attempt serial variceal banding followed by anticoagulation and serial imaging of the portal vein/following his liver function. If his liver function improves following successful treatment of the presumed bland thrombus he would have additional options for treatment of both the HCC and MM. This was discussed in detail with the patient and his partner, specifically outlining the low probability of success. Also spent time reviewing palliative options and home Hospice care. Klaus and his partner favored a more aggressive approach, regardless of the low likelihood of success.] Plan: [- EGD to eval esophageal varices and banding as indicated (this will likely require serial procedures) - NPO after midnight for EGD - plan to initiate anticoagulation following banding (assuming thrombocytopenia does not become prohibitive) - MRI liver for better characterization of liver tumor, but this certainly represents HCC given his AFP of 1628 Spent 60 min on this case, >50% spent face to face
[2019-06-24] MEDS: HYDROcodone/ACETAMIN 5-325 MG* 1 TAB PO PRN (18:27)
--- NOTE | 2019-06-24 21:28 | PN ---
Progress Note - Progress Note Date of Service: 06/24/19 Note: BRIEF GI NOTE S: - Patient and partner are understandably saddened and overwhelmed. They have decided that they would like to be as aggressive as possible as "what do we have to lose?" - Lower extremity edema improved - Abdominal distention/ascites stable to improved. - No dyspnea. Mild cough. O: Reviewed vitals. Vitals stable. Complete exam not performed. Patient comfortable appearing. Surrounded by friends and partner. Not encephalopathic.Mild/mod abdominal distention. Lower extremities wrapped in JORDY wraps -- slightly less edematous. Jaundice. Reviewed labs. Bilirubin ~12. AST/ALT and Alk phos remain stably elevated. INR ~ 1.8. AFP >1600. Reviewed updated Liver US w/ doppler. 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 No flow. Significant change as compared to 06/08 doppler US. Favored to be bland thrombus, per radiology. 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 Admitted w/ b/l pneumothoraces (2/2 pathologic rib fx) requiring chest tube, now removed. Also pneumonia (likely HCAP) on antibiotics. Now in decompensated chronic liver failure w/ MELD-Na in the mid . Liver US w/ doppler during hospitalization in May for variceal bleed noted echogenicity within portal vein as well as liver lesion. Follow-up CT abdomen/pelvis w/wo contrast demonstrates large thrombus in portal veins -> SMV as well as liver lesion highly suspicious for HCC. Follow-up AFP >1600 making likelihood of HCC > 95%. There has been concern that the portal vein thrombus may be tumor-related vs combination of tumor and bland thrombus. Updated liver US w/ doppler favors bland thrombus given significant increase in thrombus over short period of time. Very challenging situation. Unfortunately, patient is not candidate for therapy for HCC given current decompensated liver disease. Patient is not transplant candidate due to multiple myeloma. Anticoagulation usually not considered for chronic PVT or tumor thrombus; however, imaging is favoring acute bland thrombus. He is at high risk for anticoagulation given recent variceal bleed. Can consider serial banding to eradicate varices (may require several sessions over period of few weeks) followed by trial of anticoagulation. If liver function is able to improve, then treatment (or palliative) options for HCC could be discussed. - Continue to monitor CBC, CMP, INR daily - Continue Albumin 25% 25 grams IV BID (goal albumin >3.5) - Continue low sodium diet, elevate lower extremities, JORDY wraps to legs - Continue Xifaxan 550 mg BID and Lactulose (goal 3 bowel movements/day) - Recommend MRI liver w/wo contrast given some artifact seen in liver lesion on CT - NPO after MN. Will plan for EGD tmrw to reassess esophageal varices and band if medium/large varices present. GI will continue to follow. Ivette Corbett MD Gastroenterology
[2019-06-25] MEDS: Morphine INJ* 2 MG/ML 1 ML SYRINGE (TWO MG - NEW SYRINGE VERSION) IV PRN (05:24)
[2019-06-25] MEDS: Cefepime 2 GM in Dextrose(*) 2 GM/50 ML BAG IV SCH ×3 (07:18→23:15)
[2019-06-25 08:28] LABS: ABS Eosinophils 0.4 10^3/ul (0-0.6); ABS Lymphocytes 0.5 10^3/ul (1.0-4.8); ABS Monocytes 0.7 10^3/ul (0-0.8); ABS Neutrophils 5.6 10^3/ul (1.5-7.7); Eosinophil % 4.8 %; Hematocrit 23 % (42-52); Hemoglobin 7.9 g/dL (14.0-18.0); Lymphocyte % 7.2 %; Mean Corpuscular HGB Conc 34 g/dL (31-36); Mean Corpuscular Hemoglobin 36 pg (27-31); Mean Corpuscular Volume 106 fL (80-94); Mean Platelet Volume 8.6 fL (7.4-10.4); Platelet Count 71 10^3/uL (150-450); Red Blood Count 2.18 10^6 /uL (4.18-5.48); Red Cell Distribution Width 24 % (10-15); White Blood Count 7.3 10^3/uL (3.5-10.8)
[2019-06-25 08:33] LABS: INR 1.72 (0.82-1.09)
[2019-06-25] MEDS: Acyclovir* 400 MG TAB PO SCH ×2 (08:36→22:02)
[2019-06-25] MEDS: Morphine TAB Extended Release (*) 15 MG TAB.ER PO SCH ×2 (08:36→22:02)
[2019-06-25] MEDS: Pantoprazole TAB * 40 MG TAB PO SCH (08:37)
[2019-06-25] MEDS: Azithromycin TAB* 250 MG PO SCH (08:37)
[2019-06-25] MEDS: Spironolactone TAB* 25 MG PO SCH (08:37)
[2019-06-25] MEDS: RiFAXimin* 550 MG TAB PO SCH ×2 (08:37→22:02)
[2019-06-25] MEDS: Nadolol TAB* 40 MG PO SCH (08:37)
[2019-06-25] MEDS: Furosemide IV* 10 MG/ML VIAL (40 MG) IV SCH (08:39)
[2019-06-25 08:41] LABS: Albumin 3.1 g/dL (3.2-5.2); Albumin/Globulin Ratio 1.2 (1-3); BUN/Creatinine Ratio 22.5 (8-20); Calcium 8.5 mg/dL (8.6-10.3); EGFR African American 89.3 (>60); EGFR Non-African American 73.8 (>60); Globulin 2.5 g/dL (2-4); Indirect Bilirubin 4.8 mg/dL (0.3-1.0); Magnesium 2.3 mg/dL (1.9-2.7); Potassium 3.6 mmol/L (3.5-5.0); Total Bilirubin 11.4 mg/dL (0.2-1.0); Total Protein 5.6 g/dL (6.4-8.9)
[2019-06-25] MEDS: Albumin Human 25%* 25 GM/100 ML BTL IV SCH ×2 (08:51→21:53)
--- NOTE | 2019-06-25 11:23 | PN ---
Progress Note - Progress Note Date of Service: 06/25/19 SOAP: Subjective: [No changes overnight. Able to get up to chair with minimal assistance.] Objective: [ Vital Signs: Temp Pulse Resp BP Pulse Ox 99.1 F 69 16 101/44 94 06/25/19 11:05 06/25/19 11:05 06/25/19 11:05 06/25/19 11:05 06/25/19 11:05 Acetaminophen (Tylenol Tab*) 650 mg PO Q6H PRN PRN Reason: MILD PAIN or TEMP > 100.4 Last Admin: 06/23/19 01:38 Dose: 650 mg Hydrocodone Bitart/Acetaminophen ([place] 5-325 Tab*) 1 tab PO Q4HR PRN PRN Reason: Moderate pain Last Admin: 06/24/19 18:27 Dose: 1 tab Acyclovir (Zovirax Tab*) 400 mg PO BID [facility] Last Admin: 06/25/19 08:36 Dose: 400 mg Azithromycin (Zithromax Tab*) 250 mg PO DAILY [facility] Stop: 06/27/19 08:59 Last Admin: 06/25/19 08:37 Dose: 250 mg Furosemide (Lasix Iv*) 40 mg IV DAILY [facility] Last Admin: 06/25/19 08:39 Dose: 40 mg Cefepime HCl (Maxipime 2 Gm In Dextrose Duplex (*)) 2 gm in 50 mls @ 100 mls/ hr IV Q8H [facility] Last Admin: 06/25/19 07:18 Dose: 100 mls/hr Albumin Human (Albumin Human 25%*) 25 gm in 100 mls @ 100 mls/hr IV BID [facility] Last Admin: 06/25/19 08:51 Dose: 100 mls/hr Lactulose (Lactulose*) 30 ml PO TID [facility] Last Admin: 06/25/19 09:06 Dose: Not Given Morphine Sulfate (Ms Contin(*)) 15 mg PO BID [facility] Last Admin: 06/25/19 08:36 Dose: 15 mg Morphine Sulfate (Morphine Inj (Syringe))*) 1 mg IV Q1H PRN PRN Reason: SEVERE PAIN Last Admin: 06/25/19 05:24 Dose: 1 mg Nadolol (Corgard Tab*) 20 mg PO DAILY [facility] Last Admin: 06/25/19 08:37 Dose: 20 mg Pantoprazole Sodium (Protonix Tab*) 40 mg PO DAILY [facility] Last Admin: 06/25/19 08:37 Dose: 40 mg Rifaximin (Xifaxan*) 550 mg PO BID [facility] Last Admin: 06/25/19 08:37 Dose: 550 mg Spironolactone (Aldactone Tab*) 100 mg PO DAILY [facility] Last Admin: 06/25/19 08:37 Dose: 100 mg Laboratory Results - last 24 hr 06/25/19 06/25/19 06/25/19 08:15 08:15 08:15 WBC 7.3 RBC 2.18 L Hgb 7.9 L Hct 23 L MCV 106 H MCH 36 H MCHC 34 RDW 24 H Plt Count 71 L MPV 8.6 Neut % (Auto) 77.7 Lymph % (Auto) 7.2 [place] % (Auto) 9.9 Eos % (Auto) 4.8 Baso % (Auto) 0.4 Absolute Neuts (auto) 5.6 Absolute Lymphs (auto) 0.5 L Absolute Monos (auto) 0.7 Absolute Eos (auto) 0.4 Absolute Basos (auto) 0.0 Absolute Nucleated RBC 0.0 Nucleated RBC % 0.0 INR (Anticoag Therapy) 1.72 H Sodium 133 L Potassium 3.6 Chloride 103 Carbon Dioxide 22 Anion Gap 8 BUN 23 Creatinine 1.02 Est GFR ( Amer) 89.3 Est GFR (Non-Af Amer) 73.8 BUN/Creatinine Ratio 22.5 H Glucose 127 H Calcium 8.5 L Magnesium 2.3 Total Bilirubin 11.40 H Direct Bilirubin 6.60 H Indirect Bilirubin 4.8 H AST 163 H ALT 93 H Alkaline Phosphatase 312 H Ammonia Total Protein 5.6 L Albumin 3.1 L Globulin 2.5 Albumin/Globulin Ratio 1.2 06/25/19 08:15 WBC RBC Hgb Hct MCV MCH MCHC RDW Plt Count MPV Neut % (Auto) Lymph % (Auto) [place] % (Auto) Eos % (Auto) Baso % (Auto) Absolute Neuts (auto) Absolute Lymphs (auto) Absolute Monos (auto) Absolute Eos (auto) Absolute Basos (auto) Absolute Nucleated RBC Nucleated RBC % INR (Anticoag Therapy) Sodium Potassium Chloride Carbon Dioxide Anion Gap BUN Creatinine Est GFR ( Amer) Est GFR (Non-Af Amer) BUN/Creatinine Ratio Glucose Calcium Magnesium Total Bilirubin Direct Bilirubin Indirect Bilirubin AST ALT Alkaline Phosphatase Ammonia 47 Total Protein Albumin Globulin Albumin/Globulin Ratio Exam: Gen: Chronically ill appearing HEENT: scleral icterus CV: RRR, no m/r/g Resp: CTA, no w/c/r Abd: distended, nonTTP Skin: marked jaundice Ext: 1+ edema bilaterally with JORDY wraps in place Assessment: [64 yo male with multiple myeloma admitted with spontaneous pneumothorax and PNA and decompensated liver failure with a known h/o cirrhosis secondary to Hep C with a recent variceal bleed. Recent CT demonstrated a liver mass and tumor thrombus now with elevated AFP c/w HCC. After long discussion with patient and partner decided to pursue a more aggressive treatment approach starting with addressing his decompensated liver failure by attempting anticoagulation following banding of esophageal varices. Plan: [- EGD to eval esophageal varices and banding as indicated (this will likely require serial procedures) pending for later today - plan to initiate anticoagulation following banding (assuming thrombocytopenia does not become prohibitive) - MRI liver for better characterization of liver tumor - pending for later today - PT/OT consultation to help with discharge planning Dispo: plan for dc home v [facility] in the next 1-2 days
[2019-06-25] MEDS ORDERED: Gadoteridol* (CONTRAST) 279.3 MG/ML 10 ML IV ONE (12:38)
[2019-06-25] MEDS ORDERED: Gadoteridol* (CONTRAST) 279.3 MG/ML 10 ML IV SCH (13:00)
[2019-06-25] MEDS ORDERED: fentaNYL* 50 MCG/ML 2 ML VIAL (100 MCG VIAL) ONE (14:34)
[2019-06-25] MEDS ORDERED: Midazolam* 1 MG/ML 10 ML VIAL (10 MG) ONE (14:34)
--- NOTE | 2019-06-25 16:33 | PRO ---
PROCEDURE REPORT: DATE OF PROCEDURE: 06/25/19 - inpatient, room SSU 343-02 PROCEDURE: EGD. INDICATION: History of varices, reevaluation due to the fact that the patient may require anticoagulation. MEDICATIONS GIVEN: 4 mg IV Versed. DESCRIPTION OF PROCEDURE: After the EGD procedure, including the risks, benefits, and alternatives, not limited to perforation, surgery, and/or were explained to the patient, written consent was then obtained, IV medication was given, and a bite block was placed between the teeth. An Olympus gastroscope was then inserted into the patient's mouth, advanced down the esophagus, into the stomach, into the distal duodenum. In the esophagus, there were 3 columns of grade 2 to 3 esophageal varices. As I was withdrawing the scope from the stomach back into the esophagus, there was 1 column that had a small white nipple on it. As the scope brushed by this, the nipple did burst and bled fairly actively. I then immediately withdrew the scope and put the cigar head holer on the tip. The cigar head holer was reintroduced into the patient's mouth down the esophagus. I was able to find the bleeding site and immediately deployed a band, which stopped the bleeding. Three other bands were placed on 3 other columns of esophageal varices. The patient tolerated the procedure well and was returned to his hospital room in stable condition. IMPRESSION: 1. Complete upper endoscopy into the distal duodenum with esophageal variceal band ligation for cessation of bleeding. 2. Three columns grade 2 to 3 esophageal varices, status post 3 bands, white nipple, status post 1 band. 3. I am concerned about how friable these esophageal varices are, the patient and his team are considering anticoagulation; however, I think that this is a high risk and should be discussed further. [id number]/[facility] #: [id number] MTDD
[2019-06-26] MEDS: Morphine INJ* 2 MG/ML 1 ML SYRINGE (TWO MG - NEW SYRINGE VERSION) IV PRN (00:04)
[2019-06-26] MEDS: HYDROcodone/ACETAMIN 5-325 MG* 1 TAB PO PRN ×4 (03:41→23:17)
[2019-06-26] MEDS: Cefepime 2 GM in Dextrose(*) 2 GM/50 ML BAG IV SCH ×3 (09:28→23:20)
[2019-06-26] MEDS: Spironolactone TAB* 25 MG PO SCH (09:30)
[2019-06-26] MEDS: Acyclovir* 400 MG TAB PO SCH ×2 (09:31→22:44)
[2019-06-26] MEDS: Nadolol TAB* 40 MG PO SCH (09:31)
[2019-06-26] MEDS: Azithromycin TAB* 250 MG PO SCH (09:32)
[2019-06-26] MEDS: Pantoprazole TAB * 40 MG TAB PO SCH (09:33)
[2019-06-26] MEDS: Furosemide IV* 10 MG/ML VIAL (40 MG) IV SCH (09:33)
[2019-06-26] MEDS: RiFAXimin* 550 MG TAB PO SCH ×2 (09:33→22:50)
[2019-06-26] MEDS: Albumin Human 25%* 25 GM/100 ML BTL IV SCH ×2 (10:26→21:53)
--- NOTE | 2019-06-26 10:59 | PN ---
Progress Note - Progress Note Date of Service: 06/26/19 SOAP: Subjective: [EGD yesterday showed multiple varices that were quite friable and began to bleed at the scope passed by. He was successfully banded, but Dr Decker has questioned the likelihood of success of serial banding. No changes in symptoms. He got up to a chair with PT today.] Objective: [ Vital Signs: Temp Pulse Resp BP Pulse Ox 98.4 F 65 16 84/41 96 06/26/19 10:54 06/26/19 10:54 06/26/19 10:54 06/26/19 10:54 06/26/19 10:54 Acetaminophen (Tylenol Tab*) 650 mg PO Q6H PRN PRN Reason: MILD PAIN or TEMP > 100.4 Last Admin: 06/23/19 01:38 Dose: 650 mg Hydrocodone Bitart/Acetaminophen ([place] 5-325 Tab*) 1 tab PO Q4HR PRN PRN Reason: Moderate pain Last Admin: 06/26/19 03:41 Dose: 1 tab Acyclovir (Zovirax Tab*) 400 mg PO BID [facility] Last Admin: 06/26/19 09:31 Dose: 400 mg Azithromycin (Zithromax Tab*) 250 mg PO DAILY [facility] Stop: 06/27/19 08:59 Last Admin: 06/26/19 09:32 Dose: 250 mg Furosemide (Lasix Iv*) 40 mg IV DAILY [facility] Last Admin: 06/26/19 09:33 Dose: 40 mg Gadoteridol (Prohance* (Contrast)) 15 ml IV ONCE [facility] Stop: 06/27/19 12:37 Cefepime HCl (Maxipime 2 Gm In Dextrose Duplex (*)) 2 gm in 50 mls @ 100 mls/ hr IV Q8H [facility] Last Admin: 06/26/19 09:28 Dose: 100 mls/hr Albumin Human (Albumin Human 25%*) 25 gm in 100 mls @ 100 mls/hr IV BID [facility] Last Admin: 06/26/19 10:26 Dose: 100 mls/hr Lactulose (Lactulose*) 30 ml PO TID [facility] Last Admin: 06/26/19 09:36 Dose: 30 ml Morphine Sulfate (Ms Contin(*)) 15 mg PO BID [facility] Last Admin: 06/25/19 22:02 Dose: 15 mg Morphine Sulfate (Morphine Inj (Syringe))*) 1 mg IV Q1H PRN PRN Reason: SEVERE PAIN Last Admin: 06/26/19 00:04 Dose: 1 mg Nadolol (Corgard Tab*) 20 mg PO DAILY [facility] Last Admin: 06/26/19 09:31 Dose: 20 mg Pantoprazole Sodium (Protonix Tab*) 40 mg PO DAILY [facility] Last Admin: 06/26/19 09:33 Dose: 40 mg Rifaximin (Xifaxan*) 550 mg PO BID [facility] Last Admin: 06/26/19 09:33 Dose: 550 mg Spironolactone (Aldactone Tab*) 100 mg PO DAILY [facility] Last Admin: 06/26/19 09:30 Dose: 100 mg Exam: Gen: Chronically ill appearing HEENT: scleral icterus CV: RRR, no m/r/g Resp: CTA, no w/c/r Abd: distended, nonTTP Skin: marked jaundice Ext: trace to 1+ edema bilaterally with JORDY wraps in place Assessment: [64 yo male with multiple myeloma admitted with spontaneous pneumothorax and PNA and decompensated liver failure with a known h/o cirrhosis secondary to Hep C with a recent variceal bleed. Recent CT demonstrated a liver mass and tumor thrombus now with elevated AFP c/w HCC. After long discussion with patient and partner decided to pursue a more aggressive treatment approach starting with addressing his decompensated liver failure by attempting anticoagulation following banding of esophageal varices. Plan: [1. PTX - chest tube has been out for several days without recurrent respiratory symptoms 2. Liver failure, decompensated secondary to cirrhosis with h/o treated Hep C - EGD 06/25 demonstrated large, friable varices s/p successful banding but remains very high risk for additional bleeding - plan for repeat EGD 07/03 (likely as an outpt) - plan was to initiate anticoagulation following banding, but the likelihood of success seems to be waning based on yesterday's EGD findings 3. 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 MM - treatment on hold due to decompensated liver failure - hopeful to readdress treatment options if liver function recovers Dispo: pt is motivated to get home, but will require additional equipment/home modifications to be successful - hopeful for dc in ~2d with the assistance of case management
--- NOTE | 2019-06-26 11:22 | PN ---
Progress Note - Progress Note Date of Service: 06/26/19 Note: Surgery Progress: S: no c/o re: chest pain or SOB. It has been 72 hr since removal of the R chest tube. O: Vital Signs - 8 hr 06/26/19 06/26/19 06/26/19 03:39 03:41 05:46 Temperature 98.5 F Pulse Rate 63 Respiratory 16 16 15 Rate Blood Pressure 99/48 (mmHg) O2 Sat by Pulse 99 Oximetry 06/26/19 06/26/19 06/26/19 05:47 07:00 08:00 Temperature 97.8 F Pulse Rate 73 Respiratory 15 18 16 Rate Blood Pressure 93/39 (mmHg) O2 Sat by Pulse 100 Oximetry 06/26/19 06/26/19 10:14 10:54 Temperature 98.6 F 98.4 F Pulse Rate 70 65 Respiratory 18 16 Rate Blood Pressure 108/40 84/41 (mmHg) O2 Sat by Pulse 95 96 Oximetry R chest tube site dressing clean,dry and intact. No crepitus bilat. A/P: s/p bilateral spon ptx's, Right side treated w/ chest tube, since removed. As he is likely to be healing very slowly given his comorbidities, I elected to leave the current dressing in place at least another 24- 48 hr. Thereafter a smaller occlusive dressing (abx ointment, gauze, Tegaderm) can be placed for another 48 - 72 hr, then the wound could be left open. If he is still here Saturday, one of our team will change the dressing. Discussed w/ PA Harshil Cordon.
[2019-06-26] MEDS: Morphine TAB Extended Release (*) 15 MG TAB.ER PO SCH ×2 (12:21→22:44)
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
[2019-06-27] MEDS: HYDROcodone/ACETAMIN 5-325 MG* 1 TAB PO PRN (04:05)
[2019-06-27 06:15] LABS: ABS Eosinophils 0.5 10^3/ul (0-0.6); ABS Lymphocytes 0.5 10^3/ul (1.0-4.8); ABS Monocytes 0.8 10^3/ul (0-0.8); ABS Neutrophils 5.8 10^3/ul (1.5-7.7); Eosinophil % 6.3 %; Hematocrit 23 % (42-52); Hemoglobin 7.8 g/dL (14.0-18.0); Lymphocyte % 7.1 %; Mean Corpuscular HGB Conc 34 g/dL (31-36); Mean Corpuscular Hemoglobin 37 pg (27-31); Mean Corpuscular Volume 107 fL (80-94); Mean Platelet Volume 8.9 fL (7.4-10.4); Platelet Count 92 10^3/uL (150-450); Red Blood Count 2.11 10^6 /uL (4.18-5.48); Red Cell Distribution Width 24 % (10-15); White Blood Count 7.6 10^3/uL (3.5-10.8)
[2019-06-27 06:31] LABS: Albumin 3.1 g/dL (3.2-5.2); Albumin/Globulin Ratio 1.2 (1-3); BUN/Creatinine Ratio 24.1 (8-20); Calcium 8.7 mg/dL (8.6-10.3); EGFR African American 65.7 (>60); EGFR Non-African American 54.3 (>60); Globulin 2.6 g/dL (2-4); Potassium 3.6 mmol/L (3.5-5.0); Total Bilirubin 9.3 mg/dL (0.2-1.0); Total Protein 5.7 g/dL (6.4-8.9)
[2019-06-27] MEDS: Cefepime 2 GM in Dextrose(*) 2 GM/50 ML BAG IV SCH ×2 (08:07→15:48)
[2019-06-27] MEDS: Spironolactone TAB* 25 MG PO SCH (08:07)
[2019-06-27] MEDS: Morphine TAB Extended Release (*) 15 MG TAB.ER PO SCH ×2 (08:07→21:29)
[2019-06-27] MEDS: Pantoprazole TAB * 40 MG TAB PO SCH (08:08)
[2019-06-27] MEDS: Acyclovir* 400 MG TAB PO SCH ×2 (08:40→21:30)
[2019-06-27] MEDS: Albumin Human 25%* 25 GM/100 ML BTL IV SCH ×2 (09:40→21:26)
[2019-06-27] MEDS: Furosemide IV* 10 MG/ML VIAL (40 MG) IV SCH (10:55)
[2019-06-27] MEDS: Nadolol TAB* 40 MG PO SCH (10:59)
[2019-06-27] MEDS: RiFAXimin* 550 MG TAB PO SCH ×2 (10:59→21:30)
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
[2019-06-28] MEDS: Cefepime 2 GM in Dextrose(*) 2 GM/50 ML BAG IV SCH ×4 (00:11→23:47)
[2019-06-28] MEDS: HYDROcodone/ACETAMIN 5-325 MG* 1 TAB PO PRN ×2 (04:08→11:35)
[2019-06-28 06:00] LABS: ABS Eosinophils 0.5 10^3/ul (0-0.6); ABS Lymphocytes 0.5 10^3/ul (1.0-4.8); ABS Monocytes 0.6 10^3/ul (0-0.8); Eosinophil % 7.2 %; Hematocrit 23 % (42-52); Hemoglobin 7.4 g/dL (14.0-18.0); Lymphocyte % 7.7 %; Mean Corpuscular HGB Conc 32 g/dL (31-36); Mean Corpuscular Hemoglobin 36 pg (27-31); Mean Corpuscular Volume 113 fL (80-94); Mean Platelet Volume 9.5 fL (7.4-10.4); Platelet Count 101 10^3/uL (150-450); Red Blood Count 2.05 10^6 /uL (4.18-5.48); Red Cell Distribution Width 24 % (10-15); White Blood Count 6.7 10^3/uL (3.5-10.8)
[2019-06-28 06:16] LABS: ALT 105 U/L (7-52); Alkaline Phosphatase 317 U/L (34-104); BUN/Creatinine Ratio 23.9 (8-20); Blood Urea Nitrogen 39 mg/dL (6-24); CO2 Carbon Dioxide 19 mmol/L (22-32); Calcium 9.2 mg/dL (8.6-10.3); Chloride 100 mmol/L (101-111); EGFR Non-African American 42.9 (>60); Glucose 119 mg/dL (70-100); Magnesium 2.5 mg/dL (1.9-2.7); Phosphorus 2.4 mg/dL (2.5-5.0); Sodium 129 mmol/L (135-145)
[2019-06-28 06:40] LABS: Anion Gap 10 mmol/L (2-11)
[2019-06-28] MEDS: Acyclovir* 400 MG TAB PO SCH ×2 (09:27→22:07)
[2019-06-28] MEDS: Nadolol TAB* 40 MG PO SCH (09:28)
[2019-06-28] MEDS: Spironolactone TAB* 25 MG PO SCH (09:28)
[2019-06-28] MEDS: Pantoprazole TAB * 40 MG TAB PO SCH (09:28)
[2019-06-28] MEDS: Morphine TAB Extended Release (*) 15 MG TAB.ER PO SCH ×2 (09:28→22:07)
[2019-06-28] MEDS: RiFAXimin* 550 MG TAB PO SCH ×2 (09:29→22:07)
[2019-06-28] MEDS: Albumin Human 25%* 25 GM/100 ML BTL IV SCH ×2 (09:39→22:04)
[2019-06-28] MEDS: Furosemide IV* 10 MG/ML VIAL (40 MG) IV SCH (10:40)
[2019-06-28] MEDS: Furosemide TAB* 20 MG PO SCH (12:41)
--- NOTE | 2019-06-28 12:47 | PN ---
Progress Note - Progress Note Date of Service: 06/28/19 SOAP: Subjective: [No changes overnight.] Objective: [ Vital Signs: Temp Pulse Resp BP Pulse Ox 98.5 F 84 18 98/47 98 06/28/19 10:06 06/28/19 10:06 06/28/19 11:35 06/28/19 10:06 06/28/19 10:06 Acetaminophen (Tylenol Tab*) 650 mg PO Q6H PRN PRN Reason: MILD PAIN or TEMP > 100.4 Last Admin: 06/23/19 01:38 Dose: 650 mg Hydrocodone Bitart/Acetaminophen (Gay 5-325 Tab*) 1 tab PO Q4HR PRN PRN Reason: Moderate pain Last Admin: 06/28/19 11:35 Dose: 1 tab Acyclovir (Zovirax Tab*) 400 mg PO BID [facility] Last Admin: 06/28/19 09:27 Dose: 400 mg Furosemide (Lasix Tab*) 20 mg PO DAILY [facility] Last Admin: 06/28/19 12:41 Dose: 20 mg Cefepime HCl (Maxipime 2 Gm In Dextrose Duplex (*)) 2 gm in 50 mls @ 100 mls/ hr IV Q8H [facility] Last Admin: 06/28/19 07:14 Dose: 100 mls/hr Albumin Human (Albumin Human 25%*) 25 gm in 100 mls @ 100 mls/hr IV BID [facility] Last Admin: 06/28/19 09:39 Dose: 100 mls/hr Lactulose (Lactulose*) 30 ml PO TID [facility] Last Admin: 06/28/19 09:29 Dose: 30 ml Morphine Sulfate (Ms Contin(*)) 15 mg PO BID [facility] Last Admin: 06/28/19 09:28 Dose: 15 mg Nadolol (Corgard Tab*) 20 mg PO DAILY [facility] Last Admin: 06/28/19 09:28 Dose: 20 mg Pantoprazole Sodium (Protonix Tab*) 40 mg PO DAILY [facility] Last Admin: 06/28/19 09:28 Dose: 40 mg Rifaximin (Xifaxan*) 550 mg PO BID [facility] Last Admin: 06/28/19 09:29 Dose: 550 mg Spironolactone (Aldactone Tab*) 100 mg PO DAILY [facility] Last Admin: 06/28/19 09:28 Dose: 100 mg Laboratory Results - last 24 hr 06/28/19 06/28/19 05:37 05:37 WBC 6.7 RBC 2.05 L Hgb 7.4 L Hct 23 L MCV 113 H MCH 36 H MCHC 32 RDW 24 H Plt Count 101 L MPV 9.5 Neut % (Auto) 75.4 Lymph % (Auto) 7.7 Ross % (Auto) 9.5 Eos % (Auto) 7.2 Baso % (Auto) 0.2 Absolute Neuts (auto) 5.0 Absolute Lymphs (auto) 0.5 L Absolute Monos (auto) 0.6 Absolute Eos (auto) 0.5 Absolute Basos (auto) 0.0 Absolute Nucleated RBC 0.0 Nucleated RBC % 0.0 Sodium 129 L Potassium TNP Chloride 100 L Carbon Dioxide 19 L Anion Gap 10 BUN 39 H Creatinine 1.63 H Est GFR ( Amer) 52.0 Est GFR (Non-Af Amer) 42.9 BUN/Creatinine Ratio 23.9 H Glucose 119 H Calcium 9.2 Phosphorus 2.4 L Magnesium 2.5 Total Bilirubin 8.80 H AST TNP ALT 105 H Alkaline Phosphatase 317 H Total Protein 6.0 L Albumin 3.0 L Globulin 3.0 Albumin/Globulin Ratio 1.0 Exam: Gen: Chronically ill appearing HEENT: scleral icterus CV: RRR, no m/r/g Resp: CTA, no w/c/r Abd: distended, nonTTP Skin: marked jaundice Ext: diffuse anasarca,1-2+ edema bilaterally with JORDY wraps in place, UE edema also ~2+ Assessment: [64 yo male with multiple myeloma admitted with spontaneous pneumothorax and PNA and decompensated liver failure with a known h/o cirrhosis secondary to Hep C with a recent variceal bleed. Recent CT demonstrated a liver mass and tumor thrombus now with elevated AFP c/w HCC. After long discussion with patient and partner decided to pursue a more aggressive treatment approach starting with addressing his decompensated liver failure by attempting anticoagulation following banding of esophageal varices. Plan: [1. PTX - chest tube has been out for several days without recurrent respiratory symptoms - surgery's input is appreciated 2. Liver failure, decompensated secondary to cirrhosis with h/o treated Hep C - EGD 06/25 demonstrated large, friable varices s/p successful banding but remains very high risk for additional bleeding - plan for repeat EGD 07/03 (likely as an outpt) - plan was to initiate anticoagulation following banding, but the likelihood of success seems to be waning based on recent EGD findings 3. MONSE - noted rise in Cr over last 48h - he remains diffusely edematous but was initially responding to albumin/lasix - rise in Cr is concerning for development of hepatorenal syndrome - will cont albumin, but back off on diuretics (stopped IV furosemide and started oral furosemide) 3. 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 MM - treatment on hold due to decompensated liver failure - hopeful to readdress treatment options if liver function recovers 5. DVT prophylaxis - chemical prophylaxis Dispo: after numerous discussions over the last several days, pt agrees that [facility] is the most realistic plan for dc from the hospital. Will ask CM team to initiate referrals to local rehab facilities. EGD planned 07/03, which can be completed as an outpatient
[2019-06-29 05:24] LABS: Hematocrit 21 % (42-52); Hemoglobin 7.1 g/dL (14.0-18.0); Mean Corpuscular HGB Conc 34 g/dL (31-36); Mean Corpuscular Hemoglobin 37 pg (27-31); Mean Corpuscular Volume 107 fL (80-94); Mean Platelet Volume 9.4 fL (7.4-10.4); Platelet Count 79 10^3/uL (150-450); Red Blood Count 1.92 10^6 /uL (4.18-5.48); Red Cell Distribution Width 24 % (10-15); White Blood Count 5.4 10^3/uL (3.5-10.8)
[2019-06-29 05:25] LABS: INR 1.67 (0.82-1.09)
[2019-06-29 05:41] LABS: Albumin 3.5 g/dL (3.2-5.2); Albumin/Globulin Ratio 1.3 (1-3); BUN/Creatinine Ratio 22.2 (8-20); Calcium 9.5 mg/dL (8.6-10.3); EGFR African American 40.3 (>60); EGFR Non-African American 33.3 (>60); Globulin 2.6 g/dL (2-4); Potassium 4.1 mmol/L (3.5-5.0); Total Bilirubin 7.7 mg/dL (0.2-1.0); Total Protein 6.1 g/dL (6.4-8.9)
[2019-06-29] MEDS: Cefepime 2 GM in Dextrose(*) 2 GM/50 ML BAG IV SCH ×3 (08:17→22:39)
[2019-06-29] MEDS: Nadolol TAB* 40 MG PO SCH (08:18)
[2019-06-29] MEDS: RiFAXimin* 550 MG TAB PO SCH ×2 (08:18→20:58)
[2019-06-29] MEDS: Spironolactone TAB* 25 MG PO SCH (08:18)
[2019-06-29] MEDS: Acyclovir* 400 MG TAB PO SCH ×2 (08:18→20:58)
[2019-06-29] MEDS: Pantoprazole TAB * 40 MG TAB PO SCH (08:26)
[2019-06-29] MEDS: Furosemide TAB* 20 MG PO SCH (08:26)
[2019-06-29] MEDS ORDERED: Furosemide TAB* 20 MG PO SCH (09:00)
[2019-06-29] MEDS: Morphine TAB Extended Release (*) 15 MG TAB.ER PO SCH ×2 (09:10→20:58)
--- NOTE | 2019-06-29 10:05 | PN ---
Progress Note - Progress Note Date of Service: 06/29/19 SOAP: Subjective:no dyspnea or chest pain [] Objective: Vital Signs Temp 99 F 06/29/19 07:25 Pulse 82 06/29/19 07:25 Resp 16 06/29/19 09:10 BP 98/43 06/29/19 07:25 Pulse Ox 95 06/29/19 07:25 Intake & Output 06/28/19 06/29/19 06/29/19 18:59 06:59 18:59 Intake Total 435 120 Output Total 100 250 Balance 335 -130 Intake: IV Fluids 60 NS (0.9%) 60 IVPB 155 ABX - CEFEPIME 50 ALBUMIN 105 Oral 220 120 Output: Urine 100 250 Other: # Bowel Movements 0 Right anterior chest exit site of previous chest tube well healed [] Assessment:bilat pneumothoraces,s/p placement and removal of R chest tube [] Plan:occlusive dsg removed from exit site,no need for replacement of dressing []
[2019-06-29] MEDS: Albumin Human 25%* 25 GM/100 ML BTL IV SCH ×2 (10:23→20:57)
--- NOTE | 2019-06-29 11:01 | PN ---
Progress Note - Progress Note Date of Service: 06/29/19 SOAP: Subjective: []Son and brother in room. More sleepy today. No pain. Medications: Acetaminophen (Tylenol Tab*) 650 mg PO Q6H PRN PRN Reason: MILD PAIN or TEMP > 100.4 Last Admin: 06/23/19 01:38 Dose: 650 mg Hydrocodone Bitart/Acetaminophen ([place] 5-325 Tab*) 1 tab PO Q4HR PRN PRN Reason: Moderate pain Last Admin: 06/28/19 11:35 Dose: 1 tab Acyclovir (Zovirax Tab*) 400 mg PO BID [facility] Last Admin: 06/29/19 08:18 Dose: 400 mg Furosemide (Lasix Tab*) 20 mg PO DAILY [facility] Last Admin: 06/29/19 08:26 Dose: 20 mg Cefepime HCl (Maxipime 2 Gm In Dextrose Duplex (*)) 2 gm in 50 mls @ 100 mls/ hr IV Q8H [facility] Last Admin: 06/29/19 08:17 Dose: 100 mls/hr Albumin Human (Albumin Human 25%*) 25 gm in 100 mls @ 100 mls/hr IV BID [facility] Last Admin: 06/29/19 10:23 Dose: 100 mls/hr Lactulose (Lactulose*) 30 ml PO TID [facility] Last Admin: 06/29/19 08:25 Dose: 30 ml Morphine Sulfate (Ms Contin(*)) 15 mg PO BID [facility] Last Admin: 06/29/19 09:10 Dose: 15 mg Nadolol (Corgard Tab*) 20 mg PO DAILY [facility] Last Admin: 06/29/19 08:18 Dose: 20 mg Pantoprazole Sodium (Protonix Tab*) 40 mg PO DAILY [facility] Last Admin: 06/29/19 08:26 Dose: 40 mg Rifaximin (Xifaxan*) 550 mg PO BID [facility] Last Admin: 06/29/19 08:18 Dose: 550 mg Spironolactone (Aldactone Tab*) 100 mg PO DAILY [facility] Last Admin: 06/29/19 08:18 Dose: 100 mg Objective: [] Vital Signs Temp Pulse Resp BP Pulse Ox 98.3 F 72 18 103/50 95 06/29/19 10:48 06/29/19 10:48 06/29/19 10:48 06/29/19 10:48 06/29/19 10:48 Alert and oriented, lethargic HRI, no murmur noted LS dim. with poor resp. effort +BS, enlarged liver Jaundice with icterus Bilat. LE edema, wraps in place Laboratory Results - last 24 hr 06/29/19 06/29/19 06/29/19 05:11 05:11 05:11 WBC 5.4 RBC 1.92 L Hgb 7.1 L Hct 21 L MCV 107 H MCH 37 H MCHC 34 RDW 24 H Plt Count 79 L MPV 9.4 INR (Anticoag Therapy) 1.67 H Sodium 130 L Potassium 4.1 Chloride 100 L Carbon Dioxide 22 Anion Gap 8 BUN 45 H Creatinine 2.03 H Est GFR ( Amer) 40.3 Est GFR (Non-Af Amer) 33.3 BUN/Creatinine Ratio 22.2 H Glucose 130 H Calcium 9.5 Total Bilirubin 7.70 H AST 176 H ALT 99 H Alkaline Phosphatase 305 H Ammonia Total Protein 6.1 L Albumin 3.5 Globulin 2.6 Albumin/Globulin Ratio 1.3 06/29/19 05:11 WBC RBC Hgb Hct MCV MCH MCHC RDW Plt Count MPV INR (Anticoag Therapy) Sodium Potassium Chloride Carbon Dioxide Anion Gap BUN Creatinine Est GFR ( Amer) Est GFR (Non-Af Amer) BUN/Creatinine Ratio Glucose Calcium Total Bilirubin AST ALT Alkaline Phosphatase Ammonia 59 H Total Protein Albumin Globulin Albumin/Globulin Ratio Assessment: []64 yo male with multiple myeloma admitted with spontaneous pneumothorax and PNA and decompensated liver failure with a known h/o cirrhosis secondary to Hep C with a recent variceal bleed. CT findings with knew liver mass, tumor thrombus and levated AFP c/w HCC. Following multiple discussions regarding plan of care and patient goals decision to attempt serial banding of esophageal varices in order to attempt anticoagulation so as to improve liver function and work-up the mass for possible treatment. Unfortunately I am concerned this course is futile with persistent evidence of slow bleeding and now rise in Cr and elevated ammonia. We discussed this at length and at this time the patient and family wish to focus on getting to 07/03 repeat EGD though they are aware he can transition to comfort measures at any time. Plan: []1. PTX: resolved 2. Liver failure, decompensated secondary to cirrhosis with h/o treated Hep C and now new liver mass with thrombus - EGD 06/25 demonstrated large, friable varices s/p successful banding however case discussed with Dr. Decker who agrees he likely has continued bleeding and is too high risk to warrant repeat prior to 07/03 - plan for repeat EGD 07/03 (can occur outpt) - plan was to initiate anticoagulation following banding, but the likelihood of success seems to be waning 3. MONSE: concerning for hepatorenal failure - noted rise in Cr over last 48h - appears to be responding to albumin/lasix - will cont albumin, but back off on diuretics (stopped IV furosemide and started oral furosemide) - attempt 1 unit PRBCs today 3. HCC (new dx this admission) - AFP of 1600 with liver mass and portal vein thrombus - MRI liver demonstrated a 3.5 cm tumor with portal vein thrombosis, reviewed imaging in detail with radiology - there is not characteristic enhancement of the lesion as expected with HCC but this may be limited due to large portal vein thrombus limited perfusion - treatment options are very much dependent on his liver function recovering following treatment (if possible) of his portal vein thrombosis - will plan to repeat imaging and/or pursue bx prior to initiating therapy, I am very concerned he likely will not make it to tx. - rising ammonia with concern for early hepatic encephalopathy, cont. lactulose 4. MM - treatment on hold due to decompensated liver failure 5. DVT prophylaxis: no chemical prophylaxis d/t evidence for active bleeding DNR/DNI: MOLST form completed with Palliative care Dispo: requires inpt. care for blood transfusion and continued monitoring of labs
[2019-06-29] MEDS: HYDROcodone/ACETAMIN 5-325 MG* 1 TAB PO PRN (13:40)
[2019-06-29] MEDS ORDERED: Furosemide IV* 10 MG/ML 2 ML VIAL (20 MG) IV SLOW PU ONE (17:03)
[2019-06-30] MEDS: HYDROcodone/ACETAMIN 5-325 MG* 1 TAB PO PRN (03:52)
[2019-06-30 06:11] LABS: Hematocrit 23 % (42-52); Mean Corpuscular HGB Conc 35 g/dL (31-36); Mean Corpuscular Hemoglobin 36 pg (27-31); Mean Corpuscular Volume 105 fL (80-94); Mean Platelet Volume 10.1 fL (7.4-10.4); Platelet Count 79 10^3/uL (150-450); Red Blood Count 2.22 10^6 /uL (4.18-5.48); Red Cell Distribution Width 26 % (10-15); White Blood Count 6.2 10^3/uL (3.5-10.8)
[2019-06-30 06:15] LABS: Albumin 3.6 g/dL (3.2-5.2); Albumin/Globulin Ratio 1.3 (1-3); Calcium 10.1 mg/dL (8.6-10.3); EGFR African American 28.4 (>60); EGFR Non-African American 23.5 (>60); Globulin 2.7 g/dL (2-4); Magnesium 2.8 mg/dL (1.9-2.7); Potassium 4.4 mmol/L (3.5-5.0); Total Bilirubin 9.1 mg/dL (0.2-1.0); Total Protein 6.3 g/dL (6.4-8.9)
[2019-06-30] MEDS: Albumin Human 25%* 25 GM/100 ML BTL IV SCH (09:30)
[2019-06-30] MEDS: Morphine TAB Extended Release (*) 15 MG TAB.ER PO SCH ×2 (09:31→23:58)
[2019-06-30] MEDS: Acyclovir* 400 MG TAB PO SCH (09:44)
[2019-06-30] MEDS: RiFAXimin* 550 MG TAB PO SCH (09:44)
[2019-06-30] MEDS: Pantoprazole TAB * 40 MG TAB PO SCH (09:44)
[2019-06-30] MEDS: Spironolactone TAB* 25 MG PO SCH (09:44)
[2019-06-30] MEDS: Furosemide TAB* 20 MG PO SCH (09:44)
[2019-06-30] MEDS: Nadolol TAB* 40 MG PO SCH (09:44)
[2019-06-30] MEDS ORDERED: Lorazepam PYXIS KEY PRN (10:17)
[2019-06-30] MEDS ORDERED: LORazepam INJ* 2 MG/ML 1 ML VIAL IV PUSH PRN (10:17)
[2019-06-30] MEDS ORDERED: Ondansetron ODT TAB* 4 MG SL PRN (10:23)
[2019-06-30] MEDS: Morphine INJ* 2 MG/ML 1 ML SYRINGE (TWO MG - NEW SYRINGE VERSION) IV PRN (11:03)
[2019-07-01] MEDS: Morphine TAB Extended Release (*) 15 MG TAB.ER PO SCH ×2 (10:25→21:16)
[2019-07-01] MEDS: Pantoprazole TAB * 40 MG TAB PO SCH (10:26)
[2019-07-01 20:12] VITALS: BP 111/48
[2019-07-02] MEDS: Morphine INJ* 2 MG/ML 1 ML SYRINGE (TWO MG - NEW SYRINGE VERSION) IV PRN ×6 (02:55→22:54)
[2019-07-02] MEDS: Morphine TAB Extended Release (*) 15 MG TAB.ER PO SCH ×2 (07:39→19:50)
[2019-07-02] MEDS: Pantoprazole TAB * 40 MG TAB PO SCH (07:39)
--- NOTE | 2019-07-02 10:46 | PN ---
Progress Note - Progress Note Date of Service: 07/02/19 SOAP: Subjective: [Full comfort measures. He has not been alert today. No po intake in 2-3 days. ] Objective: [ Vital Signs: Temp Pulse Resp BP Pulse Ox 98.0 F 80 17 111/48 97 07/01/19 20:07 07/01/19 20:07 07/02/19 09:58 07/01/19 20:07 07/02/19 07:40 Acetaminophen (Tylenol Tab*) 650 mg PO Q6H PRN PRN Reason: MILD PAIN or TEMP > 100.4 Last Admin: 06/23/19 01:38 Dose: 650 mg Hydrocodone Bitart/Acetaminophen ([place] 5-325 Tab*) 1 tab PO Q4HR PRN PRN Reason: Moderate pain Last Admin: 06/30/19 03:52 Dose: 1 tab Lorazepam (Ativan Inj*) 0.5 mg IV PUSH Q4H PRN PRN Reason: ANXIETY Miscellaneous (Ativan Pyxis Morales) 1 ea N/A .ATIVAN IV MORALES PRN PRN Reason: PYXIS MORALES Morphine Sulfate (Ms Contin(*)) 15 mg PO BID [facility] Last Admin: 07/02/19 07:39 Dose: Not Given Morphine Sulfate (Morphine Inj (Syringe))*) 2 mg IV Q2H PRN PRN Reason: PAIN - SEVERE Last Admin: 07/02/19 09:26 Dose: 2 mg Ondansetron HCl (Zofran Odt Tab*) 4 mg SL Q8H PRN PRN Reason: NAUSEA/VOMITING Pantoprazole Sodium (Protonix Tab*) 40 mg PO DAILY [facility] Last Admin: 07/02/19 07:39 Dose: Not Given Exam: Gen: Non-responsive Resp: even, unlabored respirations Abd: distended Skin: jaundice Assessment: [64 yo male with multiple myeloma, HCC, and cirrhosis secondary to Hep C admitted with bilateral pneumothorax, PNA and decompensated liver failure and recent variceal bleed and portal vein thrombus with rapid decline now on full comfort measures.] Plan: [1. Continue full comfort measures Dispo: he is not stable for transfer, anticipate his within 48h]
[2019-07-03] MEDS: Morphine INJ* 2 MG/ML 1 ML SYRINGE (TWO MG - NEW SYRINGE VERSION) IV PRN ×4 (01:13→08:57)
[2019-07-03] MEDS: Atropine 1% (ORAL/SL)* 15 ML BTL SL PRN ×5 (06:26→23:42)
[2019-07-03] MEDS ORDERED: Morphine ORAL.SOLN 10 mg* 2 MG/ML UDC 5 ml PO PRN (10:04)
--- NOTE | 2019-07-03 10:09 | PN ---
Progress Note - Progress Note Date of Service: 07/03/19 SOAP: Subjective: [No overnight events. ] Objective: [ Vital Signs: Temp Pulse Resp BP Pulse Ox 98.0 F 80 22 111/48 94 07/01/19 20:07 07/01/19 20:07 07/03/19 08:57 07/01/19 20:07 07/03/19 00:00 Exam: Gen: Non-responsive Resp: even, unlabored respirations but slightly tachypneic with a few secretions Abd: distended Skin: jaundice Assessment: [64 yo male with multiple myeloma, HCC, and cirrhosis secondary to Hep C admitted with bilateral pneumothorax, PNA and decompensated liver failure and recent variceal bleed and portal vein thrombus with rapid decline now on full comfort measures.] Plan: [1. Continue full comfort measures - increase morphine dose with goal for RR <20/min Dispo: he is not stable for transfer, anticipate his within 24-48h
[2019-07-03] MEDS: Pantoprazole TAB * 40 MG TAB PO SCH (10:29)
[2019-07-03] MEDS: Morphine TAB Extended Release (*) 15 MG TAB.ER PO SCH (10:30)
[2019-07-03] MEDS: Morphine 4 MG/ML VIAL (1 ml) 4 MG/ML VIAL IV PRN ×3 (13:34→23:41)
[2019-07-04] MEDS: Morphine 4 MG/ML VIAL (1 ml) 4 MG/ML VIAL IV PRN ×3 (02:27→17:46)
[2019-07-04] MEDS: Pantoprazole TAB * 40 MG TAB PO SCH (07:46)
[2019-07-04] MEDS: Atropine 1% (ORAL/SL)* 15 ML BTL SL PRN ×4 (08:49→21:34)
--- NOTE | 2019-07-04 11:01 | PN ---
Progress Note - Progress Note Date of Service: 07/04/19 SOAP: Subjective: []has been comfortable overnight. non responsive Acetaminophen (Tylenol Tab*) 650 mg PO Q6H PRN PRN Reason: MILD PAIN or TEMP > 100.4 Last Admin: 06/23/19 01:38 Dose: 650 mg Atropine Sulfate (Atropine 1% (Oral/Sl)*) 2 drop SL Q2H PRN PRN Reason: Secretions Last Admin: 07/04/19 08:49 Dose: 2 drp Lorazepam (Ativan Inj*) 0.5 mg IV PUSH Q4H PRN PRN Reason: ANXIETY Miscellaneous (Ativan Pyxis Morales) 1 ea N/A .ATIVAN IV MORALES PRN PRN Reason: PYXIS MORALES Morphine Sulfate (Morphine 4 Mg/Ml Vial (1 Ml)) 4 mg IV Q2H PRN PRN Reason: PAIN - SEVERE Last Admin: 07/04/19 08:48 Dose: 4 mg Morphine Sulfate (Morphine Oral.Soln 10 Mg*) 15 mg PO Q2H PRN PRN Reason: Pain/agitation/RR>20 Ondansetron HCl (Zofran Odt Tab*) 4 mg SL Q8H PRN PRN Reason: NAUSEA/VOMITING Pantoprazole Sodium (Protonix Tab*) 40 mg PO DAILY [facility] Last Admin: 07/04/19 07:46 Dose: Not Given Objective: [] Vital Signs Temp Pulse Resp BP Pulse Ox 98.0 F 80 15 111/48 94 07/01/19 20:07 07/01/19 20:07 07/04/19 09:43 07/01/19 20:07 07/03/19 16:00 Gen: Non-responsive Resp: even, unlabored respirations but slightly tachypneic with a few secretions Abd: distended Skin: jaundice Assessment: [64 yo male with multiple myeloma, HCC, and cirrhosis secondary to Hep C admitted with bilateral pneumothorax, PNA and decompensated liver failure and recent variceal bleed and portal vein thrombus with rapid decline now on full comfort measures.] Plan: [1. Continue full comfort measures - continue morphine.
[2019-07-04] MEDS: Morphine ORAL CONCENTRATE* 5 MG/0.25 ML ORAL.SYRIN SL PRN (21:33)
[2019-07-05] MEDS: Morphine ORAL CONCENTRATE* 5 MG/0.25 ML ORAL.SYRIN SL PRN ×4 (02:30→10:17)
[2019-07-05] MEDS: Atropine 1% (ORAL/SL)* 15 ML BTL SL PRN ×2 (02:31→06:05)
[2019-07-05] MEDS: Pantoprazole TAB * 40 MG TAB PO SCH (07:50)
--- NOTE | 2019-07-05 11:55 | PN ---
Progress Note - Progress Note Date of Service: 07/05/19 SOAP: Subjective: [] Agonal breathing, unresponsive. Son and brother by his side, feel he is getting worse this morning. Morphine worked fine Objective: [] Vital Signs Temp Pulse Resp BP Pulse Ox 98.0 F 80 26 111/48 94 07/01/19 20:07 07/01/19 20:07 07/05/19 10:23 07/01/19 20:07 07/03/19 16:00 Gen: Non-responsive Resp: even, unlabored respirations but slightly tachypneic with a few secretions Abd: distended Skin: jaundice Assessment: [64 yo male with multiple myeloma, HCC, and cirrhosis secondary to Hep C admitted with bilateral pneumothorax, PNA and decompensated liver failure and recent variceal bleed and portal vein thrombus with rapid decline now on full comfort measures. Expect he would today.] Plan: [1. Continue full comfort measures - continue morphine.
--- NOTE | 2019-07-06 13:37 | DS ---
CC: Dr. Vasques; Dr. Corbett, Dr. Palmer* DISCHARGE SUMMARY/ NOTE: DATE OF ADMISSION: 06/19/19 DATE OF : 07/05/19 PRIMARY CARE PROVIDER: Dr. Palmer. PRIMARY ONCOLOGIST: Dr. Dex Vasques. CONSULTING CANDLE MAKING SUPERVISOR: Dr. Corbett. CONSULTING INFECTIOUS DISEASE SPECIALIST: Dr. Darnell Stearns. CONSULTING PALLIATIVE PHYSICIAN: Dr. Leni Nino. ATTENDING PHYSICIAN: Dr. Ferdinand Argueta* (dictated by VANNA Hamilton). DISCHARGING PROVIDER: VANNA Hamilton PRIMARY DIAGNOSES LEADING TO : 1. Decompensated liver failure secondary to cirrhosis as a result of prior hepatitis C, complicated by portal vein thrombosis. 2. Multiple myeloma. 3. Hepatocellular carcinoma. 4. Pneumothorax. 5. Pneumonia. 6. Recent variceal bleed. HOSPITAL IMAGIN. Chest x-ray 06/19/19 shows moderate-sized right pneumothorax with no mediastinal shift. The pneumothorax has been surgically decompressed by the time of this dictation. There are bilateral lytic rib lesions with fractures which are better characterized by CT. There is left chest wall subcutaneous emphysema, left mid and lower zone airspace opacification. 2. Chest x-ray 06/19/19 later in the day shows status post placement of right thoracotomy tube and decompression of moderately sized pneumothorax, otherwise unchanged. 3. CT chest 06/19/19 shows multiple lytic osseous lesions consistent with multiple myeloma and bilateral rib fractures as well as small bilateral hydropneumothoraces with a right-sided chest tube, but no left chest tube. There is subcutaneous emphysema about the chest, left greater than right; bilateral pulmonary infiltrates, left greater than right, consistent with pneumonia as well as hepatic cirrhosis with borderline splenomegaly and peritoneal ascites. 4. Chest x-ray 06/20/19 shows unchanged right thoracotomy chest tube with no residual pneumothorax. 5. CT abdomen and pelvis 06/21/19 shows a 2.3 cm lesion in the right lobe of the liver, demonstrates early arterial enhancement; washout is likely, however, evaluation of this is difficult due to streak artifact. Washout would make this an LI-RADS 5 lesion. Thrombus extends from the superior mesenteric vein/ splenic vein confluence into the left and right portal veins, it is unclear if this is medicare sales representative of bland or tumor thrombus. Cirrhotic morphology of the liver with stigmata of portal venous hypertension including moderate volume ascites. There are innumerable multiple lytic lesions consistent with myeloma throughout the axial skeleton and bilateral iliac wing pathologic fractures, epidural extension from a T12 lesion resulting in at least moderate spinal canal stenosis, and similar distention of the gallbladder with gallstone contained within. 6. Chest x-ray 06/22/19 shows a right chest tube in place, subcutaneous emphysema in the right chest and more increased subcutaneous emphysema in the left chest. Small left pneumothorax is noted. Multiple rib fractures. 7. Portal vein ultrasound 06/24/19 shows a Doppler interrogation demonstrates no flow in the echogenic material filling the left and right portal vein, main portal vein and superior mesenteric vein, this favors a bland thrombus. 8. MRI of the abdomen 06/25/19 shows portal vein thrombus with no evidence of significant enhancement noted within. There is an ill-defined mass noted in the right lobe of the liver adjacent to the rodo hepatis measuring approximately 3.5 cm. 9. Chest x-ray 06/29/19 shows mixed interstitial and airspace disease bilaterally progressed from prior exam. HOSPITAL COURSE: This is a 64-year-old gentleman with known multiple myeloma and liver cirrhosis who had been hospitalized 06/05/19 through 06/10/19 for a variceal bleed. The patient required 2 endoscopic banding procedures to control bleeding and he was subsequently discharged and seen in followup in the oncology office. He had reported feeling relatively well with the exception of significant lower extremity edema following that hospitalization. It was noted at that followup visit in the clinic on 06/08/19 that his bilirubin had taken a significant jump from ranging in the 2 to 3 range up to 9. The patient was motivated to continue treatment for his multiple myeloma which had been initiated with its first cycle of RVD 05/25/19. Repeat labs noted continued elevation in bilirubin, but the patient was otherwise asymptomatic. He then presented to the emergency department with rather acute onset of shortness of breath. Initial chest x-ray demonstrated bilateral pneumothorax with multiple rib fractures, all pathologic in origin secondary to his multiple myeloma. He subsequently received a chest tube with appropriate decompression of the pneumothorax but was also noted to have bilateral pulmonary infiltrates likely representing pneumonia. He was subsequently admitted to the hospital and started on IV antibiotics with surgery team managing his chest tube, which was discontinued after several days. His liver function unfortunately became progressively worse throughout his hospitalization. He underwent a CT scan of his abdomen and pelvis which demonstrated a newly recognized liver lesion concerning for hepatocellular carcinoma with an associated portal vein thrombus. It was unclear on initial evaluation whether this thrombus was bland versus tumor. His platelet count at this time was hovering near 50,000, and with his recent variceal bleed, it did not appear chapman to empirically anticoagulate him for a new finding of portal vein thrombus. Case was reviewed in detail with GI surgical and oncology team. It became quite apparent that his treatment options for his two malignancies, multiple myeloma and presumed hepatocellular carcinoma, were extremely limited in the setting of decompensated liver failure. The thought process was that the portal vein thrombus was likely what had initiated the sudden decline in his liver function, and in order to safely anticoagulate him, recommendations were to undergo serial banding procedures of his known esophageal varices, at the point that he was sufficiently banded could start anticoagulation and monitor him closely for improvement in his liver function and then re-visit treatment options for his myeloma and confirm the diagnosis of hepatocellular carcinoma. Of note, an AFP was completed during his hospitalization, which was significantly elevated at 1628. The patient underwent EGD on 06/25/[address] Decker, which showed multiple large varices, one of which bled spontaneously during the endoscopy procedure and he received 3 subsequent bands. Following the procedure, the patient's hemoglobin drifted down slowly. He had no hematemesis or obvious melena and his mental status began to wane. His ammonia levels subsequently climbed as did his creatinine. Given the patient's obvious progression of liver failure with associated encephalopathy despite maximal support of options, he and his family elected to pursue comfort measures. The patient was transitioned to comfort care on and subsequently in the presence of his family on 07/05/19. Time of was recorded at 1105. VANNA HAMILTON [id number]/[id number] #: [id number] [facility]
== END 2019-07-05 11:05 | disposition expired | DRG 143 ==
LOC: ED 19:48 → SSU 21:49 → MED 07-01 18:30
PROVIDERS: ADMIT Internal Medicine; ATTEND Internal Medicine Hematology & Oncology
PROC: 0W9930Z Drainage of Right Pleural Cavity with Drainage Device, Percutaneous Approach (ICD-10-PCS; 2019-06-19)
PROC: 06L38CZ Occlusion of Esophageal Vein with Extraluminal Device, Via Natural or Artificial Opening Endoscopic (ICD-10-PCS; 2019-06-25)
PROC: 30233N1 Transfusion of Nonautologous Red Blood Cells into Peripheral Vein, Percutaneous Approach (ICD-10-PCS; principal; 2019-07-02)
DX: J93.9 Pneumothorax, unspecified (principal); I85.11 Secondary esophageal varices with bleeding; I81 Portal vein thrombosis; J18.9 Pneumonia, unspecified organism; N17.9 Acute kidney failure, unspecified; C90.00 Multiple myeloma not having achieved remission; C22.0 Liver cell carcinoma; M84.58XA Pathological fracture in neoplastic disease, other specified site, initial encounter for fracture; R18.8 Other ascites; K72.90 Hepatic failure, unspecified without coma; K74.69 Other cirrhosis of liver; B19.20 Unspecified viral hepatitis C without hepatic coma; Z66 Do not resuscitate; Z51.5 Encounter for palliative care; G89.3 Neoplasm related pain (acute) (chronic); J98.2 Interstitial emphysema; R16.1 Splenomegaly, not elsewhere classified; Z92.21 Personal history of antineoplastic chemotherapy; Z87.442 Personal history of urinary calculi; Z92.3 Personal history of irradiation; Z82.5 Family history of asthma and other chronic lower respiratory diseases; Z72.89 Other problems related to lifestyle; Z87.891 Personal history of nicotine dependence; Z83.79 Family history of other diseases of the digestive system; Z80.42 Family history of malignant neoplasm of prostate; Z80.0 Family history of malignant neoplasm of digestive organs
CPT/HCPCS: 36415; 71045; 71250; 74178; 74183; 80048; 80053; 80202; 82105; 82140; 82248; 83605; 83735; 84100; 84484; 85025; 85027; 85610; 86850; 86900; 86901; 86922; 87040; 87070; 87205; 87899; 90732; 93005; 93975; 99156; 99232; 99233; 99285; A9270-GY; A9579; J0692; J1940; J2250; J2270; J3010; J3370; P9040; P9047; Q9967